=== PATIENT | female | born 1965 | race Caucasian/White ===

== ENCOUNTER 2017-01-13 13:17 | Inpatient (IN) | payer OTHER ==
[~2017-01-13] VITALS: Ht 170.2 cm; Wt 66.0 kg
[~2017-01-13 13:17] MED LIST: ALPR0.5T PO; AMOX1TAB10 PO; ASPI81TA3 PO; CHOL50009 PO; FLUC200T52 PO; GABA300C PO; HYD25 PO; HYDR-902 PO; IPRA3AMP INHALATION; IPRA4AER INHALATION; LACTINEX PO; LEVO25TA53 PO; NEBU1KIT17 MC; PRED10TA PO; VENL150C PO
--- NOTE | 2017-01-13 13:49 | ERA ---
ER Documentation Chief Complaint Date/Time DATE: 01/13/17 TIME: 13:49 Chief Complaint CHEST PAIN X 1 DAY HPI The patient is a 51-year-old female, presenting to the ER because of left-sided chest discomfort intermittently for 1 day, 04/17, associated with left hand numbness intermittently and dyspnea. She has similar symptoms previously. She denies chest pain with exertion or vomiting or diaphoresis. She denies abdominal pain, complains of constipation, denies dysuria, diarrhea. She smokes half a pack a day, denies drinking, smokes marijuana Past medical history: Depression, COPD, chronic low back pain, hypothyroidism, asthma Past surgical history: Hysterectomy, back, thoracic outlet, bilateral shoulder arthroscopy, bilateral knee arthroscopy ROS All systems reviewed and are negative except as per history of present illness. Medications Home Meds Active Scripts Fluconazole* (Fluconazole*) 200 Mg Tablet, 200 MG PO ONCE Y for YEAST SYMPTOMS, #1 TAB Prov:MESFIN BARBOZA. 06/26/16 Lactobacillus Acidophilus* (Lactinex*) 1 Tab Chew, 1 TAB PO BID for 5 Days, TAB Prov:MESFIN BARBOZA . 06/26/16 Amoxicillin/Potassium Clav (Amox-Clav 875-125 mg Tablet) 875-125 mg Tab, 1 TAB PO BID for 5 Days, TAB Prov:MESFIN BARBOZA 06/26/16 Nebulizer (Agiliance Disposable Nebulizer) 1 Each Each, 1 EACH MC ONCE Y for SHORTNESS OF BREATH, #1 Prov:MESFIN BARBOZA 06/26/16 Ipratropium-Albuterol (Ipratropium-Albuterol) 0.5-3 Mg/3 Ml Ampul.neb, 3 ML INHALATION Q6, #30 VIAL use every 6hours scheduled for 8 doses and then use as needed only every 4hours for shortness of breath Prov:MSEFIN BARBOZA 06/26/16 Albuterol/Ipratropium* (Combivent Respimat*) 20-100 Mcg/Inh - 4 Gm Aer.w.adap, 1 PUFF INHALATION QID, #1 INHALER Prov:MESFIN BARBOZA 06/26/16 Prednisone* (Prednisone*) 10 Mg Tab, 10 MG PO DAILY, #21 TAB take 6 pills tomorrow take 5 pills on the next day take 4 pills on the next day take 3 pills on the next day take 2 pills on the next day take 1 pill on the next day then stop Prov:MESFIN BARBOZA. 06/26/16 Aspirin (Aspirin) 81 Mg Chew, 81 MG PO DAILY for 30 Days, TAB Prov:MESFIN BARBOZA. 06/26/16 Alprazolam* (Xanax*) 0.5 Mg Tab, 0.5 MG PO QHS Y for ANXIETY, #20 TAB Prov:MESFIN BARBOZA. 06/26/16 Hydrochlorothiazide* (Hydrochlorothiazide*) 25 Mg Tab, 25 MG PO DAILY, #30 TAB Prov:DEACON MORALES MD 09/21/15 Reported Medications Topiramate* (Topiramate*) 100 Mg Tablet, 100 MG ORAL DAILY, #30 01/13/17 Hydrocodone/Acetaminophen ([place] 10-325 Tablet) 1 Each Tablet, 1 EACH PO Q6 Y for PAIN, TAB 06/20/16 Levothyroxine Sodium* (Levothyroxine Sodium*) 25 Mcg Tablet, 25 MCG PO AC BREAKFAST, TAB 03/21/15 Cholecalciferol* (Vitamin D*) 5,000 Unit Tablet, 5000 UNIT PO DAILY, TAB 03/21/15 Venlafaxine Hcl* (Effexor XR*) 150 Mg Cap.sr.24h, 300 MG PO QAM, CAP 08/08/14 Gabapentin* (Neurontin*) 300 Mg Capsule, 300 MG PO TID, CAP 08/08/14 Discontinued Reported Medications Hydrocodone/Acetaminophen ([place] 10-325 Tablet) 1 Each Tablet, 1 EACH PO Q6 Y for PAIN, TAB 06/20/16 Allergies Allergies: Coded Allergies: morphine (Verified Adverse Reaction, Unknown, headache, 06/22/16) Not an allergy PMhx/Soc History of Surgery: Yes (L50S1 Bilateral Spine Fusion Surg 2012,Hysterectomy) Anesthesia Reaction: No Hx Neurological Disorder: No Hx Respiratory Disorders: No Hx Cardiac Disorders: No Hx Psychiatric Problems: Yes (Depression) Hx Miscellaneous Medical Probl: Yes (chronic bronchitis) Hx Alcohol Use: No Hx Substance Use: No Hx Tobacco Use: Yes Physical Exam Vitals Vital Signs Date Time Temp Pulse Resp B/P Pulse Ox O2 Delivery O2 Flow Rate FiO2 01/13/17 15:24 65 17 113/65 98 Room Air 01/13/17 15:07 55 20 99 21 01/13/17 14:13 59 17 116/71 100 Room Air 01/13/17 13:21 98.1 75 18 135/72 99 Physical Exam Const: No acute distress. Head: Atraumatic. Eyes: Normal Conjunctiva. ENT: Normal External Ears, Nose and Mouth. Neck: Full range of motion. No meningismus. Resp: Bilateral expiratory wheezes Cardio: Regular rate and rhythm, no murmurs. Abd: Soft, non distended, normal bowel sounds, non tender. Skin: No petechiae or rashes. Back: No midline or flank tenderness. Ext: No cyanosis, or edema. Neur: Awake and alert. No focal deficit Psych: Normal Mood and Affect. Result Diagram: 01/13/17 1410 01/13/17 1410 Results 24 hrs Laboratory Tests Test 01/13/17 14:10 White Blood Count 9.410^3/ul Red Blood Count 3.5710^6/ul Hemoglobin 11.7g/dl Hematocrit 34.9% Mean Corpuscular Volume 97.8fl Mean Corpuscular Hemoglobin 32.8pg Mean Corpuscular Hemoglobin Concent 33.5g/dl Red Cell Distribution Width 12.7% Platelet Count 09512^3/UL Mean Platelet Volume 9.9fl Neutrophils % 77.9% Lymphocytes % 14.5% Monocytes % 6.4% Eosinophils % 0.6% Basophils % 0.3% Nucleated Red Blood Cells % 0.0/100WBC Neutrophils # 7.310^3/ul Lymphocytes # 1.410^3/ul Monocytes # 0.610^3/ul Eosinophils # 0.110^3/ul Basophils # 0.010^3/ul Nucleated Red Blood Cells # 0.010^3/ul Prothrombin Time 14.1Sec Prothrombin Time Ratio 1.1 INR International Normalized Ratio 1.09 Activated Partial Thromboplast Time 27.6Sec Sodium Level 140mmol/L Potassium Level 3.1mmol/L Chloride Level 115mmol/L Carbon Dioxide Level 18mmol/L Anion Gap 10 Blood Urea Nitrogen 12mg/dl Creatinine 0.61mg/dl Glucose Level 89mg/dl Calcium Level 8.1mg/dl Creatine Kinase 41IU/L Creatine Kinase Index 0.6 Creatinine Kinase MB (Mass) 0.26ng/ml Troponin I < 0.012ng/ml Current Medications Medications (Trade) Dose Ordered Sig/Marnie Route PRN Reason Start Time Stop Time Status Last Admin Dose Admin Sodium Chloride (NS) 1,000 ml @ 1,000 mls/hr Q1H ONCE IV 01/13/17 14:00 01/13/17 14:59 DC 01/13/17 14:05 Levalbuterol (Xopenex Neb) 1.25 mg ONCE ONCE HHN 01/13/17 14:00 01/13/17 14:01 DC 01/13/17 15:07 Ipratropium [place] (Atrovent 0.02% (Neb)) 0.5 mg ONCE ONCE HHN 01/13/17 14:00 01/13/17 14:01 DC 01/13/17 15:07 Aspirin (Aspirin) 325 mg ONCE ONCE PO 01/13/17 14:00 01/13/17 14:01 DC 01/13/17 14:05 Nitroglycerin (Nitroglycerin 2% Oint) 1 inch ONCE ONCE TD 01/13/17 14:00 01/13/17 14:01 DC 01/13/17 14:29 Potassium Chloride (Klor-Con 20) 40 meq ONCE STAT PO 01/13/17 15:16 01/13/17 15:28 DC 01/13/17 15:52 Procedures/MDM EKG: Read by emergency physician Rate/Rhythm: Normal Sinus Rhythm 94 beats/min QRS, ST, T-waves: No ST elevation, no T inversion, incomplete right bundle branch block, inferior, anterior, lateral ST abnormality Impression: Abnormal EKG [place] [id number] Radiology Main Line: [phone] DIAGNOSTIC IMAGING REPORT Patient: RAHEEL BAKER : 1965 Age: 51 Sex: F MR #: [id number] DOS: 01/13/17 1351 Ordering MD: CHICHI ALSTON MD Location: E/R Room/Bed: PROCEDURE: XR Chest. CLINICAL INDICATION: chest pain TECHNIQUE: Single frontal view of the chest was obtained COMPARISON: 06/19/16 FINDINGS: The heart and mediastinum are within normal limits. The lungs are clear. Previously seen nodular opacity overlying the right lower lobe is not visualized in the current study. There is a healed right posterior sixth rib fracture. There is no pleural effusion or pneumothorax. RPTAT: AA IMPRESSION: No acute disease. .Amandeep Ha MD, Date Time Electronically viewed and signed by .Amandeep Ha MD, MD on 01/13/2017 14: 21 .S/ CC: CHICHI ALSTON MD MEDICAL MAKING DECISION: The patient is a 51-year-old female with multiple cardiac risk factors, presenting with acute chest that is concerning for ACS, acute hypokalemia, acute bronchospasm. She was treated with aspirin 325 mg p.o. , 1 inch of nitroglycerin ointment to the chest wall for acute chest pain, potassium chloride 40 mEq p.o. for low potassium, Xopenex 1.25 mg and Atrovent 0.5 mg nebulizer for bronchospasm with good response The differential diagnoses considered include but are not limited to acute coronary syndrome, acute myocardial infarction, pericarditis, pulmonary embolism , aortic dissection, pneumonia, pleural effusion, pneumothorax, GERD, chest wall pain. Departure Diagnosis: Primary Impression: Chest pain Additional Impressions: Hypokalemia Anemia Condition: Stable Comments I discussed the findings with the patient. I discussed the patient with the on- call hospitalist Dr. Rene who was made aware of the lab, the treatment, the patient condition. The patient is admitted to telemetry at 3 PM The patient's blood pressure was elevated (>120/80) but appears stable without evidence of hypertension emergency or urgency. The patient was counseled about the risks of hypertension and urged to pursue outpatient monitoring and therapy within a week with their primary care physician. CHICHI ALSTON MD January 13, 2017 13:49
[2017-01-13] MEDS ORDERED: IPRATROPIUM (NEB) 0.5 MG/2.5 ML AMP HHN ONE (14:00)
[2017-01-13] MEDS ORDERED: NITROGLYCERIN 2% 1 GM OINT PKT TD ONE (14:00)
[2017-01-13] MEDS ORDERED: LEVALBUTEROL (NEB) 1.25 MG/0.5 ML AMP HHN ONE (14:00)
[2017-01-13] MEDS ORDERED: ASPIRIN 325 MG TAB PO ONE (14:00)
[2017-01-13] MEDS ORDERED: SOD CHLORIDE 0.9% 1,000 ML IV ONE (14:00)
--- NOTE | 2017-01-13 14:22 | RADRPT ---
PROCEDURE: XR Chest. CLINICAL INDICATION: chest pain TECHNIQUE: Single frontal view of the chest was obtained COMPARISON: 06/19/16 FINDINGS: The heart and mediastinum are within normal limits. The lungs are clear. Previously seen nodular opacity overlying the right lower lobe is not visualized in the current stud y. There is a healed right posterior sixth rib fracture. There is no pleural effusion or pneumothorax. RPTAT: AA IMPRESSION: No acute disease. .Amandeep Ha MD, MD Date Time Electronically viewed and signed by .Amandeep Ha MD, on 01/13/2017 14:21 .S/
[2017-01-13 14:29] LABS: ADD SCAN DIFF NO
[2017-01-13 14:31] LABS: BASOPHILS % 0.3 % (0.0-2.0); EOSINOPHILS # 0.1 10^3/ul (0.0-0.5); EOSINOPHILS % 0.6 % (0.0-7.0); HEMATOCRIT 34.9 % (37.0-47.0); HEMOGLOBIN 11.7 g/dl (12.0-16.0); LYMPHOCYTES # 1.4 10^3/ul (0.8-2.9); LYMPHOCYTES % 14.5 % (15.0-51.0); MEAN CORPUSCULAR HEMOGLOBIN 32.8 pg (29.0-33.0); MEAN CORPUSCULAR HGB CONC 33.5 g/dl (32.0-37.0); MEAN CORPUSCULAR VOLUME 97.8 fl (82.0-101.0); MEAN PLATELET VOLUME 9.9 fl (7.4-10.4); MONOCYTE # 0.6 10^3/ul (0.3-0.9); MONOCYTES % 6.4 % (0.0-11.0); NEUTROPHIL # 7.3 10^3/ul (1.6-7.5); NEUTROPHILS % 77.9 % (39.0-77.0); PLATELET COUNT 216 10^3/UL (140-415); RED BLOOD COUNT 3.57 10^6/ul (4.20-5.40); RED CELL DISTRIBUTION WIDTH 12.7 % (11.5-14.5); WHITE BLOOD COUNT 9.4 10^3/ul (4.8-10.8)
[2017-01-13] MEDS ORDERED: TOPI-25 ORAL (14:33)
[2017-01-13 14:46] LABS: INR 1.09; PROTIME 14.1 Sec (12.2-14.2); PT RATIO 1.1
[2017-01-13 14:47] LABS: PARTIAL THROMBOPLASTIN TIME 27.6 Sec (25.0-35.0)
[2017-01-13 14:51] LABS: CREATINE KINASE 41 IU/L (23-200)
[2017-01-13 14:52] LABS: ANION GAP 10 (8-16); BLOOD UREA NITROGEN 12 mg/dl (7-20); CALCIUM 8.1 mg/dl (8.4-10.2); CARBON DIOXIDE 18 mmol/L (21-31); CHLORIDE 115 mmol/L (97-110); CREATININE 0.61 mg/dl (0.44-1.00); GLUCOSE 89 mg/dl (70-220); POTASSIUM 3.1 mmol/L (3.5-5.1); SODIUM 140 mmol/L (135-144)
[2017-01-13 15:01] LABS: CK-MB 0.26 ng/ml (0.0-2.4)
[2017-01-13] MEDS ORDERED: POTASSIUM CHLORIDE (SR) 20 MEQ TAB PO STA (15:16)
[2017-01-13 15:18] LABS: TROPONIN-I < 0.012 ng/ml (0.00-0.12)
[2017-01-13] MEDS ORDERED: NITROGLYCERIN (SL) 0.4 MG TAB SL PRN (15:30)
[2017-01-13] MEDS ORDERED: ACETAMINOPHEN 325 MG TAB PO PRN (15:30)
[2017-01-13] MEDS ORDERED: morphine 2 MG INJ IV PRN (15:30)
[2017-01-13] MEDS ORDERED: ALBUTEROL/IPRATROPIUM (NEB) 3 ML AMP HHN PRN (15:30)
[2017-01-13] MEDS ORDERED: ONDANSETRON 4 MG INJ IV PRN (15:30)
[2017-01-13] MEDS ORDERED: NACL 0.9% 3 ML SYG IV SCH (15:30)
[2017-01-13] MEDS ORDERED: NA PHOSPHATE/BIPHOS 133 ML ENEMA PR PRN (15:30)
[2017-01-13] MEDS: FAMOTIDINE 20 MG TAB PO SCH (15:52)
--- NOTE | 2017-01-13 15:59 | HP ---
DATE OF ADMISSION: 01/13/2017 CHIEF COMPLAINT: Chest pain. HISTORY OF PRESENT ILLNESS: This is a 51-year-old female with past medical history of asthma, depre ssion and hypothyroidism who has been having chest pain for the last 2 days, getting progressively w orse. She also noticed some left arm numbness which is new. She also had some nausea symptoms and decreased appetite, some abdominal pain symptoms and also some loose stools, some positive chills, b ut denies fevers, no upper or lower GI bleeding, no headaches or dizziness or loss of consciousness. She became concerned and decided to come into the ER where today, she was found with questionable ST depressions on EKG as well. PAST MEDICAL HISTORY: As stated above. ALLERGIES: MORPHINE. MEDICATIONS AT HOME: 1. Augmentin b.i.d. 2. Fluconazole 200 mg p.r.n. 3. Combivent q.i.d. 4. Xanax 0.5 mg at bedtime p.r.n. 5. Aspirin 81 mg daily. 6. Gabapentin 300 mg t.i.d. 7. [place] 10/325 q.6h. 8. Topiramate 100 mg daily. 9. Effexor XR 300 mg q.a.m. 10. Hydrochlorothiazide 25 mg daily. 11. Lactobacillus b.i.d. 12. Levothyroxine 25 mcg every morning. 13. Prednisone 10 mg daily. 14. Vitamin D 5000 units daily. PAST SURGICAL HISTORY: She had a L5 fusion surgery performed in 2011. She had thoracic outlet surg julian performed as well in the past. FAMILY HISTORY: Mother had diabetes. Father diabetes. One of her brothers had heart problems. He r daughter has Xnytl-Gewgrzulh-Ygyle syndrome. SOCIAL HISTORY: She smoked half a pack of cigarettes a day for the last 2 years. Occasional alcoho l use and smokes medical marijuana. PHYSICAL EXAMINATION: VITAL SIGNS: T-max 98.1, pulse 75, respirations 18, blood pressure 135/72, saturating at 99% on colby m air. GENERAL: The patient is lying in bed, answering questions appropriately, wearing DuoNeb in mild dis tress. HEENT: Pupils equal, round, react to light. Extraocular muscles intact. NECK: Supple, no thyromegaly. LUNGS: Distant breath sounds bilaterally. CARDIOVASCULAR: S1, S2 heard. No rubs or gallops. ABDOMEN: Soft, nontender, nondistended. Normal bowel sounds. No rebound or guarding. MUSCULOSKELETAL: No lower extremity ____. NEUROLOGIC: No focal deficits. LABORATORIES: CBC is normal. Sodium 140, potassium 1.1, chloride 115, CO2 of 18, BUN of 12, creati nine 0.6, glucose 89. Troponin is negative x1. IMAGING: Chest x-ray: No acute disease. ASSESSMENT AND PLAN: A 51-year-old female with chest pain symptoms x2 days, rule out acute coronary syndrome. 1. Chest pain. Admit to telemetry floor. We will get a cardiology consult and 2D echocardiogram, check TSH, A1c and lipid panel. Trend her troponins, put her on morphine, oxygen, nitroglycerin and aspirin as well. Rule out for acute coronary syndrome. 2. History of asthma. Again, DuoNebs p.r.n. 3. History of depression, Ativan p.r.n. 4. Hypothyroidism. Continue to monitor for now. Continue Synthroid. Check thyroid panel. 5. Gastrointestinal prophylaxis. Put her on H2 maggie. 6. Deep venous thrombosis prophylaxis, heparin subQ. Dictated By: MARYCARMEN DAHL/DANIELLE Conf#: [id number] DID#: [id number]
[2017-01-13] MEDS ORDERED: HYDROCODONE/APAP (5/325) TAB PO ONE (17:00)
[2017-01-13] MEDS ORDERED: ACETAMINOPHEN 325 MG TAB PO ONE (17:00)
[2017-01-13] MEDS: ALBUTEROL/IPRATROPIUM (NEB) 3 ML AMP NEB SCH ×2 (17:00→22:05)
[2017-01-13 18:36] VITALS: Ht 170.2 cm; Wt 66.0 kg
[2017-01-13 18:37] VITALS: PULSE 49
[2017-01-13 19:59] VITALS: BP 90/51; RESP 20
[2017-01-13 20:20] VITALS: PULSE 54
[2017-01-13] MEDS: GABAPENTIN 300 MG CAP PO SCH (20:41)
[2017-01-13] MEDS: HEPARIN 5,000 UNIT/0.5 ML VIAL SC SCH (20:43)
[2017-01-13] MEDS: L ACIDOPHIL/B LACTIS/B LONGUM CAPSULE PO SCH (21:00)
--- NOTE | 2017-01-13 21:39 | CONS ---
DATE OF ADMISSION: 01/13/2017 DATE OF CONSULTATION: 01/13/2017 TYPE OF CONSULTATION: Cardiology. REASON FOR CONSULTATION: Abnormal EKG and chest pain. CHIEF COMPLAINT: Shortness of breath, chest pain. HISTORY OF PRESENT ILLNESS: Thank you for this referral. History obtained from the patient, marleny resendeze review of the old chart. A 51-year-old female with history of COPD, asthma, depression, thyroid disorder who came to emergency room with the above complaint. The patient ____ in the past ____ fe lt tight in the chest. She has been coughing for the past few days. The pain is anterior, worse wi th breathing or with cough. It feels tight. Not related to exertion, ____ arm numbness. At this p oint has been placed on nitroglycerin complaining of severe headache. ALLERGIES: MORPHINE. MEDICATIONS: Per medication reconciliation, personally reviewed. PAST MEDICAL HISTORY: As above mentioned. PAST SURGICAL HISTORY: Status post L5 fusion surgery, 2011. FAMILY HISTORY: The patient's brother had a cardiac arrest in his 30s. Apparently he was told that he had "alcohol heart attack." Daughter had WPW syndrome. SOCIAL HISTORY: The patient actively still smokes. Occasionally uses alcohol. Denies any drug abu se, except for the marijuana. REVIEW OF SYSTEMS: As above mentioned, all other except positive for above and back pain. PHYSICAL EXAMINATION: VITAL SIGNS: Temperature 98.2, heart rate of 54, blood pressure 90/51, respiration rate of 20, satu rating 97%. HEENT: Normocephalic, atraumatic. Pupils are equal. CARDIOVASCULAR: Regular rate and rhythm. Systolic murmur. PULMONARY: With no wheezes, no rhonchi. GASTROINTESTINAL: Soft, nontender. EXTREMITIES: With no significant lower extremity edema. NEUROLOGIC: Awake and alert. PSYCHIATRIC: Appeared to be calm. LABORATORY: Sodium 140, potassium 3.1, BUN of 12, creatinine 0.61, glucose of 89. Troponin less th an 0.012 x2. Review of the old chart shows patient had a Lexiscan stress test done on 06/20/2016, w [facility] showed ejection fraction of 66% with a normal study with no evidence of perfusion defect. EKG was personally reviewed, showed normal sinus rhythm with marked ST-T abnormalities, inferolateral is chemia, incomplete right bundle branch block noted. ASSESSMENT AND PLAN: 1. Chest pain, appeared to be atypical and not anginal, secondary to pulmonary disease. 2. Abnormal EKG. 3. History of hypertension, currently hypotensive and stable. 4. Hypokalemia. 5. Asthma/chronic obstructive pulmonary disease. 6. Back pain. 7. Hypothyroidism. RECOMMENDATIONS: I will discontinue the hydrochlorothiazide given her hypokalemia and hypotension. Pulmonary care as per internal medicine. Serial cardiac enzymes will be obtained. Echocardiogram has been ordered. We will order a CT coronary angiogram to evaluate for any coronary anatomy and se shea stenosis. Dictated By: LORE SOLIZ MD AV/NTS Conf#: [id number] DID#: [id number] CC: MARYCARMEN ARCEO; JEFE LINCOLN MD;*[facility]*
[2017-01-14] VITALS (12 sets, daily range): BP systolic 94–115; BP diastolic 50–65; PULSE 46–64; RESP 18–19
[2017-01-14 02:44] LABS: CREATINE KINASE 41 IU/L (23-200)
[2017-01-14 03:00] LABS: CK-MB 0.25 ng/ml (0.0-2.4)
[2017-01-14 03:52] LABS: TROPONIN-I < 0.012 ng/ml (0.00-0.12)
[2017-01-14] MEDS: LEVOTHYROXINE 25 MCG TAB PO SCH (08:05)
[2017-01-14] MEDS: FAMOTIDINE 20 MG TAB PO SCH (08:05)
[2017-01-14] MEDS: GABAPENTIN 300 MG CAP PO SCH ×3 (08:05→20:09)
[2017-01-14] MEDS: predniSONE 10 MG TAB PO SCH (08:05)
[2017-01-14] MEDS: CHOLECALCIFEROL 1,000 UNIT TAB PO SCH (08:06)
[2017-01-14] MEDS: VENLAFAXINE (XR) 75 MG CAP PO SCH (08:06)
[2017-01-14] MEDS: HEPARIN 5,000 UNIT/0.5 ML VIAL SC SCH ×2 (08:11→20:11)
[2017-01-14] MEDS: HYDROCODONE/APAP (10/325) TAB PO PRN ×3 (08:17→17:26)
[2017-01-14] MEDS: L ACIDOPHIL/B LACTIS/B LONGUM CAPSULE PO SCH ×2 (08:17→20:09)
[2017-01-14] MEDS: ALBUTEROL/IPRATROPIUM (NEB) 3 ML AMP NEB SCH ×4 (08:43→20:00)
[2017-01-14 08:52] LABS: ADD SCAN DIFF NO
[2017-01-14] MEDS ORDERED: HYDROCHLOROTHIAZIDE 25 MG TAB PO SCH (09:00)
[2017-01-14 09:06] LABS: BASOPHILS % 0.2 % (0.0-2.0); EOSINOPHILS # 0.1 10^3/ul (0.0-0.5); EOSINOPHILS % 2.3 % (0.0-7.0); HEMATOCRIT 37.4 % (37.0-47.0); HEMOGLOBIN 12.4 g/dl (12.0-16.0); LYMPHOCYTES # 1.9 10^3/ul (0.8-2.9); LYMPHOCYTES % 29.7 % (15.0-51.0); MEAN CORPUSCULAR HEMOGLOBIN 32.6 pg (29.0-33.0); MEAN CORPUSCULAR HGB CONC 33.2 g/dl (32.0-37.0); MEAN CORPUSCULAR VOLUME 98.4 fl (82.0-101.0); MONOCYTE # 0.5 10^3/ul (0.3-0.9); MONOCYTES % 8.2 % (0.0-11.0); NEUTROPHIL # 3.7 10^3/ul (1.6-7.5); NEUTROPHILS % 59.3 % (39.0-77.0); PLATELET COUNT 225 10^3/UL (140-415); WHITE BLOOD COUNT 6.2 10^3/ul (4.8-10.8)
[2017-01-14 09:11] LABS: CREATINE KINASE 49 IU/L (23-200)
[2017-01-14 09:18] LABS: ALBUMIN 4.1 g/dl (3.3-4.9); ALBUMIN/GLOBULIN RATIO 1.24; BILIRUBIN,INDIRECT 0.6 mg/dl (0-1.1); BILIRUBIN,TOTAL 0.6 mg/dl (0.2-1.3); CALCIUM 9.3 mg/dl (8.4-10.2); CREATININE 0.72 mg/dl (0.44-1.00); POTASSIUM 4.4 mmol/L (3.5-5.1); TOTAL PROTEIN 7.4 g/dl (6.1-8.1)
[2017-01-14 09:23] LABS: CK-MB 0.37 ng/ml (0.0-2.4)
[2017-01-14 09:27] LABS: CHOL/HDL RATIO 4.2 RATIO; TROPONIN-I < 0.012 ng/ml (0.00-0.12)
[2017-01-14 09:44] LABS: THYROID STIMULATING HORMONE 2.67 MIU/L (0.465-4.680)
[2017-01-14] MEDS ORDERED: NITROGLYCERIN AEROSOL (4.9 GM) ONE (10:00)
[2017-01-14] MEDS ORDERED: IOHEXOL 100 ML ONE (10:04)
[2017-01-14] MEDS ORDERED: SOD CHLORIDE 0.9% 100 ML ONE ×2 (10:04→10:05)
[2017-01-14] MEDS ORDERED: IOHEXOL 350MG/ML 50 ML BTL ONE (10:05)
--- NOTE | 2017-01-14 11:31 | PN ---
Date/Time of Note Date/Time of Note DATE: 01/14/17 TIME: 11:27 Assessment/Plan VTE Prophylaxis VTE Prophylaxis Intervention: heparin Lines/Catheters IV [facility] [place] Urinary Cath still in place: No Assessment/Plan Chief Complaint/Hosp Course ASSESSMENT AND PLAN: 51-year-old female with chest pain symptoms x2 days, rule out acute coronary syndrome. 1. Chest pain - trop is neg x 3. - f/u cardiology consult rec's and 2D echocardiogram, and CT coronary results. - continue morphine, oxygen, nitroglycerin and aspirin as well.. 2. History of asthma. Again, DuoNebs p.r.n. 3. History of depression, Ativan p.r.n. 4. Hypothyroidism. Continue to monitor for now. Continue Synthroid. Check thyroid panel. 5. Gastrointestinal prophylaxis. Put her on H2 maggie. 6. Deep venous thrombosis prophylaxis, heparin subQ. Problems: Subjective 24 Hr Interval Summary Free Text/Dictation Pt had CT coronory today, seen by Cv team yesterday. Exam/Review of Systems Vital Signs Vitals Vital Signs Date Time Temp Pulse Resp B/P Pulse Ox O2 Delivery O2 Flow Rate FiO2 01/14/17 08:43 68 18 97 21 01/14/17 08:06 97.6 111/56 01/13/17 17:40 Room Air Intake and Output 01/13/17 01/13/17 01/14/17 15:00 23:00 07:00 Intake Total 50 ml Balance 50 ml Exam GENERAL: The patient is lying in bed, answering questions appropriately, wearing DuoNeb in mild distress. HEENT: Pupils equal, round, react to light. Extraocular muscles intact. NECK: Supple, no thyromegaly. LUNGS: Distant breath sounds bilaterally. CARDIOVASCULAR: S1, S2 heard. No rubs or gallops. ABDOMEN: Soft, nontender, nondistended. Normal bowel sounds. No rebound or guarding. MUSCULOSKELETAL: No lower extremity edema B/L NEUROLOGIC: No focal deficits. Results Result Diagram: 01/14/17 0743 01/14/17 0743 Results 24 hrs Laboratory Tests Test 01/13/17 14:10 01/13/17 15:50 01/14/17 01:55 01/14/17 07:43 White Blood Count 9.4 # 6.2 # Red Blood Count 3.57 L 3.80 L Hemoglobin 11.7 L 12.4 Hematocrit 34.9 L 37.4 Mean Corpuscular Volume 97.8 98.4 Mean Corpuscular Hemoglobin 32.8 32.6 Mean Corpuscular Hemoglobin Concent 33.5 33.2 Red Cell Distribution Width 12.7 13.0 Platelet Count 216 225 Mean Platelet Volume 9.9 10.0 Neutrophils % 77.9 H 59.3 Lymphocytes % 14.5 L 29.7 Monocytes % 6.4 8.2 Eosinophils % 0.6 2.3 Basophils % 0.3 0.2 Nucleated Red Blood Cells % 0.0 0.0 Neutrophils # 7.3 3.7 Lymphocytes # 1.4 1.9 Monocytes # 0.6 0.5 Eosinophils # 0.1 0.1 Basophils # 0.0 0.0 Nucleated Red Blood Cells # 0.0 0.0 Prothrombin Time 14.1 Prothrombin Time Ratio 1.1 INR International Normalized Ratio 1.09 Activated Partial Thromboplast Time 27.6 Sodium Level 140 140 Potassium Level 3.1 L 4.4 Chloride Level 115 H 112 H Carbon Dioxide Level 18 L 22 Anion Gap 10 10 Blood Urea Nitrogen 12 15 Creatinine 0.61 0.72 Glucose Level 89 84 Calcium Level 8.1 L 9.3 Creatine Kinase 41 41 49 Creatine Kinase Index 0.6 0.6 0.8 Creatinine Kinase MB (Mass) 0.26 0.25 0.37 Troponin I < 0.012 < 0.012 < 0.012 Free Thyroxine 0.88 0.95 Hemoglobin A1c 5.2 Magnesium Level 2.0 Total Bilirubin 0.6 Direct Bilirubin 0.00 Indirect Bilirubin 0.6 Aspartate Amino Transf (AST/SGOT) 18 Alanine Aminotransferase (ALT/SGPT) 26 Alkaline Phosphatase 95 Total Protein 7.4 Albumin 4.1 Globulin 3.30 H Albumin/Globulin Ratio 1.24 Triglycerides Level 147 Cholesterol Level 187 LDL Cholesterol, Calculated 114 HDL Cholesterol 44 Cholesterol/HDL Ratio 4.2 Thyroid Stimulating Hormone (TSH) 2.670 Medications Medications Current Medications Ondansetron HCl (Zofran Inj) 4 mg Q6H PRN IV NAUSEA AND/OR VOMITING; Start 01/13 at 15:30 Acetaminophen (Tylenol Tab) 650 mg Q6H PRN PO PAIN LEVEL 1-3 OR FEVER; Start at 15:30 Acetaminophen/ Hydrocodone Bitart ([place] (5/325)) 1 tab Q6H PRN PO MODERATE PAIN LEVEL 4-6; Start 01/13/17 at 15:30 Docusate Sodium (Colace) 100 mg Q12H PRN PO CONSTIPATION; Start 01/13/17 at 15: 30 Magnesium Hydroxide (Milk Of Mag) 30 ml DAILY PRN PO CONSTIPATION; Start at 15:30 Sodium Biphosphate/ Sodium Phosphate (Fleet Enema) [address] CONSTIPATION; Start 01/13/17 at 15:30 Heparin Sodium (Porcine) (Heparin (5000 Units/0.5 ml)) 5,000 unit Q12 SC Last administered on 01/14/17 08:11; Admin Dose 5,000 UNIT; Start 01/13/17 at 21:00 Lorazepam (Ativan) 0.5 mg Q6H PRN IV ANXIETY; Start 01/13/17 at 15:30 Nitroglycerin (Nitroglycerin (Sl Tab) 0.4 Mg) 1 tab Q5M PRN SL ANGINA; Start at 15:30 Cholecalciferol (Vitamin D) 5,000 unit DAILY PO Last administered on 01/14/17 08:06; Admin Dose 5,000 UNIT; Start 01/14/17 at 09:00 Gabapentin (Neurontin) 300 mg TID PO Last administered on 01/14/17 08:05; Admin Dose 300 MG; Start 01/13/17 at 21:00 Prednisone (Prednisone) 10 mg DAILY PO Last administered on 01/14/17 08:05; Admin Dose 10 MG; Start 01/14/17 at 09:00 Venlafaxine HCl (Effexor Xr) 225 mg QAM PO Last administered on 01/14/17 08:06 ; Admin Dose 225 MG; Start 01/14/17 at 09:00 Lactobacillus Acidophilus ([place]3 Capsule) 1 each BID PO Last administered on 01/14/17 08:17; Admin Dose 1 EACH; Start 01/13/17 at 21:00 Famotidine (Pepcid) 20 mg DAILY PO Last administered on 01/14/17 08:05; Admin Dose 20 MG; Start 01/13/17 at 15:30 Acetaminophen/ Hydrocodone Bitart ([place] ()) 1 tab Q4H PRN PO PAIN Last administered on 5/9/17at 08:17; Admin Dose 1 TAB; Start 01/13/17 at 21:30 MARYCARMEN ARCEO January 14, 2017 11:31
--- NOTE | 2017-01-14 13:56 | RADRPT ---
Echocardiogram Report Patient Name: RAHEEL BAKER Gender: Female Date: 1965 Study Date: 13-Jan-2017 Intermediate Manager: ROGELIO RUST Location: [facility] Ref. Physician: MARYCARMEN ARCEO Quality: Technically Difficult Study Procedures: Transthoracic echocardiogram with complete 2D, M-Mode, and doppler examination. Indications: Chest Pain. 2D/M Mode Doppler Measurement Value Normal Ranges Measurement Value Normal Ranges LVIDd 2D 4.6 3.5 - 5.6 cm AV Peak [place] 0.9 m/sec LVIDs 2D 2.9 2.1 - 4.1 cm AV Peak PG 3.5 mmHg LVPWd 2D 1.0 0.6 - 1.1 cm LVOT Peak [place] 0.8 m/sec IVSd 2D 0.9 0.6 - 1.1 cm LVOT Peak PG 2.4 mmHg AoR Diam 2D 1.8 2.0 - 3.7 cm MV E Peak [place] 0.7 m/sec EDV 2D 98.4 cm3 MV A Peak [place] 0.8 m/sec ESV 2D 23.9 cm3 MV E/A 0.9 LA Dimen 2D 4.1 2.3 - 4.0 cm MV Decel Time 173 msec MV Decel [place] 4 MV E/A 0.9 Findings Left Ventricle: Normal left ventricular systolic function. Normal left ventricular cavity size. Normal left ventricular wall thickness. Ejection fraction is visually estimated at 65 %. Abnormal Diastolic Function. Right Ventricle: Normal right ventricular size. Normal right ventricular systolic function. Left Atrium: The left atrium is normal in size. Right Atrium: The right atrium is normal in size. Mitral Valve: Mild mitral leaflet calcification. Trace mitral regurgitation. Aortic Valve: Normal appearance of the aortic valve. No significant aortic stenosis or insufficiency. Tricuspid Valve: Tricuspid valve not well visualized. There is trace tricuspid regurgitation. Pericardium: Normal pericardium with no significant pericardial effusion. Aorta: Normal aortic root. IVC: Normal size and normal respiratory collapse consistent with normal right atrial pressure. Conclusions 1.Normal left ventricular systolic function. Normal left ventricular cavity size. Normal left ventricular wall thickness. Ejection fraction is visually estimated at 65 %. Abnormal Diastolic Function. 2.Mild mitral leaflet calcification. Trace mitral regurgitation. 3.Normal appearance of the aortic valve. No significant aortic stenosis or insufficiency. 4.Tricuspid valve not well visualized. There is trace tricuspid regurgitation. Electronically Signed By: Eladio Torres 14-Jan-2017 13:56:18 -0700 Patient Name: RAHEEL BAKER Study Date: 13-Jan-2017 [id number]
--- NOTE | 2017-01-14 14:26 | RADRPT ---
PROCEDURE: Ungated CT angiography of the chest with contrast. CT calcium score CLINICAL INDICATION: Chest pain TECHNIQUE: CT calcium score performed without intravenous contrast. Ungated contrast enhanced ang iography of the chest was performed on a high resolution multi detector scanner during the administr ation of intravenous contrast from the level of the main pulmonary artery through the base of the he art. Multiplanar reconstructions, three-dimensional reconstructions, as well as maximal intensity pr ojection images are produced and reviewed. One or more of the following dose reduction techniques we re used: Automated exposure control; Adjustment of the mA and/or kV according to patient size; Use o f iterative reconstruction technique, ECG dose mild dilation. CTDI = 8, 51, 8 mGy. DLP = 370 mGy-cm. CONTRAST: 100 ml Omnipaque 350 administered without adverse event. COMPARISON: Chest radiograph 01/13/2017 FINDINGS: CT calcium score: Total calcium score 53.0 CTA chest: No evidence of pulmonary emboli within the partially visualized proximal pulmonary arterial system. Pulmonary artery configuration: Normal caliber. Lung parenchyma: Minimal dependent atelectasis is present bilaterally. No acute air space infiltrat es within the visualized lungs. Airways: Mild peribronchial thickening is present suggestive of small airways disease. Aorta: Ungated examination demonstrates normal caliber. Minimal atherosclerotic changes are present. Heart: Ungated examination demonstrates no significant abnormality. Coronary arteries are not adequa tely visualized due to the cardiac lack of gating. Mediastinum: Normal. Lymph nodes: No mediastinal, hilar, or axillary lymphadenopathy Osseous structures: Intact. Visualized upper abdomen: No abnormalities IMPRESSION: Total calcium score 53.0 Evaluation of the coronary arteries is degraded due to incorrect CTA acquisition protocol resulting in ungated images. Repeated examination can be performed for further evaluation. RPTAT: AADD .Franklyn Ivey MD, Date Time Electronically viewed and signed by .Franklyn Ivey MD, MD on 01/14/2017 14:26 .B/
--- NOTE | 2017-01-14 16:12 | PN ---
DATE: 01/14/2017 CARDIOLOGY FOLLOWUP SUBJECTIVE: Discussed with the staff. Discussed with the radiologist. The patient still complaine d of chest discomfort, shortness of breath, tightness and headache. ____ in sinus rhythm. MEDICATIONS: Reviewed. PHYSICAL EXAMINATION: VITAL SIGNS: Temperature 98.2, heart rate of 62, blood pressure 115/65, respiratory rate of 20, sat urating 98%. HEENT: Normocephalic, atraumatic. Pupils are equal. CARDIOVASCULAR: Regular rate and rhythm, systolic murmur. PULMONARY: Mild rhonchi, diffuse. GASTROINTESTINAL: Soft, nontender. EXTREMITIES: No edema. NEUROLOGIC: Awake and alert. PSYCHIATRIC: Appeared to be calm. LABORATORY: Sodium 140, potassium 4.4, BUN of 15, creatinine 0.72, glucose of 84. Troponin has bee n negative. LDL is 114, HDL of 44. TSH 2.6. Echocardiogram was personally reviewed, which showed ejection fraction of about 65%. CT of the chest was done, but apparently a calcium score was only 53. However, evaluation of baron ry artery is "degraded" due to recurrent CTA acquisition protocol on the gated images. ASSESSMENT AND PLAN: 1. Chest pain, appeared to be nonanginal. 2. Abnormal EKG. 3. Severe pulmonary disease, asthma, chronic obstructive pulmonary disease. 4. Hypertension, currently stable. 5. Electrolyte abnormalities and hypokalemia, corrected. 6. Hypothyroidism and treatment. 7. Chronic back pain. RECOMMENDATIONS: So far, the workup has been negative. CT coronary angiogram has not been able to be done so far yet, though. Stress test previously was unremarkable. Pulmonary care to be continue d as per internal medicine. Dictated By: LORE JOHNSON/DANIELLE Conf#: [id number] DID#: [id number]
[2017-01-15] VITALS (12 sets, daily range): BP systolic 102–132; BP diastolic 56–71; PULSE 51–69; RESP 18
[2017-01-15] MEDS: HYDROCODONE/APAP (10/325) TAB PO PRN ×3 (02:44→12:53)
[2017-01-15] MEDS: ALBUTEROL/IPRATROPIUM (NEB) 3 ML AMP NEB SCH ×4 (07:37→20:43)
[2017-01-15] MEDS: LEVOTHYROXINE 25 MCG TAB PO SCH (08:13)
[2017-01-15] MEDS: predniSONE 10 MG TAB PO SCH (09:23)
[2017-01-15] MEDS: FAMOTIDINE 20 MG TAB PO SCH (09:23)
[2017-01-15] MEDS: GABAPENTIN 300 MG CAP PO SCH ×3 (09:23→20:45)
[2017-01-15] MEDS: L ACIDOPHIL/B LACTIS/B LONGUM CAPSULE PO SCH ×2 (09:23→20:44)
[2017-01-15] MEDS: VENLAFAXINE (XR) 75 MG CAP PO SCH (09:23)
[2017-01-15] MEDS: CHOLECALCIFEROL 1,000 UNIT TAB PO SCH (09:24)
[2017-01-15] MEDS: HEPARIN 5,000 UNIT/0.5 ML VIAL SC SCH ×2 (09:29→20:44)
--- NOTE | 2017-01-15 09:53 | PN ---
DATE: 01/15/2017 CARDIOLOGY FOLLOWUP SUBJECTIVE: Discussed with the staff. Rhythm strip was reviewed. The patient remains in sinus rhy thm, sinus bradycardia. She still complains of chest pain, discomfort. Also, complains of lower ab dominal pain and also cough and tightness in her chest especially with breathing. MEDICATIONS: Reviewed. PHYSICAL EXAMINATION: VITAL SIGNS: Temperature 98.2, heart rate of 51, blood pressure 130/71, respiration rate of 18, sat urating 100%. HEENT: Normocephalic, atraumatic. Pupils are equal. CARDIOVASCULAR: Regular rate and rhythm. PULMONARY: With mild rhonchi and wheezes. GASTROINTESTINAL: Soft, mild tenderness to palpation. No rebound or guarding. EXTREMITIES: No significant edema. NEUROLOGIC: Awake and alert. ASSESSMENT AND PLAN: 1. Chest pain, rule out coronary artery disease. 2. Abnormal EKG. 3. Pulmonary disease, asthma, COPD. 4. Hypertension. 5. Sinus bradycardia with no symptoms, thyroid disorder, on treatment. 6. Chronic back pain. RECOMMENDATIONS: CT cardiac angiogram has been ordered. However, has not been done right yet. Aminata iting CT coronary to rule out significant obstructive coronary artery disease. Troponins have been multiple times negative already though x4. Pulmonary care as per internal medicine. Dictated By: LORE JOHNSON/DANIELLE Conf#: [id number] DID#: [id number] CC: MARYCARMEN ARCEO;*EndCC*
[2017-01-15 09:59] LABS: ADD SCAN DIFF NO
[2017-01-15 10:08] LABS: BASOPHILS % 0.6 % (0.0-2.0); EOSINOPHILS # 0.1 10^3/ul (0.0-0.5); HEMATOCRIT 38.8 % (37.0-47.0); HEMOGLOBIN 12.8 g/dl (12.0-16.0); LYMPHOCYTES # 2.6 10^3/ul (0.8-2.9); LYMPHOCYTES % 38.8 % (15.0-51.0); MEAN CORPUSCULAR HEMOGLOBIN 32.2 pg (29.0-33.0); MEAN CORPUSCULAR VOLUME 97.7 fl (82.0-101.0); MEAN PLATELET VOLUME 9.8 fl (7.4-10.4); MONOCYTE # 0.4 10^3/ul (0.3-0.9); MONOCYTES % 5.3 % (0.0-11.0); NEUTROPHIL # 3.5 10^3/ul (1.6-7.5); PLATELET COUNT 234 10^3/UL (140-415); RED BLOOD COUNT 3.97 10^6/ul (4.20-5.40); RED CELL DISTRIBUTION WIDTH 12.6 % (11.5-14.5); WHITE BLOOD COUNT 6.6 10^3/ul (4.8-10.8)
[2017-01-15 10:26] LABS: CALCIUM 9.2 mg/dl (8.4-10.2); CREATININE 0.69 mg/dl (0.44-1.00)
[2017-01-15 10:30] LABS: POTASSIUM 2.9 mmol/L (3.5-5.1)
[2017-01-15] MEDS: POTASSIUM CHLORIDE 250 ML IVPB SCH ×2 (12:14→18:37)
--- NOTE | 2017-01-15 13:35 | PN ---
Date/Time of Note Date/Time of Note DATE: 01/15/17 TIME: 13:33 Assessment/Plan VTE Prophylaxis VTE Prophylaxis Intervention: heparin Lines/Catheters IV [facility] (from [facility] Saline Lock Urinary Cath still in place: No Assessment/Plan Chief Complaint/Hosp Course ASSESSMENT AND PLAN: 51-year-old female with chest pain symptoms x2 days, rule out acute coronary syndrome. 1. Chest pain - trop is neg x 3. - f/u cardiology consult rec's and and CT coronary results - unclear if this will be repeated, or new images will be obtained. - continue morphine, oxygen, nitroglycerin and aspirin as well. 2. History of asthma. Again, DuoNebs p.r.n. 3. History of depression, Ativan p.r.n. 4. Hypothyroidism. Continue to monitor for now. Continue Synthroid. Check thyroid panel. 5. Gastrointestinal prophylaxis - H2 maggie. 6. Deep venous thrombosis prophylaxis, heparin subQ. Problems: Subjective 24 Hr Interval Summary Free Text/Dictation Pt had CT coronary performed, but apparently this not performed right way. Seen by CV team. Still with some mild cp. Exam/Review of Systems Vital Signs Vitals Vital Signs Date Time Temp Pulse Resp B/P Pulse Ox O2 Delivery O2 Flow Rate FiO2 01/15/17 11:29 97.8 59 18 122/58 98 01/15/17 11:15 21 01/14/17 16:50 Nasal Cannula 2.0 Intake and Output 01/14/17 01/14/17 01/15/17 15:00 23:00 07:00 Intake Total 300 ml 580 ml Balance 300 ml 580 ml Exam GENERAL: The patient is lying in bed, answering questions appropriately, wearing DuoNeb in mild distress. HEENT: Pupils equal, round, react to light. Extraocular muscles intact. NECK: Supple, no thyromegaly. LUNGS: Distant breath sounds bilaterally. CARDIOVASCULAR: S1, S2 heard. No rubs or gallops. ABDOMEN: Soft, nontender, nondistended. Normal bowel sounds. No rebound or guarding. MUSCULOSKELETAL: No lower extremity edema B/L NEUROLOGIC: No focal deficits. Results Result Diagram: 01/15/1737 01/15/1737 Results 24 hrs Laboratory Tests Test 01/15/17 09:37 White Blood Count 6.6 Red Blood Count 3.97 L Hemoglobin 12.8 Hematocrit 38.8 Mean Corpuscular Volume 97.7 Mean Corpuscular Hemoglobin 32.2 Mean Corpuscular Hemoglobin Concent 33.0 Red Cell Distribution Width 12.6 Platelet Count 234 Mean Platelet Volume 9.8 Neutrophils % 53.0 Lymphocytes % 38.8 Monocytes % 5.3 Eosinophils % 2.0 Basophils % 0.6 Nucleated Red Blood Cells % 0.0 Neutrophils # 3.5 Lymphocytes # 2.6 Monocytes # 0.4 Eosinophils # 0.1 Basophils # 0.0 Nucleated Red Blood Cells # 0.0 Sodium Level 142 Potassium Level 2.9 *L Chloride Level 108 Carbon Dioxide Level 25 Anion Gap 12 Blood Urea Nitrogen 11 Creatinine 0.69 Glucose Level 133 # Calcium Level 9.2 Medications Medications Current Medications Ondansetron HCl (Zofran Inj) 4 mg Q6H PRN IV NAUSEA AND/OR VOMITING; Start 01/13 at 15:30 Acetaminophen (Tylenol Tab) 650 mg Q6H PRN PO PAIN LEVEL 1-3 OR FEVER; Start at 15:30 Acetaminophen/ Hydrocodone Bitart ([place] (5/325)) 1 tab Q6H PRN PO MODERATE PAIN LEVEL 4-6; Start 01/13/17 at 15:30 Docusate Sodium (Colace) 100 mg Q12H PRN PO CONSTIPATION; Start 01/13/17 at 15: 30 Magnesium Hydroxide (Milk Of Mag) 30 ml DAILY PRN PO CONSTIPATION; Start at 15:30 Sodium Biphosphate/ Sodium Phosphate (Fleet Enema) 133 ml DAILY PRN [place] CONSTIPATION; Start 01/13/17 at 15:30 Heparin Sodium (Porcine) (Heparin (5000 Units/0.5 ml)) 5,000 unit Q12 SC Last administered on 01/15/17 09:29; Admin Dose 5,000 UNIT; Start 01/13/17 at 21:00 Lorazepam (Ativan) 0.5 mg Q6H PRN IV ANXIETY; Start 01/13/17 at 15:30 Nitroglycerin (Nitroglycerin (Sl Tab) 0.4 Mg) 1 tab Q5M PRN SL ANGINA; Start at 15:30 Cholecalciferol (Vitamin D) 5,000 unit DAILY PO Last administered on 01/15/17 09:24; Admin Dose 5,000 UNIT; Start 01/14/17 at 09:00 Gabapentin (Neurontin) 300 mg TID PO Last administered on 01/15/17 12:29; Admin Dose 300 MG; Start 01/13/17 at 21:00 Prednisone (Prednisone) 10 mg DAILY PO Last administered on 01/15/17 09:23; Admin Dose 10 MG; Start 01/14/17 at 09:00 Venlafaxine HCl (Effexor Xr) 225 mg QAM PO Last administered on 01/15/17 09:23 ; Admin Dose 225 MG; Start 01/14/17 at 09:00 Lactobacillus Acidophilus (Florajen3 Capsule) 1 each BID PO Last administered on 01/15/17 09:23; Admin Dose 1 EACH; Start 01/13/17 at 21:00 Famotidine (Pepcid) 20 mg DAILY PO Last administered on 01/15/17 09:23; Admin Dose 20 MG; Start 01/13/17 at 15:30 Acetaminophen/ Hydrocodone Bitart 1 tab 1 tab Q4H PRN PO PAIN Last administered on 01/15/17 12:53; Admin Dose 1 TAB; Start 01/13/17 at 21:30 Potassium Chloride (KCl 40 MEQ/250 ML NS) 250 ml @ 62.5 mls/hr Q4H IVPB Last administered on 01/15/17 12:14; Admin Dose 62.5 MLS/HR; Start 01/15/17 at 12:00 ; Stop 01/15/17 at 19:59 Procedures Procedures 2D ECHO: Conclusions 1. Normal left ventricular systolic function. Normal left ventricular cavity size. Normal left ventricular wall thickness. Ejection fraction is visually estimated at 65 %. Abnormal Diastolic Function. 2. Mild mitral leaflet calcification. Trace mitral regurgitation. 3. Normal appearance of the aortic valve. No significant aortic stenosis or insufficiency. 4. Tricuspid valve not well visualized. There is trace tricuspid regurgitation. MARYCARMEN ARCEO January 15, 2017 13:35
[2017-01-15] MEDS: LORAZEPAM 2 MG INJ IV PRN (23:32)
[2017-01-16] VITALS (12 sets, daily range): BP systolic 100–142; BP diastolic 53–80; PULSE 49–77; RESP 16–19
[2017-01-16] MEDS: LEVOTHYROXINE 25 MCG TAB PO SCH (06:32)
[2017-01-16] MEDS: ALBUTEROL/IPRATROPIUM (NEB) 3 ML AMP NEB SCH ×4 (08:43→20:12)
[2017-01-16] MEDS: CHOLECALCIFEROL 1,000 UNIT TAB PO SCH (09:09)
[2017-01-16] MEDS: VENLAFAXINE (XR) 75 MG CAP PO SCH (09:10)
[2017-01-16] MEDS: predniSONE 10 MG TAB PO SCH (09:11)
[2017-01-16] MEDS: L ACIDOPHIL/B LACTIS/B LONGUM CAPSULE PO SCH ×2 (09:11→21:00)
[2017-01-16] MEDS: GABAPENTIN 300 MG CAP PO SCH ×3 (09:11→21:44)
[2017-01-16] MEDS: FAMOTIDINE 20 MG TAB PO SCH (09:11)
[2017-01-16] MEDS ORDERED: SOD CHLORIDE 0.9% 100 ML ONE (09:26)
[2017-01-16] MEDS ORDERED: IOHEXOL 350MG/ML 50 ML BTL ONE (09:26)
[2017-01-16] MEDS ORDERED: IOHEXOL 100 ML ONE (09:26)
[2017-01-16] MEDS: HEPARIN 5,000 UNIT/0.5 ML VIAL SC SCH (09:33)
[2017-01-16] MEDS ORDERED: NITROGLYCERIN AEROSOL (4.9 GM) ONE (09:42)
--- NOTE | 2017-01-16 10:01 | PN ---
DATE: 01/16/2017 CARDIOLOGY FOLLOWUP SUBJECTIVE: Discussed with the staff. Discussed with Dr. Arceo. The patient still with intermitten t chest pain, left-sided. She is not able to tolerate the nitroglycerin because of the headache. I spoke with Dr. Gonzalez, the results of the cardiac angiogram are still pending. MEDICATIONS: Reviewed as per medication reconciliation, personally reviewed. PHYSICAL EXAMINATION: VITAL SIGNS: Temperature 98.9, heart rate of 50, blood pressure 137/80, respiratory rate of 20, sat urating 98%. HEENT: Normocephalic, atraumatic. Pupils are equal. CARDIOVASCULAR: Regular rate and rhythm. PULMONARY: With no wheezes. CHEST: She has mild chest wall tenderness. GASTROINTESTINAL: Soft, nontender. EXTREMITIES: With no significant lower extremity edema. LABORATORY DATA: Most recent labs performed yesterday, sodium 142, potassium 2.9, BUN of 11, creati nine 0.69, glucose 133. ASSESSMENT 1. Chest pain with previously negative ischemic workup including a negative stress test. 2. Abnormal electrocardiogram. 3. History of pulmonary disease including asthma and chronic obstructive pulmonary disease. 4. Hypertension. 5. Marked bradycardia appears to be asymptomatic. 6. Back pain. 7. Hypokalemia. RECOMMENDATIONS: Electrolytes will be corrected. Awaiting a.m. labs from today. I have spoken wit h Dr. Gonzalez from radiology, he is looking into it to see if he can get the final results on the CT co ronary angiogram. Otherwise, it may have to be repeated. She has not tolerated the isosorbide well . I will start the patient on Ranexa. Dictated By: LORE JOHNSON/DANIELLE Conf#: [id number] DID#: [id number] CC: MARYCARMEN ARCEO;*EndCC*
[2017-01-16] MEDS: RANOLAZINE (SR) 500 MG TAB PO SCH ×2 (10:35→21:44)
[2017-01-16] MEDS: HYDROCODONE/APAP (10/325) TAB PO PRN ×3 (10:37→21:44)
--- NOTE | 2017-01-16 12:40 | RADRPT ---
PROCEDURE: CTA OF THE HEART AND CORONARY ARTERIES WITH CONTRAST CLINICAL INDICATION: Chest pain COMPARISON: CT calcium score 01/14/2017, cardiac stress perfusion examination 06/21/2016, cardiac CT A 09/21/2015 TECHNIQUE: Multiphasic ECG-gated volumetric acquisition from the ascending aorta to the diaphragm p erformed with intravenous contrast on a high-resolution multi detector scanner with multiphasic catherine nstructions. Multiplanar reconstructions, three-dimensional reconstructions, as well as maximal inte nsity projection images are produced and reviewed. One or more of the following dose reduction techn iques were used: Automated exposure control; Adjustment of the mA and/or kV according to patient siz e; Use of iterative reconstruction technique; ECG dose modulation. CTDI = 8, 27, 83 mGy. DLP = 1934 mGy-cm. Stenosis classification of vessels greater than 1.5 mm in diameter: None0% Minimal1-24% Dimo26-01% Ravamves61-54% Dljvqv06-04% Lkshgubz777% (When a vessel appears focally occluded with distal reconstitution there may be trac e patency which is below the resolution of the examination or collateral pathways may exist.) CONTRAST: 100 mL of Omnipaque 350 intravenously without adverse event. FINDINGS: CORONARY CT ANGIOGRAM: Overall quality of the CT angiographic examination is excellent. Normal origins of the coronary arteries are present. The coronary artery system is right dominant. Right Coronary Artery: Minimal noncalcified plaque present in the mid segment of the vessel without any significant stenosis, better visualized on the current examination. Posterior descending and pos terior lateral coronary artery branches are widely patent. Left Main Coronary Artery: Widely patent throughout, without focal significant stenosis. Left Anterior Descending Coronary Artery: Small mixed plaque present at the origin of the vessel hernandez s not produce any significant stenosis; better visualized on the current examination. Superficial br idging is present in the mid segment of the vessel over a length of 15 mm and a depth of less than 1 mm. Visualized septal and diagonal branches: Widely patent without focal irregularity, mural plaque, or significant stenosis. Left Circumflex Coronary Artery: Small calcified plaque present at the origin of the vessel does not produce any significant stenosis, unchanged. Visualized obtuse marginal branches: Widely patent throughout, without focal significant stenosis. Normal appearance of the pericardium. No pericardial effusion. Minimal thickening of the trileaflet aortic valve. Normal appearance of the mitral valve. Myocardial attenuation appears within normal limits. Left atrial appendage is well opacified. No evidence of intracardiac mass or thrombus. EXTRACARDIAC FINDINGS: Thoracic aorta: Normal caliber. Pulmonary vessels: Normal caliber pulmonary arteries. No evidence of central filling defect. Conven tional pulmonary venous return. Chest: The visualized lung parenchyma is unremarkable. No mediastinal lymphadenopathy. Abdomen: Incidental imaging of the upper abdomen is unremarkable. IMPRESSION: Right Coronary Artery: Minimal noncalcified plaque present in the mid segment of the vessel without any significant stenosis, better visualized on the current examination. Left Main Coronary Artery: Widely patent, unchanged. Left Anterior Descending Coronary Artery: Small mixed plaque present at the origin of the vessel hernandez s not produce any significant stenosis; better visualized on the current examination. Left Circumflex Coronary Artery: Small calcified plaque present at the origin of the vessel does not produce any significant stenosis, unchanged RPTAT: AADD .Franklyn Ivey MD, MD Date Time Electronically viewed and signed by .Franklyn Ivey MD, on 01/16/2017 12:39 .B/
[2017-01-16 14:19] LABS: ADD SCAN DIFF NO
[2017-01-16 14:23] LABS: BASOPHILS % 0.2 % (0.0-2.0); EOSINOPHILS % 0.1 % (0.0-7.0); HEMOGLOBIN 13.1 g/dl (12.0-16.0); LYMPHOCYTES # 1.1 10^3/ul (0.8-2.9); LYMPHOCYTES % 10.2 % (15.0-51.0); MEAN CORPUSCULAR HGB CONC 33.6 g/dl (32.0-37.0); MEAN CORPUSCULAR VOLUME 98.2 fl (82.0-101.0); MONOCYTE # 0.2 10^3/ul (0.3-0.9); MONOCYTES % 1.8 % (0.0-11.0); NEUTROPHILS % 87.3 % (39.0-77.0); PLATELET COUNT 261 10^3/UL (140-415); RED BLOOD COUNT 3.97 10^6/ul (4.20-5.40); RED CELL DISTRIBUTION WIDTH 12.7 % (11.5-14.5); WHITE BLOOD COUNT 10.3 10^3/ul (4.8-10.8)
[2017-01-16 14:36] LABS: POTASSIUM 4.4 mmol/L (3.5-5.1)
[2017-01-16 14:39] LABS: CALCIUM 9.9 mg/dl (8.4-10.2); CREATININE 0.7 mg/dl (0.44-1.00)
--- NOTE | 2017-01-16 14:43 | PN ---
Date/Time of Note Date/Time of Note DATE: 01/16/17 TIME: 14:41 Assessment/Plan VTE Prophylaxis VTE Prophylaxis Intervention: heparin Lines/Catheters IV C[facility]ter Type (from [facility]): Saline Lock Urinary Cath still in place: No Assessment/Plan Chief Complaint/Hosp Course ASSESSMENT AND PLAN: 51-year-old female with chest pain symptoms x2 days, rule out acute coronary syndrome. 1. Chest pain - trop is neg x 3. Repeat CT coronary showed: IMPRESSION: Right Coronary Artery: Minimal noncalcified plaque present in the mid segment of the vessel without any significant stenosis, better visualized on the current examination. Left Main Coronary Artery: Widely patent, unchanged. Left Anterior Descending Coronary Artery: Small mixed plaque present at the origin of the vessel does not produce any significant stenosis; better visualized on the current examination. Left Circumflex Coronary Artery: Small calcified plaque present at the origin of the vessel does not produce any significant stenosis, unchanged - f/u cardiology consult rec's. - continue morphine, oxygen, nitroglycerin and aspirin as well. 2. History of asthma. Again, DuoNebs p.r.n. 3. History of depression, Ativan p.r.n. 4. Hypothyroidism. Continue to monitor for now. Continue Synthroid. Check thyroid panel. 5. Gastrointestinal prophylaxis - H2 maggie. 6. Deep venous thrombosis prophylaxis, heparin subQ. Problems: Subjective 24 Hr Interval Summary Free Text/Dictation Pt had repeat CT performed today. No acute events overnight. Exam/Review of Systems Vital Signs Vitals Vital Signs Date Time Temp Pulse Resp B/P Pulse Ox O2 Delivery O2 Flow Rate FiO2 01/16/17 12:12 74 01/16/17 12:11 18 97 21 01/16/17 11:47 98.0 142/60 01/14/17 16:50 Nasal Cannula 2.0 Intake and Output 01/15/17 01/15/17 01/16/17 15:00 23:00 07:00 Intake Total 900 ml Balance 900 ml Exam GENERAL: The patient is lying in bed, answering questions appropriately, wearing DuoNeb in mild distress. HEENT: Pupils equal, round, react to light. Extraocular muscles intact. NECK: Supple, no thyromegaly. LUNGS: Distant breath sounds bilaterally. CARDIOVASCULAR: S1, S2 heard. No rubs or gallops. ABDOMEN: Soft, nontender, nondistended. Normal bowel sounds. No rebound or guarding. MUSCULOSKELETAL: No lower extremity edema B/L NEUROLOGIC: No focal deficits. Results Result Diagram: 01/16/17 1340 01/16/17 1340 Results 24 hrs Laboratory Tests Test 01/16/17 13:40 White Blood Count 10.3 # Red Blood Count 3.97 L Hemoglobin 13.1 Hematocrit 39.0 Mean Corpuscular Volume 98.2 Mean Corpuscular Hemoglobin 33.0 Mean Corpuscular Hemoglobin Concent 33.6 Red Cell Distribution Width 12.7 Platelet Count 261 Mean Platelet Volume 10.0 Neutrophils % 87.3 H Lymphocytes % 10.2 L Monocytes % 1.8 Eosinophils % 0.1 Basophils % 0.2 Nucleated Red Blood Cells % 0.0 Neutrophils # 9.0 H Lymphocytes # 1.1 Monocytes # 0.2 L Eosinophils # 0.0 Basophils # 0.0 Nucleated Red Blood Cells # 0.0 Sodium Level 143 Potassium Level 4.4 Chloride Level 103 Carbon Dioxide Level Pending Anion Gap Pending Blood Urea Nitrogen Pending Creatinine Pending Glucose Level Pending Calcium Level Pending Medications Medications Current Medications Ondansetron HCl (Zofran Inj) 4 mg Q6H PRN IV NAUSEA AND/OR VOMITING; Start 01/13 at 15:30 Acetaminophen (Tylenol Tab) 650 mg Q6H PRN PO PAIN LEVEL 1-3 OR FEVER; Start at 15:30 Acetaminophen/ Hydrocodone Bitart ([place] (5/325)) 1 tab Q6H PRN PO MODERATE PAIN LEVEL 4-6; Start 01/13/17 at 15:30 Docusate Sodium (Colace) 100 mg Q12H PRN PO CONSTIPATION; Start 01/13/17 at 15: 30 Magnesium Hydroxide (Milk Of Mag) 30 ml DAILY PRN PO CONSTIPATION; Start at 15:30 Sodium Biphosphate/ Sodium Phosphate (Fleet Enema) 133 ml DAILY PRN [place] CONSTIPATION; Start 01/13/17 at 15:30 Heparin Sodium (Porcine) (Heparin (5000 Units/0.5 ml)) 5,000 unit Q12 SC Last administered on 01/16/17 09:33; Admin Dose 5,000 UNIT; Start 01/13/17 at 21:00 Lorazepam (Ativan) 0.5 mg Q6H PRN IV ANXIETY Last administered on 01/15/17 23: 32; Admin Dose 0.5 MG; Start 01/13/17 at 15:30 Nitroglycerin (Nitroglycerin (Sl Tab) 0.4 Mg) 1 tab Q5M PRN SL ANGINA; Start at 15:30 Cholecalciferol (Vitamin D) 5,000 unit DAILY PO Last administered on 01/16/17 09:09; Admin Dose 5,000 UNIT; Start 01/14/17 at 09:00 Gabapentin (Neurontin) 300 mg TID PO Last administered on 01/16/17 13:39; Admin Dose 300 MG; Start 01/13/17 at 21:00 Prednisone (Prednisone) 10 mg DAILY PO Last administered on 01/16/17 09:11; Admin Dose 10 MG; Start 01/14/17 at 09:00 Venlafaxine HCl (Effexor Xr) 225 mg QAM PO Last administered on 01/16/17 09:10 ; Admin Dose 225 MG; Start 01/14/17 at 09:00 Lactobacillus Acidophilus (Florajen3 Capsule) 1 each BID PO Last administered on 01/16/17 09:11; Admin Dose 1 EACH; Start 01/13/17 at 21:00 Famotidine (Pepcid) 20 mg DAILY PO Last administered on 01/16/17 09:11; Admin Dose 20 MG; Start 01/13/17 at 15:30 Acetaminophen/ Hydrocodone Bitart ([place] (10/325)) 1 tab Q4H PRN PO PAIN Last administered on 01/16/17 10:37; Admin Dose 1 TAB; Start 01/13/17 at 21:30 Ranolazine (Ranexa) 500 mg Q12 PO Last administered on 01/16/17 10:35; Admin Dose 500 MG; Start 01/16/17 at 10:00 MARYCARMEN ARCEO January 16, 2017 14:43
[2017-01-16] MEDS: LORAZEPAM 2 MG INJ IV PRN (21:45)
[2017-01-17] VITALS (11 sets, daily range): BP systolic 107–140; BP diastolic 57–71; PULSE 57–86; RESP 16–18
[2017-01-17] MEDS: LORAZEPAM 2 MG INJ IV PRN ×2 (01:59→03:41)
[2017-01-17] MEDS: HEPARIN 5,000 UNIT/0.5 ML VIAL SC SCH ×3 (05:45→20:54)
[2017-01-17] MEDS: HYDROCODONE/APAP (10/325) TAB PO PRN ×3 (05:51→21:38)
[2017-01-17] MEDS: LEVOTHYROXINE 25 MCG TAB PO SCH (05:52)
[2017-01-17] MEDS: ALBUTEROL/IPRATROPIUM (NEB) 3 ML AMP NEB SCH ×4 (07:41→20:00)
[2017-01-17] MEDS: FAMOTIDINE 20 MG TAB PO SCH (09:30)
[2017-01-17] MEDS: VENLAFAXINE (XR) 75 MG CAP PO SCH (09:31)
[2017-01-17] MEDS: CHOLECALCIFEROL 1,000 UNIT TAB PO SCH (09:31)
[2017-01-17] MEDS: GABAPENTIN 300 MG CAP PO SCH ×3 (09:31→21:39)
[2017-01-17] MEDS: L ACIDOPHIL/B LACTIS/B LONGUM CAPSULE PO SCH ×2 (09:31→21:00)
[2017-01-17] MEDS: predniSONE 10 MG TAB PO SCH (09:31)
[2017-01-17] MEDS: RANOLAZINE (SR) 500 MG TAB PO SCH ×2 (09:31→21:00)
[2017-01-17 11:17] LABS: ADD SCAN DIFF NO
[2017-01-17 11:26] LABS: BASOPHILS % 0.3 % (0.0-2.0); EOSINOPHILS # 0.2 10^3/ul (0.0-0.5); EOSINOPHILS % 1.4 % (0.0-7.0); HEMATOCRIT 38.5 % (37.0-47.0); HEMOGLOBIN 12.6 g/dl (12.0-16.0); LYMPHOCYTES # 3.4 10^3/ul (0.8-2.9); LYMPHOCYTES % 30.4 % (15.0-51.0); MEAN CORPUSCULAR HEMOGLOBIN 32.1 pg (29.0-33.0); MEAN CORPUSCULAR HGB CONC 32.7 g/dl (32.0-37.0); MEAN CORPUSCULAR VOLUME 98.2 fl (82.0-101.0); MEAN PLATELET VOLUME 10.3 fl (7.4-10.4); MONOCYTE # 0.6 10^3/ul (0.3-0.9); MONOCYTES % 5.1 % (0.0-11.0); NEUTROPHILS % 62.6 % (39.0-77.0); PLATELET COUNT 233 10^3/UL (140-415); RED BLOOD COUNT 3.92 10^6/ul (4.20-5.40); RED CELL DISTRIBUTION WIDTH 12.8 % (11.5-14.5); WHITE BLOOD COUNT 11.2 10^3/ul (4.8-10.8)
[2017-01-17 11:50] LABS: CREATININE 0.7 mg/dl (0.44-1.00)
[2017-01-17 11:51] LABS: CALCIUM 9.3 mg/dl (8.4-10.2)
[2017-01-17 12:13] LABS: POTASSIUM 2.9 mmol/L (3.5-5.1)
[2017-01-17] MEDS ORDERED: POTASSIUM CHLORIDE 250 ML IVPB SCH (13:30)
[2017-01-17] MEDS ORDERED: POTASSIUM CHLORIDE (SR) 20 MEQ TAB PO STA ×2 (14:29)
--- NOTE | 2017-01-17 14:35 | PN ---
Date/Time of Note Date/Time of Note DATE: 01/17/17 TIME: 14:32 Assessment/Plan VTE Prophylaxis VTE Prophylaxis Intervention: heparin Lines/Catheters IV [facility]from [facility] Saline Lock Urinary Cath still in place: No Assessment/Plan Chief Complaint/Hosp Course ASSESSMENT AND PLAN: 51-year-old female with chest pain symptoms x2 days, rule out acute coronary syndrome. 1. Chest pain - trop is neg x 3. IMPRESSION: Repeat CT coronary showed: Right Coronary Artery: Minimal noncalcified plaque present in the mid segment of the vessel without any significant stenosis, better visualized on the current examination. Left Main Coronary Artery: Widely patent, unchanged. Left Anterior Descending Coronary Artery: Small mixed plaque present at the origin of the vessel does not produce any significant stenosis; better visualized on the current examination. Left Circumflex Coronary Artery: Small calcified plaque present at the origin of the vessel does not produce any significant stenosis, unchanged - f/u cardiology consult rec's. - continue morphine, oxygen, nitroglycerin and aspirin as well. 2. History of asthma. Again, DuoNebs p.r.n., add abx, IV steroids 3. History of depression, Ativan p.r.n. 4. Hypothyroidism. Continue to monitor for now. Continue Synthroid. 5. Gastrointestinal prophylaxis - H2 maggie. 6. Deep venous thrombosis prophylaxis, heparin subQ. Problems: Subjective 24 Hr Interval Summary Free Text/Dictation Pt still with some SOB and cp symptoms. Exam/Review of Systems Vital Signs Vitals Vital Signs Date Time Temp Pulse Resp B/P Pulse Ox O2 Delivery O2 Flow Rate FiO2 01/17/17 12:42 79 18 99 21 01/17/17 12:07 98.0 107/59 01/14/17 16:50 Nasal Cannula 2.0 Intake and Output 01/16/17 01/16/17 01/17/17 15:00 23:00 07:00 Intake Total 800 ml Output Total 7 ml Balance 793 ml Exam GENERAL: The patient is lying in bed, answering questions appropriately HEENT: Pupils equal, round, react to light. Extraocular muscles intact. NECK: Supple, no thyromegaly. LUNGS: + rhonchi B/L, mild wheezes as well. CARDIOVASCULAR: S1, S2 heard. No rubs or gallops. ABDOMEN: Soft, nontender, nondistended. Normal bowel sounds. No rebound or guarding. MUSCULOSKELETAL: No lower extremity edema B/L NEUROLOGIC: No focal deficits. Results Result Diagram: 01/17/17 1017 01/17/17 1017 Results 24 hrs Laboratory Tests Test 01/17/17 10:17 White Blood Count 11.2 H Red Blood Count 3.92 L Hemoglobin 12.6 Hematocrit 38.5 Mean Corpuscular Volume 98.2 Mean Corpuscular Hemoglobin 32.1 Mean Corpuscular Hemoglobin Concent 32.7 Red Cell Distribution Width 12.8 Platelet Count 233 Mean Platelet Volume 10.3 Neutrophils % 62.6 Lymphocytes % 30.4 Monocytes % 5.1 Eosinophils % 1.4 Basophils % 0.3 Nucleated Red Blood Cells % 0.0 Neutrophils # 7.0 Lymphocytes # 3.4 H Monocytes # 0.6 Eosinophils # 0.2 Basophils # 0.0 Nucleated Red Blood Cells # 0.0 Sodium Level 143 Potassium Level 2.9 *L Chloride Level 103 Carbon Dioxide Level 26 Anion Gap 17 H Blood Urea Nitrogen 19 Creatinine 0.70 Glucose Level 77 # Calcium Level 9.3 Medications Medications Current Medications Ondansetron HCl (Zofran Inj) 4 mg Q6H PRN IV NAUSEA AND/OR VOMITING; Start 01/13 at 15:30 Acetaminophen (Tylenol Tab) 650 mg Q6H PRN PO PAIN LEVEL 1-3 OR FEVER; Start at 15:30 Acetaminophen/ Hydrocodone Bitart ([place] (5/325)) 1 tab Q6H PRN PO MODERATE PAIN LEVEL 4-6; Start 01/13/17 at 15:30 Docusate Sodium (Colace) 100 mg Q12H PRN PO CONSTIPATION; Start 01/13/17 at 15: 30 Magnesium Hydroxide (Milk Of Mag) 30 ml DAILY PRN PO CONSTIPATION; Start at 15:30 Sodium Biphosphate/ Sodium Phosphate (Fleet Enema) 133 ml DAILY PRN [place] CONSTIPATION; Start 01/13/17 at 15:30 Heparin Sodium (Porcine) (Heparin (5000 Units/0.5 ml)) 5,000 unit Q12 SC Last administered on 01/17/17 09:52; Admin Dose 5,000 UNIT; Start 01/13/17 at 21:00 Lorazepam (Ativan) 0.5 mg Q6H PRN IV ANXIETY Last administered on 01/17/17 03: 41; Admin Dose 0.5 MG; Start 01/13/17 at 15:30 Nitroglycerin (Nitroglycerin (Sl Tab) 0.4 Mg) 1 tab Q5M PRN SL ANGINA; Start at 15:30 Cholecalciferol (Vitamin D) 5,000 unit DAILY PO Last administered on 01/17/17 09:31; Admin Dose 5,000 UNIT; Start 01/14/17 at 09:00 Gabapentin (Neurontin) 300 mg TID PO Last administered on 01/17/17 12:47; Admin Dose 300 MG; Start 01/13/17 at 21:00 Venlafaxine HCl (Effexor Xr) 225 mg QAM PO Last administered on 01/17/17 09:31 ; Admin Dose 225 MG; Start 01/14/17 at 09:00 Lactobacillus Acidophilus (Florajen3 Capsule) 1 each BID PO Last administered on 01/17/17 09:31; Admin Dose 1 EACH; Start 01/13/17 at 21:00 Famotidine (Pepcid) 20 mg DAILY PO Last administered on 01/17/17 09:30; Admin Dose 20 MG; Start 01/13/17 at 15:30 Acetaminophen/ Hydrocodone Bitart ([place] (10/325)) 1 tab Q4H PRN PO PAIN Last administered on 01/17/17 12:10; Admin Dose 1 TAB; Start 01/13/17 at 21:30 Ranolazine (Ranexa) 500 mg Q12 PO Last administered on 01/17/17 09:31; Admin Dose 500 MG; Start 01/16/17 at 10:00 Methylprednisolone Sodium Succinate (Solu-Medrol) 60 mg Q6 IV ; Start 01/17/17 at 14:30; Status MARYCARMEN MILLAN January 17, 2017 14:35
[2017-01-17] MEDS: METHYLPREDNISOLONE 125 MG INJ IV SCH ×2 (14:51→19:00)
[2017-01-17] MEDS ORDERED: CEPASTAT LOZENGE MT PRN (15:00)
[2017-01-17] MEDS: LEVOFLOXACIN 750MG/D5W (PMX) 150 ML IVPB SCH (16:17)
[2017-01-17] MEDS ORDERED: POTASSIUM CHLORIDE (SR) 20 MEQ TAB PO ONE (18:30)
[2017-01-18] VITALS (12 sets, daily range): BP systolic 101–135; BP diastolic 59–67; PULSE 52–70; RESP 16–20
[2017-01-18] MEDS: LORAZEPAM 2 MG INJ IV PRN (02:48)
[2017-01-18] MEDS: METHYLPREDNISOLONE 125 MG INJ IV SCH ×4 (04:34→18:04)
[2017-01-18] MEDS: LEVOTHYROXINE 25 MCG TAB PO SCH (04:37)
[2017-01-18] MEDS: ALBUTEROL/IPRATROPIUM (NEB) 3 ML AMP NEB SCH ×4 (08:53→20:36)
[2017-01-18] MEDS: L ACIDOPHIL/B LACTIS/B LONGUM CAPSULE PO SCH ×2 (09:00→21:01)
[2017-01-18] MEDS: HYDROCODONE/APAP (10/325) TAB PO PRN (09:55)
[2017-01-18] MEDS: FAMOTIDINE 20 MG TAB PO SCH (09:56)
[2017-01-18] MEDS: GABAPENTIN 300 MG CAP PO SCH ×3 (09:56→21:01)
[2017-01-18] MEDS: CHOLECALCIFEROL 1,000 UNIT TAB PO SCH (09:56)
[2017-01-18] MEDS: VENLAFAXINE (XR) 75 MG CAP PO SCH (09:56)
[2017-01-18] MEDS: RANOLAZINE (SR) 500 MG TAB PO SCH ×2 (09:57→21:01)
[2017-01-18] MEDS: HEPARIN 5,000 UNIT/0.5 ML VIAL SC SCH ×2 (10:00→21:03)
[2017-01-18 10:18] LABS: ADD SCAN DIFF NO
[2017-01-18 10:25] LABS: BASOPHILS % 0.1 % (0.0-2.0); HEMATOCRIT 40.2 % (37.0-47.0); HEMOGLOBIN 13.5 g/dl (12.0-16.0); LYMPHOCYTES # 0.7 10^3/ul (0.8-2.9); MEAN CORPUSCULAR HEMOGLOBIN 32.8 pg (29.0-33.0); MEAN CORPUSCULAR HGB CONC 33.6 g/dl (32.0-37.0); MEAN CORPUSCULAR VOLUME 97.6 fl (82.0-101.0); MEAN PLATELET VOLUME 9.9 fl (7.4-10.4); MONOCYTE # 0.2 10^3/ul (0.3-0.9); MONOCYTES % 1.3 % (0.0-11.0); NEUTROPHIL # 10.9 10^3/ul (1.6-7.5); NEUTROPHILS % 91.5 % (39.0-77.0); PLATELET COUNT 259 10^3/UL (140-415); RED BLOOD COUNT 4.12 10^6/ul (4.20-5.40); RED CELL DISTRIBUTION WIDTH 12.7 % (11.5-14.5)
[2017-01-18 10:44] LABS: CALCIUM 10.5 mg/dl (8.4-10.2); CREATININE 0.66 mg/dl (0.44-1.00); POTASSIUM 3.9 mmol/L (3.5-5.1)
[2017-01-18] MEDS ORDERED: POTASSIUM CHLORIDE (SR) 20 MEQ TAB PO STA (14:05)
--- NOTE | 2017-01-18 14:09 | PN ---
Date/Time of Note Date/Time of Note DATE: 01/18/17 TIME: 14:08 Assessment/Plan VTE Prophylaxis VTE Prophylaxis Intervention: heparin Lines/Catheters IV [facility]from [facility] Saline Lock Urinary Cath still in place: No Assessment/Plan Chief Complaint/Hosp Course ASSESSMENT AND PLAN: 51-year-old female with chest pain symptoms x2 days, rule out acute coronary syndrome. 1. Chest pain - trop is neg x 3. IMPRESSION: Repeat CT coronary showed: Right Coronary Artery: Minimal noncalcified plaque present in the mid segment of the vessel without any significant stenosis, better visualized on the current examination. Left Main Coronary Artery: Widely patent, unchanged. Left Anterior Descending Coronary Artery: Small mixed plaque present at the origin of the vessel does not produce any significant stenosis; better visualized on the current examination. Left Circumflex Coronary Artery: Small calcified plaque present at the origin of the vessel does not produce any significant stenosis, unchanged - f/u cardiology consult rec's. - continue morphine, oxygen, nitroglycerin and aspirin as well. 2. History of asthma. Again, DuoNebs Q4Hrs, abx, IV steroids, 3. History of depression, Ativan p.r.n. 4. Hypothyroidism. Continue to monitor for now. Continue Synthroid. 5. Gastrointestinal prophylaxis - H2 maggie. 6. Deep venous thrombosis prophylaxis, heparin subQ. 7. Smoking - cessation, nicotine patch Problems: Subjective 24 Hr Interval Summary Free Text/Dictation Pt has slightly less SOB, but still + cough. Had questions about her low potassium. Exam/Review of Systems Vital Signs Vitals Vital Signs Date Time Temp Pulse Resp B/P Pulse Ox O2 Delivery O2 Flow Rate FiO2 01/18/17 13:13 70 01/18/17 12:01 18 100 21 01/18/17 11:45 98.5 135/63 01/14/17 16:50 Nasal Cannula 2.0 Intake and Output 01/17/17 01/17/17 01/18/17 15:00 23:00 07:00 Intake Total 700 ml Balance 700 ml Exam GENERAL: The patient is lying in bed, answering questions appropriately HEENT: Pupils equal, round, react to light. Extraocular muscles intact. NECK: Supple, no thyromegaly. LUNGS: still + rhonchi B/L, mild wheezes as well. CARDIOVASCULAR: S1, S2 heard. No rubs or gallops. ABDOMEN: Soft, nontender, nondistended. Normal bowel sounds. No rebound or guarding. MUSCULOSKELETAL: No lower extremity edema B/L NEUROLOGIC: No focal deficits. Results Result Diagram: 01/18/17 0940 01/18/17 0940 Results 24 hrs Laboratory Tests Test 01/18/17 09:40 White Blood Count 12.0 H Red Blood Count 4.12 L Hemoglobin 13.5 Hematocrit 40.2 Mean Corpuscular Volume 97.6 Mean Corpuscular Hemoglobin 32.8 Mean Corpuscular Hemoglobin Concent 33.6 Red Cell Distribution Width 12.7 Platelet Count 259 Mean Platelet Volume 9.9 Neutrophils % 91.5 H Lymphocytes % 6.0 L Monocytes % 1.3 Eosinophils % 0.0 Basophils % 0.1 Nucleated Red Blood Cells % 0.0 Neutrophils # 10.9 H Lymphocytes # 0.7 L Monocytes # 0.2 L Eosinophils # 0.0 Basophils # 0.0 Nucleated Red Blood Cells # 0.0 Sodium Level 140 Potassium Level 3.9 Chloride Level 104 Carbon Dioxide Level 25 Anion Gap 15 Blood Urea Nitrogen 16 Creatinine 0.66 Glucose Level 112 Calcium Level 10.5 H Medications Medications Current Medications Ondansetron HCl (Zofran Inj) 4 mg Q6H PRN IV NAUSEA AND/OR VOMITING; Start 01/13 at 15:30 Acetaminophen (Tylenol Tab) 650 mg Q6H PRN PO PAIN LEVEL 1-3 OR FEVER; Start at 15:30 Acetaminophen/ Hydrocodone Bitart ([place] (5/325)) 1 tab Q6H PRN PO MODERATE PAIN LEVEL 4-6; Start 01/13/17 at 15:30 Docusate Sodium (Colace) 100 mg Q12H PRN PO CONSTIPATION; Start 01/13/17 at 15: 30 Magnesium Hydroxide (Milk Of Mag) 30 ml DAILY PRN PO CONSTIPATION; Start at 15:30 Sodium Biphosphate/ Sodium Phosphate (Fleet Enema) 133 ml DAILY PRN [place] CONSTIPATION; Start 01/13/17 at 15:30 Heparin Sodium (Porcine) (Heparin (5000 Units/0.5 ml)) 5,000 unit Q12 SC Last administered on 01/18/17t 10:00; Admin Dose 5,000 UNIT; Start 01/13/17 at 21:00 Lorazepam (Ativan) 0.5 mg Q6H PRN IV ANXIETY Last administered on 01/18/17 02: 48; Admin Dose 0.5 MG; Start 01/13/17 at 15:30 Nitroglycerin (Nitroglycerin (Sl Tab) 0.4 Mg) 1 tab Q5M PRN SL ANGINA; Start at 15:30 Cholecalciferol (Vitamin D) 5,000 unit DAILY PO Last administered on 01/18/17 09:56; Admin Dose 5,000 UNIT; Start 01/14/17 at 09:00 Gabapentin (Neurontin) 300 mg TID PO Last administered on 01/18/17 12:31; Admin Dose 300 MG; Start 01/13/17 at 21:00 Venlafaxine HCl (Effexor Xr) 225 mg QAM PO Last administered on 01/18/17 09:56 ; Admin Dose 225 MG; Start 01/14/17 at 09:00 Lactobacillus Acidophilus (Florajen3 Capsule) 1 each BID PO Last administered on 01/17/17 21:00; Admin Dose 1 EACH; Start 01/13/17 at 21:00 Famotidine (Pepcid) 20 mg DAILY PO Last administered on 01/18/17 09:56; Admin Dose 20 MG; Start 01/13/17 at 15:30 Acetaminophen/ Hydrocodone Bitart ([place] (10/325)) 1 tab Q4H PRN PO PAIN Last administered on 01/18/17 09:55; Admin Dose 1 TAB; Start 01/13/17 at 21:30 Ranolazine (Ranexa) 500 mg Q12 PO Last administered on 01/18/17 09:57; Admin Dose 500 MG; Start 01/16/17 at 10:00 Methylprednisolone Sodium Succinate 60 mg 60 mg Q6 IV Last administered on 01/18 12:31; Admin Dose 60 MG; Start 01/17/17 at 14:30 Levofloxacin/ Dextrose (Levaquin 750 Mg/ D5W 150 ml (Pmx)) 150 ml @ 100 mls/hr Q24H IVPB Last administered on 01/17/17 16:17; Admin Dose 100 MLS/HR; Start at 16:00 Phenol (Cepastat Lozenge) 1 lozenge Q1H PRN [place] COUGH; Start 01/17/17 at 15:00 Nicotine (Nicoderm 21 Mg/ 24hr) 1 patch DAILY TRANSDERM ; Start 01/18/17 at 14: 30; Status UNV Oxycodone/ Acetaminophen (Percocet (5/ 325)) 1 tab Q4H PRN PO PAIN; Start 01/18 at 14:30; Status UNV Guaifenesin (Robitussin Liquid Cup) 200 mg Q4H PRN PO COUGH; Start 01/18/17 at 14:30; Status UNV MARYCARMEN ARCEO January 18, 2017 14:09
[2017-01-18] MEDS ORDERED: GUAIFENESIN 20 MG/ML 5ML CUP PO PRN (14:30)
[2017-01-18] MEDS: OXYCODONE/ACETAMINOPHEN (5/325) TAB PO PRN ×2 (15:36→21:09)
[2017-01-18] MEDS: LEVOFLOXACIN 750MG/D5W (PMX) 150 ML IVPB SCH (15:39)
[2017-01-18] MEDS: NICOTINE (21 MG/24 HR) PATCH TRANSDERM SCH (18:04)
[2017-01-19] VITALS (13 sets, daily range): BP systolic 119–148; BP diastolic 60–83; PULSE 62–73; RESP 17–21
[2017-01-19] MEDS: METHYLPREDNISOLONE 125 MG INJ IV SCH ×4 (01:30→17:30)
[2017-01-19] MEDS: LEVOTHYROXINE 25 MCG TAB PO SCH (06:11)
[2017-01-19] MEDS: OXYCODONE/ACETAMINOPHEN (5/325) TAB PO PRN ×4 (06:18→21:40)
[2017-01-19 07:37] LABS: ADD SCAN DIFF NO
[2017-01-19 07:38] LABS: BASOPHILS % 0.1 % (0.0-2.0); HEMOGLOBIN 13.4 g/dl (12.0-16.0); LYMPHOCYTES # 1.1 10^3/ul (0.8-2.9); MEAN CORPUSCULAR HEMOGLOBIN 32.9 pg (29.0-33.0); MEAN CORPUSCULAR HGB CONC 33.5 g/dl (32.0-37.0); MEAN CORPUSCULAR VOLUME 98.3 fl (82.0-101.0); MONOCYTE # 0.6 10^3/ul (0.3-0.9); MONOCYTES % 2.7 % (0.0-11.0); NEUTROPHIL # 19.7 10^3/ul (1.6-7.5); NEUTROPHILS % 90.9 % (39.0-77.0); PLATELET COUNT 308 10^3/UL (140-415); RED BLOOD COUNT 4.07 10^6/ul (4.20-5.40); RED CELL DISTRIBUTION WIDTH 12.6 % (11.5-14.5); WHITE BLOOD COUNT 21.6 10^3/ul (4.8-10.8)
[2017-01-19 07:57] LABS: MAGNESIUM 1.9 mg/dl (1.7-2.5); PHOSPHORUS 4.9 mg/dl (2.5-4.9)
[2017-01-19] MEDS: ALBUTEROL/IPRATROPIUM (NEB) 3 ML AMP NEB SCH ×4 (08:18→19:51)
[2017-01-19] MEDS: FAMOTIDINE 20 MG TAB PO SCH (08:49)
[2017-01-19] MEDS: RANOLAZINE (SR) 500 MG TAB PO SCH ×2 (08:49→20:13)
[2017-01-19] MEDS: L ACIDOPHIL/B LACTIS/B LONGUM CAPSULE PO SCH ×2 (08:49→20:45)
[2017-01-19] MEDS: GABAPENTIN 300 MG CAP PO SCH ×3 (08:49→20:13)
[2017-01-19] MEDS: CHOLECALCIFEROL 1,000 UNIT TAB PO SCH (08:49)
[2017-01-19] MEDS: NICOTINE (21 MG/24 HR) PATCH TRANSDERM SCH (08:50)
[2017-01-19] MEDS: VENLAFAXINE (XR) 75 MG CAP PO SCH (08:50)
[2017-01-19] MEDS: HEPARIN 5,000 UNIT/0.5 ML VIAL SC SCH ×2 (09:02→20:16)
[2017-01-19 09:29] LABS: CALCIUM 10.3 mg/dl (8.4-10.2); CREATININE 0.75 mg/dl (0.44-1.00); POTASSIUM 4.4 mmol/L (3.5-5.1)
--- NOTE | 2017-01-19 14:42 | PN ---
Date/Time of Note Date/Time of Note DATE: 01/19/17 TIME: 14:40 Assessment/Plan VTE Prophylaxis VTE Prophylaxis Intervention: heparin Lines/Catheters IV [facility]from [facility] Saline Lock Urinary Cath still in place: No Assessment/Plan Chief Complaint/Hosp Course ASSESSMENT AND PLAN: 51-year-old female with chest pain symptoms x2 days, rule out acute coronary syndrome. 1. Chest pain - trop is neg x 3. IMPRESSION: Repeat CT coronary showed: Right Coronary Artery: Minimal noncalcified plaque present in the mid segment of the vessel without any significant stenosis, better visualized on the current examination. Left Main Coronary Artery: Widely patent, unchanged. Left Anterior Descending Coronary Artery: Small mixed plaque present at the origin of the vessel does not produce any significant stenosis; better visualized on the current examination. Left Circumflex Coronary Artery: Small calcified plaque present at the origin of the vessel does not produce any significant stenosis, unchanged - f/u cardiology consult rec's. - continue morphine, oxygen, Ranexa, nitroglycerin and aspirin as well. 2. History of asthma - slowly improving the last 3-4 days w/ tx's - Again continue DuoNebs Q4Hrs, abx, IV steroids 3. History of depression, Ativan p.r.n. 4. Hypothyroidism. Continue to monitor for now. Continue Synthroid. 5. Gastrointestinal prophylaxis - H2 maggie. 6. Deep venous thrombosis prophylaxis, heparin subQ. 7. Smoking - cessation, nicotine patch 8. Dispo: likely in 24 hrs home - will need Rx and refills on asthma meds, advair, steroid taper, PO abx x 5 days, nicotine patch, cough meds. Problems: Subjective 24 Hr Interval Summary Free Text/Dictation Pt has less SOB, still + cough. Exam/Review of Systems Vital Signs Vitals Vital Signs Date Time Temp Pulse Resp B/P Pulse Ox O2 Delivery O2 Flow Rate FiO2 01/19/17 13:01 68 20 97 21 01/19/17 12:15 98.1 131/72 Intake and Output 01/18/17 01/18/17 01/19/17 15:00 23:00 07:00 Intake Total 1350 ml 400 ml Balance 1350 ml 400 ml Exam GENERAL: The patient is lying in bed, answering questions appropriately HEENT: Pupils equal, round, react to light. Extraocular muscles intact. NECK: Supple, no thyromegaly. LUNGS: less rhonchi B/L, less wheezes as well. CARDIOVASCULAR: S1, S2 heard. No rubs or gallops. ABDOMEN: Soft, nontender, nondistended. Normal bowel sounds. No rebound or guarding. MUSCULOSKELETAL: No lower extremity edema B/L NEUROLOGIC: No focal deficits. Results Result Diagram: 01/19/17 0707 01/19/17 0707 Results 24 hrs Laboratory Tests Test 01/19/17 07:07 White Blood Count 21.6 #H Red Blood Count 4.07 L Hemoglobin 13.4 Hematocrit 40.0 Mean Corpuscular Volume 98.3 Mean Corpuscular Hemoglobin 32.9 Mean Corpuscular Hemoglobin Concent 33.5 Red Cell Distribution Width 12.6 Platelet Count 308 Mean Platelet Volume 10.0 Neutrophils % 90.9 H Lymphocytes % 5.0 L Monocytes % 2.7 Eosinophils % 0.0 Basophils % 0.1 Nucleated Red Blood Cells % 0.0 Neutrophils # 19.7 H Lymphocytes # 1.1 Monocytes # 0.6 Eosinophils # 0.0 Basophils # 0.0 Nucleated Red Blood Cells # 0.0 Sodium Level 137 Potassium Level 4.4 Chloride Level 100 Carbon Dioxide Level 26 Anion Gap 15 Blood Urea Nitrogen 25 H Creatinine 0.75 Glucose Level 107 Calcium Level 10.3 H Phosphorus Level 4.9 Magnesium Level 1.9 Medications Medications Current Medications Ondansetron HCl (Zofran Inj) 4 mg Q6H PRN IV NAUSEA AND/OR VOMITING; Start 01/13 at 15:30 Acetaminophen (Tylenol Tab) 650 mg Q6H PRN PO PAIN LEVEL 1-3 OR FEVER; Start at 15:30 Acetaminophen/ Hydrocodone Bitart ([place] (5/325)) 1 tab Q6H PRN PO MODERATE PAIN LEVEL 4-6; Start 01/13/17 at 15:30 Docusate Sodium (Colace) 100 mg Q12H PRN PO CONSTIPATION; Start 01/13/17 at 15: 30 Magnesium Hydroxide (Milk Of Mag) 30 ml DAILY PRN PO CONSTIPATION; Start at 15:30 Sodium Biphosphate/ Sodium Phosphate (Fleet Enema) 133 ml DAILY PRN [place] CONSTIPATION; Start 01/13/17 at 15:30 Heparin Sodium (Porcine) (Heparin (5000 Units/0.5 ml)) 5,000 unit Q12 SC Last administered on 01/19/17 09:02; Admin Dose 5,000 UNIT; Start 01/13/17 at 21:00 Lorazepam (Ativan) 0.5 mg Q6H PRN IV ANXIETY Last administered on 01/18/17 02: 48; Admin Dose 0.5 MG; Start 01/13/17 at 15:30 Nitroglycerin (Nitroglycerin (Sl Tab) 0.4 Mg) 1 tab Q5M PRN SL ANGINA; Start at 15:30 Cholecalciferol (Vitamin D) 5,000 unit DAILY PO Last administered on 01/19/17 08:49; Admin Dose 5,000 UNIT; Start 01/14/17 at 09:00 Gabapentin (Neurontin) 300 mg TID PO Last administered on 01/19/17 12:07; Admin Dose 300 MG; Start 01/13/17 at 21:00 Venlafaxine HCl (Effexor Xr) 225 mg QAM PO Last administered on 01/19/17 08:50 ; Admin Dose 225 MG; Start 01/14/17 at 09:00 Lactobacillus Acidophilus (Florajen3 Capsule) 1 each BID PO Last administered on 01/19/17 08:49; Admin Dose 1 EACH; Start 01/13/17 at 21:00 Famotidine (Pepcid) 20 mg DAILY PO Last administered on 01/19/17 08:49; Admin Dose 20 MG; Start 01/13/17 at 15:30 Acetaminophen/ Hydrocodone Bitart ([place] (10/325)) 1 tab Q4H PRN PO PAIN Last administered on 01/18/17 09:55; Admin Dose 1 TAB; Start 01/13/17 at 21:30 Ranolazine 500 mg 500 mg Q12 PO Last administered on 01/19/17 08:49; Admin Dose 500 MG; Start 01/16/17 at 10:00 Levofloxacin/ Dextrose (Levaquin 750 Mg/ D5W 150 ml (Pmx)) 150 ml @ 100 mls/hr Q24H IVPB Last administered on 01/18/17 15:39; Admin Dose 100 MLS/HR; Start at 16:00 Phenol (Cepastat Lozenge) 1 lozenge Q1H PRN [place] COUGH; Start 01/17/17 at 15:00 Nicotine (Nicoderm 21 Mg/ 24hr) 1 patch DAILY TRANSDERM Last administered on 08:50; Admin Dose 1 PATCH; Start 01/18/17 at 16:00 Oxycodone/ Acetaminophen (Percocet (5/ 325)) 1 tab Q4H PRN PO PAIN Last administered on 01/19/17 10:13; Admin Dose 1 TAB; Start 01/18/17 at 14:30 Guaifenesin (Robitussin Liquid Cup) 200 mg Q4H PRN PO COUGH; Start 01/18/17 at 14:30 Methylprednisolone Sodium Succinate (Solu-Medrol) 80 mg Q6 IV Last administered on 01/19/17 12:07; Admin Dose 80 MG; Start 01/18/17 at 18:00 MARYCARMEN ARCEO January 19, 2017 14:42
[2017-01-19] MEDS: LEVOFLOXACIN 750MG/D5W (PMX) 150 ML IVPB SCH (15:45)
[2017-01-19] MEDS: SALMETEROL/FLUTICASONE 250/50 INHA INH SCH ×2 (17:30→20:13)
[2017-01-19] MEDS: DOCUSATE SODIUM 100 MG CAP PO PRN (17:50)
[2017-01-19] MEDS: HYDROCODONE/APAP (5/325) TAB PO PRN (17:50)
[2017-01-20] VITALS (11 sets, daily range): BP systolic 100–144; BP diastolic 50–72; PULSE 65–76; RESP 19–20
[2017-01-20] MEDS: METHYLPREDNISOLONE 125 MG INJ IV SCH ×3 (00:09→12:57)
[2017-01-20] MEDS: OXYCODONE/ACETAMINOPHEN (5/325) TAB PO PRN ×4 (04:13→21:32)
[2017-01-20] MEDS: DOCUSATE SODIUM 100 MG CAP PO PRN (06:16)
[2017-01-20] MEDS: LEVOTHYROXINE 25 MCG TAB PO SCH (06:22)
[2017-01-20 08:19] LABS: ADD SCAN DIFF NO
[2017-01-20] MEDS: ALBUTEROL/IPRATROPIUM (NEB) 3 ML AMP NEB SCH ×4 (08:24→21:04)
[2017-01-20 08:27] LABS: HEMATOCRIT 35.8 % (37.0-47.0); HEMOGLOBIN 12.1 g/dl (12.0-16.0); LYMPHOCYTES # 0.9 10^3/ul (0.8-2.9); LYMPHOCYTES % 4.2 % (15.0-51.0); MEAN CORPUSCULAR HEMOGLOBIN 32.8 pg (29.0-33.0); MEAN CORPUSCULAR HGB CONC 33.8 g/dl (32.0-37.0); MEAN PLATELET VOLUME 10.1 fl (7.4-10.4); MONOCYTES % 4.9 % (0.0-11.0); NEUTROPHIL # 18.1 10^3/ul (1.6-7.5); NEUTROPHILS % 89.6 % (39.0-77.0); PLATELET COUNT 270 10^3/UL (140-415); RED BLOOD COUNT 3.69 10^6/ul (4.20-5.40); RED CELL DISTRIBUTION WIDTH 12.6 % (11.5-14.5); WHITE BLOOD COUNT 20.2 10^3/ul (4.8-10.8)
[2017-01-20 08:48] LABS: CALCIUM 9.6 mg/dl (8.4-10.2); CREATININE 0.79 mg/dl (0.44-1.00); POTASSIUM 4.5 mmol/L (3.5-5.1)
[2017-01-20] MEDS: SALMETEROL/FLUTICASONE 250/50 INHA INH SCH ×2 (09:19→21:32)
[2017-01-20] MEDS: VENLAFAXINE (XR) 75 MG CAP PO SCH (09:21)
[2017-01-20] MEDS: GABAPENTIN 300 MG CAP PO SCH ×3 (09:22→21:18)
[2017-01-20] MEDS: RANOLAZINE (SR) 500 MG TAB PO SCH ×2 (09:22→21:32)
[2017-01-20] MEDS: L ACIDOPHIL/B LACTIS/B LONGUM CAPSULE PO SCH ×2 (09:24→21:32)
[2017-01-20] MEDS: CHOLECALCIFEROL 1,000 UNIT TAB PO SCH (09:24)
[2017-01-20] MEDS: FAMOTIDINE 20 MG TAB PO SCH (09:24)
[2017-01-20] MEDS: HEPARIN 5,000 UNIT/0.5 ML VIAL SC SCH ×2 (09:36→21:31)
[2017-01-20] MEDS: HYDROCODONE/APAP (5/325) TAB PO PRN (09:43)
[2017-01-20] MEDS: NICOTINE (21 MG/24 HR) PATCH TRANSDERM SCH (12:56)
[2017-01-20] MEDS: LEVOFLOXACIN 750MG/D5W (PMX) 150 ML IVPB SCH (16:04)
--- NOTE | 2017-01-20 17:06 | PN ---
DATE: 01/20/2017 TIME OF EVALUATION: 1600 SUBJECTIVE DATA: Respiratory status improved. Denies any chest pain. OBJECTIVE DATA: VITAL SIGNS: Temperature 97.5, pulse is 71, respiratory rate 20, blood pressure 100/50, oxygen saturation 96% on room air. GENERAL: This is a well-built, well-nourished female patient lying in bed in no apparent distress. HEENT: Head normocephalic and atraumatic. Eyes: Anicteric sclerae. Conjunctivae clear. ENT: Nasal septum is midline. Oral mucosa is moist. NECK: Supple. No JVD noticed. RESPIRATORY: Bilaterally clear to auscultation. No adventitious breath sounds heard. No use of accessory muscles of respiration. CARDIAC: Regular rate and rhythm. No murmurs. ABDOMEN: Soft, nontender and nondistended. Bowel sounds positive in all 4 quadrants. GENITOURINARY: Deferred. EXTREMITIES: No cyanosis, no clubbing, no edema. Peripheral pulses palpable. NEUROLOGIC: The patient is awake, alert and oriented. Cranial nerves are grossly intact. LABORATORY AND DIAGNOSTIC DATA: WBC 28.2, hemoglobin 12.1, hematocrit 37.8, platelet count of 270. Sodium 136, potassium 4.5, chloride 104, carbon dioxide 25, anion gap 12, BUN 33, creatinine 0.79, glucose 136, calcium 9.6, phosphorus 4.8, magnesium 1.9. ASSESSMENT AND PLAN: 1. Chest pain. Acute coronary syndrome ruled out. Cardiac CT negative. The patient on Ranexa which will be continued. 2. Chronic obstructive pulmonary disease exacerbation. Continue inhaled bronchodilators. Continue tapering dose of steroids. 3. Nicotine use. The patient will be continued on a nicotine patch. 4. Hypothyroidism. Continue Synthroid. 5. Depression. Continue Effexor. 6. Deep venous thrombosis prophylaxis, subcutaneous heparin. 7. Gastrointestinal prophylaxis. Histamine 2 receptor blockers. PLAN: Taper down steroids. We will transfer the patient to medical/surgical floor. The case was discussed with Dr. Barboza. SATNAM BARBOZA MD, AM/DANIELLE Conf#: [id number] DID#: [id number] MTDD
[2017-01-20] MEDS: METHYLPREDNISOLONE 40 MG INJ IV SCH ×2 (17:41→23:43)
--- NOTE | 2017-01-20 21:36 | PN ---
DATE: 01/20/2017 SUBJECTIVE: The patient had mild episode of chest pain last night, has resolved now. Chest pain is much better with Percocet now. Breathing has improved. MEDICATIONS: Reviewed. PHYSICAL EXAMINATION: VITAL SIGNS: Temperature 97.5, heart rate of 71, blood pressure 100/50, respiratory rate of 20, sat urating 96%. HEENT: Normocephalic, atraumatic. Pupils are equal. CARDIOVASCULAR: Regular rate and rhythm. PULMONARY: Mild wheezes on the right side. GASTROINTESTINAL: Soft, nontender. EXTREMITIES: No pedal edema. NEUROLOGIC: Awake and alert. PSYCHIATRIC: Appeared to be calm. LABORATORY: WBC of 20.2, hemoglobin 12.1, platelets of 270. Sodium 136, potassium 4.5, BUN of 35, creatinine 0.79, glucose of 137. ASSESSMENT AND PLAN: 1. Chest pain, repeated but negative ischemic workup with negative stress test done within the past year as well as CT coronary angiogram not showing any significant obstructive coronary artery disea se. 2. Severe asthma/chronic obstructive pulmonary disease. 3. Abnormal electrocardiogram. 4. Hypertension, currently controlled. 5. Sinus bradycardia, appeared to be stable now. 6. Electrolyte abnormality. Hypokalemia has been corrected. RECOMMENDATIONS: Will continue with the current cardiac care. Respiratory care is being managed as per Internal Medicine. Dictated By: LORE JOHNSON/DANIELLE Conf#: [id number] DID#: [id number] CC: SATNAM SANTOS CATERING COORDINATOR;*End*
[2017-01-20] MEDS: LORAZEPAM 2 MG INJ IV PRN (23:43)
[2017-01-21 06:10] LABS: MAGNESIUM 2.2 mg/dl (1.7-2.5); PHOSPHORUS 4.3 mg/dl (2.5-4.9)
[2017-01-21] MEDS: METHYLPREDNISOLONE 40 MG INJ IV SCH ×3 (06:11→17:07)
[2017-01-21 06:26] LABS: ADD SCAN DIFF NO
[2017-01-21 06:34] LABS: BASOPHILS % 0.1 % (0.0-2.0); HEMATOCRIT 37.7 % (37.0-47.0); HEMOGLOBIN 12.5 g/dl (12.0-16.0); LYMPHOCYTES % 5.7 % (15.0-51.0); MEAN CORPUSCULAR HGB CONC 33.2 g/dl (32.0-37.0); MEAN CORPUSCULAR VOLUME 99.5 fl (82.0-101.0); MEAN PLATELET VOLUME 10.3 fl (7.4-10.4); MONOCYTE # 0.8 10^3/ul (0.3-0.9); MONOCYTES % 4.5 % (0.0-11.0); NEUTROPHIL # 15.3 10^3/ul (1.6-7.5); NEUTROPHILS % 88.1 % (39.0-77.0); PLATELET COUNT 259 10^3/UL (140-415); RED BLOOD COUNT 3.79 10^6/ul (4.20-5.40); RED CELL DISTRIBUTION WIDTH 12.9 % (11.5-14.5); WHITE BLOOD COUNT 17.4 10^3/ul (4.8-10.8)
[2017-01-21] MEDS: OXYCODONE/ACETAMINOPHEN (5/325) TAB PO PRN ×3 (07:00→22:52)
[2017-01-21] MEDS: DOCUSATE SODIUM 100 MG CAP PO PRN ×2 (07:00→22:53)
--- NOTE | 2017-01-21 07:12 | PN ---
DATE: 01/17/2017 SUBJECTIVE: The patient in sinus rhythm. Chest pain has improved. However, she continues to be co ughing with shortness of breath and wheezing. MEDICATIONS: Reviewed. OBJECTIVE: VITAL SIGNS: Temperature 98, heart rate of 72, blood pressure 101/57, respirations 18, saturating 9 7%. HEENT: Normocephalic, atraumatic. Pupils are equal. CARDIOVASCULAR: Regular rate and rhythm. PULMONARY: Diffuse wheezes and rhonchi. GASTROINTESTINAL: Soft, nontender. EXTREMITIES: No significant edema. NEUROLOGIC: Awake, alert, oriented x3. PSYCHIATRIC: Calm, pleasant. LABORATORY: WBC of 11.2, hemoglobin 12.2, platelets 233. Sodium 143, potassium is 2.9, BUN of 19, creatinine 0.7, glucose of 77. CT coronary angiogram done shows no significant was seen. ASSESSMENT AND PLAN: 1. Chest pain, appeared to be nonanginal. 2. Abnormal EKG. 3. Asthma, COPD. 4. Hypertension. 5. Bradycardia. 6. Electrolyte abnormalities and hypokalemia. RECOMMENDATIONS: Electrolytes are being managed as per internal medicine. Pulmonary care as per in ternal medicine. Steroids have been started. I will continue with the Ranexa since it appears to b e helping her clinically. Otherwise, no further cardiac workup would be indicated. Okay to discont inue the telemetry from cardiac standpoint. We will follow up p.r.n. Dictated By: LORE SOLIZ MD AV/DANIELLE Conf#: [id number] DID#: [id number] CC: MARYCARMEN ARCEO;*End*
[2017-01-21 07:28] VITALS: BP 118/56; RESP 20
[2017-01-21] MEDS: ALBUTEROL/IPRATROPIUM (NEB) 3 ML AMP NEB SCH ×4 (07:46→20:45)
[2017-01-21 07:58] LABS: POTASSIUM 4.4 mmol/L (3.5-5.1)
[2017-01-21 08:01] LABS: CREATININE 0.75 mg/dl (0.44-1.00)
[2017-01-21 08:02] LABS: CALCIUM 9.4 mg/dl (8.4-10.2)
[2017-01-21] MEDS: SALMETEROL/FLUTICASONE 250/50 INHA INH SCH ×2 (08:57→20:56)
[2017-01-21] MEDS: HEPARIN 5,000 UNIT/0.5 ML VIAL SC SCH ×2 (08:58→20:57)
[2017-01-21] MEDS: CHOLECALCIFEROL 1,000 UNIT TAB PO SCH (08:59)
[2017-01-21] MEDS: L ACIDOPHIL/B LACTIS/B LONGUM CAPSULE PO SCH ×2 (08:59→20:56)
[2017-01-21] MEDS: VENLAFAXINE (XR) 75 MG CAP PO SCH (09:00)
[2017-01-21] MEDS: HYDROCODONE/APAP (10/325) TAB PO PRN ×2 (09:00→17:12)
[2017-01-21] MEDS: RANOLAZINE (SR) 500 MG TAB PO SCH ×2 (09:00→20:56)
[2017-01-21] MEDS: LEVOTHYROXINE 25 MCG TAB PO SCH (09:00)
[2017-01-21] MEDS: FAMOTIDINE 20 MG TAB PO SCH (09:00)
[2017-01-21] MEDS: GABAPENTIN 300 MG CAP PO SCH ×3 (09:00→20:56)
[2017-01-21] MEDS: NICOTINE (21 MG/24 HR) PATCH TRANSDERM SCH (09:07)
--- NOTE | 2017-01-21 15:12 | PN ---
Date/Time of Note Date/Time of Note DATE: 01/21/17 TIME: 15:06 Assessment/Plan VTE Prophylaxis VTE Prophylaxis Intervention: heparin Lines/Catheters IV [facility]ter Type (from [email or web address] Saline Lock Urinary Cath still in place: No Assessment/Plan Assessment/Plan 1. Chest pain. Acute coronary syndrome ruled out. Cardiac CT negative, resolved 2. Chronic obstructive pulmonary disease exacerbation. Continue inhaled bronchodilators. Continue tapering dose of steroids. 3. Nicotine use. The patient will be continued on a nicotine patch. 4. Hypothyroidism. Continue Synthroid. 5. Depression. Continue Effexor. 6. Deep venous thrombosis prophylaxis, subcutaneous heparin. Subjective 24 Hr Interval Summary Free Text/Dictation no chest pain. some cough but significantly improved on shortness of breath Exam/Review of Systems Vital Signs Vitals Vital Signs Date Time Temp Pulse Resp B/P Pulse Ox O2 Delivery O2 Flow Rate FiO2 01/21/17 12:53 75 16 97 21 01/21/17 07:28 97.4 118/56 01/20/17 04:00 Room Air Intake and Output 01/20/17 01/20/17 01/21/17 15:00 23:00 07:00 Intake Total 1150 ml 360 ml Balance 1150 ml 360 ml Exam Constitutional: alert, oriented, well developed Psych: nl mood/affect, no complaints Head: atraumatic, normocephalic Eyes: EOMI, nl conjunctiva, nl lids ENMT: nl external ears & nose, nl lips & teeth, nl nasal mucosa & septum Neck: non-tender, supple Respiratory: clear to auscultation, normal air movement, No congested cough, No crackles/rales, No diminished breath sounds, No intercostal retraction, No labored breathing, No other, No respirations, No tactile fremitus, No wheezing Cardiovascular: nl pulses, regular rate and rhythm, No S3, No S4, No bruits, No diastolic murmur, No edema, No gallop, No irregular rhythm, No jugular venous distention (JVD), No murmurs/extra sounds, No other, No rub, No systolic murmur Gastrointestinal: nl liver, spleen, non-tender, soft, No ascites, No bowel sounds, No distended, No firm, No hepatomegaly, No mass , No other, No rebound or guarding, No splenomegaly, No surgical scars, No tender Musculoskeletal: nl extremities to inspection Extremities: normal pulses, No calf tenderness, No clubbing, No cyanosis, No edema, No other, No palpable cord, No pitting pedal edema, No tenderness Neurological: MEDICAID BUSINESS ANALYST II-XII intact, nl mental status, nl speech, nl strength Skin: nl turgor Lymph: nl lymph nodes Results Result Diagram: 01/21/17 0448 01/21/17 0448 Results 24 hrs Laboratory Tests Test 01/21/17 04:48 01/21/17 04:58 White Blood Count 17.4 H Red Blood Count 3.79 L Hemoglobin 12.5 Hematocrit 37.7 Mean Corpuscular Volume 99.5 Mean Corpuscular Hemoglobin 33.0 Mean Corpuscular Hemoglobin Concent 33.2 Red Cell Distribution Width 12.9 Platelet Count 259 Mean Platelet Volume 10.3 Neutrophils % 88.1 H Lymphocytes % 5.7 L Monocytes % 4.5 Eosinophils % 0.0 Basophils % 0.1 Nucleated Red Blood Cells % 0.0 Neutrophils # 15.3 H Lymphocytes # 1.0 Monocytes # 0.8 Eosinophils # 0.0 Basophils # 0.0 Nucleated Red Blood Cells # 0.0 Sodium Level 141 Potassium Level 4.4 Chloride Level 101 Carbon Dioxide Level 26 Anion Gap 18 H Blood Urea Nitrogen 30 H Creatinine 0.75 Glucose Level 126 Calcium Level 9.4 Phosphorus Level 4.3 Magnesium Level 2.2 Medications Medications Current Medications Ondansetron HCl (Zofran Inj) 4 mg Q6H PRN IV NAUSEA AND/OR VOMITING; Start 01/13 at 15:30 Acetaminophen (Tylenol Tab) 650 mg Q6H PRN PO PAIN LEVEL 1-3 OR FEVER; Start at 15:30 Acetaminophen/ Hydrocodone Bitart ([place] (5/325)) 1 tab Q6H PRN PO MODERATE PAIN LEVEL 4-6 Last administered on 01/20/17 09:43; Admin Dose 1 TAB; Start 01/13/17 at 15:30 Docusate Sodium (Colace) 100 mg Q12H PRN PO CONSTIPATION Last administered on 07:00; Admin Dose 100 MG; Start 01/13/17 at 15:30 Magnesium Hydroxide (Milk Of Mag) 30 ml DAILY PRN PO CONSTIPATION; Start at 15:30 Sodium Biphosphate/ Sodium Phosphate (Fleet Enema) 133 ml DAILY PRN [place] CONSTIPATION; Start 01/13/17 at 15:30 Heparin Sodium (Porcine) (Heparin (5000 Units/0.5 ml)) 5,000 unit Q12 SC Last administered on 01/21/17 08:58; Admin Dose 5,000 UNIT; Start 01/13/17 at 21:00 Lorazepam (Ativan) 0.5 mg Q6H PRN IV ANXIETY Last administered on 01/20/17 23: 43; Admin Dose 0.5 MG; Start 01/13/17 at 15:30 Nitroglycerin (Nitroglycerin (Sl Tab) 0.4 Mg) 1 tab Q5M PRN SL ANGINA Last administered on 01/19/17 22:25; Admin Dose 1 TAB; Start 01/13/17 at 15:30 Cholecalciferol (Vitamin D) 5,000 unit DAILY PO Last administered on 01/21/17 08:59; Admin Dose 5,000 UNIT; Start 01/14/17 at 09:00 Gabapentin (Neurontin) 300 mg TID PO Last administered on 01/21/17 12:10; Admin Dose 300 MG; Start 01/13/17 at 21:00 Venlafaxine HCl (Effexor Xr) 225 mg QAM PO Last administered on 01/21/17 09:00 ; Admin Dose 225 MG; Start 01/14/17 at 09:00 Lactobacillus Acidophilus (Florajen3 Capsule) 1 each BID PO Last administered on 01/21/17 08:59; Admin Dose 1 EACH; Start 01/13/17 at 21:00 Famotidine (Pepcid) 20 mg DAILY PO Last administered on 01/21/17 09:00; Admin Dose 20 MG; Start 01/13/17 at 15:30 Acetaminophen/ Hydrocodone Bitart ([place] (10)) 1 tab Q4H PRN PO PAIN Last administered on 01/21/17 09:00; Admin Dose 1 TAB; Start 01/13/17 at 21:30 Ranolazine 500 mg 500 mg Q12 PO Last administered on 01/21/17 09:00; Admin Dose 500 MG; Start 01/16/17 at 10:00 Levofloxacin/ Dextrose (Levaquin 750 Mg/ D5W 150 ml (Pmx)) 150 ml @ 100 mls/hr Q24H IVPB Last administered on 01/20/17 16:04; Admin Dose 100 MLS/HR; Start at 16:00 Phenol (Cepastat Lozenge) 1 lozenge Q1H PRN MT COUGH; Start 01/17/17 at 15:00 Nicotine (Nicoderm 21 Mg/ 24hr) 1 patch DAILY TRANSDERM Last administered on 09:07; Admin Dose 1 PATCH; Start 01/18/17 at 16:00 Oxycodone/ Acetaminophen (Percocet (5/ 325)) 1 tab Q4H PRN PO PAIN Last administered on 01/21/17 07:00; Admin Dose 1 TAB; Start 01/18/17 at 14:30 Guaifenesin (Robitussin Liquid Cup) 200 mg Q4H PRN PO COUGH; Start 01/18/17 at 14:30 Salmeterol Xinafoate/ Fluticasone (Advair 250/50 Diskus) 1 inh BID INH Last administered on 01/21/17 08:57; Admin Dose 1 INH; Start 01/19/17 at 15:00 Methylprednisolone Sodium Succinate (Solu-Medrol) 40 mg Q6 IV Last administered on 01/21/17 12:10; Admin Dose 40 MG; Start 01/20/17 at 18:00 MAXWELL ELLINGTON MD January 21, 2017 15:12
[2017-01-21] MEDS: LEVOFLOXACIN 750MG/D5W (PMX) 150 ML IVPB SCH (15:15)
[2017-01-21 20:06] VITALS: BP 127/66; RESP 18
[2017-01-22] MEDS: METHYLPREDNISOLONE 40 MG INJ IV SCH ×4 (00:15→23:38)
[2017-01-22] MEDS: LORAZEPAM 2 MG INJ IV PRN ×2 (00:15→23:38)
[2017-01-22] MEDS: MAGNESIUM HYDROXIDE 30ML CUP PO PRN (05:27)
[2017-01-22] MEDS: OXYCODONE/ACETAMINOPHEN (5/325) TAB PO PRN ×3 (05:28→17:58)
[2017-01-22 05:52] LABS: ADD SCAN DIFF NO
[2017-01-22 06:02] LABS: BASOPHILS % 0.1 % (0.0-2.0); LYMPHOCYTES # 1.1 10^3/ul (0.8-2.9); LYMPHOCYTES % 6.7 % (15.0-51.0); MEAN CORPUSCULAR HEMOGLOBIN 33.1 pg (29.0-33.0); MEAN CORPUSCULAR HGB CONC 34.3 g/dl (32.0-37.0); MEAN CORPUSCULAR VOLUME 96.7 fl (82.0-101.0); MEAN PLATELET VOLUME 10.2 fl (7.4-10.4); MONOCYTE # 1.1 10^3/ul (0.3-0.9); MONOCYTES % 6.9 % (0.0-11.0); NEUTROPHIL # 13.3 10^3/ul (1.6-7.5); NEUTROPHILS % 83.6 % (39.0-77.0); PLATELET COUNT 267 10^3/UL (140-415); RED BLOOD COUNT 3.62 10^6/ul (4.20-5.40); RED CELL DISTRIBUTION WIDTH 12.4 % (11.5-14.5); WHITE BLOOD COUNT 15.9 10^3/ul (4.8-10.8)
[2017-01-22 06:17] LABS: POTASSIUM 3.9 mmol/L (3.5-5.1)
[2017-01-22 06:19] LABS: CREATININE 0.71 mg/dl (0.44-1.00)
[2017-01-22 06:21] LABS: CALCIUM 9.2 mg/dl (8.4-10.2)
[2017-01-22] MEDS: LEVOTHYROXINE 25 MCG TAB PO SCH (07:34)
[2017-01-22 08:01] VITALS: BP 120/66; RESP 20
[2017-01-22] MEDS: ALBUTEROL/IPRATROPIUM (NEB) 3 ML AMP NEB SCH ×4 (08:22→20:07)
[2017-01-22] MEDS: SALMETEROL/FLUTICASONE 250/50 INHA INH SCH ×2 (08:34→20:55)
[2017-01-22] MEDS: VENLAFAXINE (XR) 75 MG CAP PO SCH (08:36)
[2017-01-22] MEDS: RANOLAZINE (SR) 500 MG TAB PO SCH ×2 (08:36→20:55)
[2017-01-22] MEDS: FAMOTIDINE 20 MG TAB PO SCH (08:36)
[2017-01-22] MEDS: GABAPENTIN 300 MG CAP PO SCH ×3 (08:36→20:55)
[2017-01-22] MEDS: CHOLECALCIFEROL 1,000 UNIT TAB PO SCH (08:36)
[2017-01-22] MEDS: HYDROCODONE/APAP (10/325) TAB PO PRN ×2 (08:37→20:55)
[2017-01-22] MEDS: NICOTINE (21 MG/24 HR) PATCH TRANSDERM SCH (08:38)
[2017-01-22] MEDS: HEPARIN 5,000 UNIT/0.5 ML VIAL SC SCH ×2 (08:40→20:58)
[2017-01-22] MEDS: L ACIDOPHIL/B LACTIS/B LONGUM CAPSULE PO SCH ×2 (09:21→20:55)
--- NOTE | 2017-01-22 14:56 | PN ---
Date/Time of Note Date/Time of Note DATE: 01/22/17 TIME: 14:54 Assessment/Plan VTE Prophylaxis VTE Prophylaxis Intervention: heparin Lines/Catheters IV C[facility]ter Type (from [facility]): Saline Lock Urinary Cath still in place: No Assessment/Plan Assessment/Plan 1. Chronic obstructive pulmonary disease exacerbation. Continue inhaled bronchodilators. Continue tapering dose of steroids. 2. Chest pain. Acute coronary syndrome ruled out. Cardiac CT negative, resolved 3. Nicotine use. The patient will be continued on a nicotine patch. 4. Hypothyroidism. Continue Synthroid. 5. Depression. Continue Effexor. 6. Deep venous thrombosis prophylaxis, subcutaneous heparin. Subjective 24 Hr Interval Summary Free Text/Dictation some shortness of breath and wheezing Exam/Review of Systems Vital Signs Vitals Vital Signs Date Time Temp Pulse Resp B/P Pulse Ox O2 Delivery O2 Flow Rate FiO2 01/22/17 08:22 67 18 100 21 01/22/17 08:01 97.1 120/66 01/20/17 04:00 Room Air Intake and Output 01/21/17 01/21/17 01/22/17 15:00 23:00 07:00 Intake Total 1590 ml 650 ml Balance 1590 ml 650 ml Exam Constitutional: alert, oriented, well developed Psych: nl mood/affect, no complaints Head: atraumatic, normocephalic Eyes: EOMI, nl conjunctiva, nl lids ENMT: nl external ears & nose, nl lips & teeth, nl nasal mucosa & septum Neck: non-tender, supple Respiratory: wheezing (scanty) Cardiovascular: nl pulses, regular rate and rhythm, No S3, No S4, No bruits, No diastolic murmur, No edema, No gallop, No irregular rhythm, No jugular venous distention (JVD), No murmurs/extra sounds, No other, No rub, No systolic murmur Gastrointestinal: nl liver, spleen, non-tender, soft, No ascites, No bowel sounds, No distended, No firm, No hepatomegaly, No mass , No other, No rebound or guarding, No splenomegaly, No surgical scars, No tender Musculoskeletal: nl extremities to inspection Extremities: normal pulses, No calf tenderness, No clubbing, No cyanosis, No edema, No other, No palpable cord, No pitting pedal edema, No tenderness Neurological: CRM SOLUTION ARCHITECT II-XII intact, nl mental status, nl speech, nl strength Skin: nl turgor Lymph: nl lymph nodes Results Result Diagram: 01/22/175 01/22/17454 Results 24 hrs Laboratory Tests Test 01/22/17 04:55 White Blood Count 15.9 H Red Blood Count 3.62 L Hemoglobin 12.0 Hematocrit 35.0 L Mean Corpuscular Volume 96.7 Mean Corpuscular Hemoglobin 33.1 H Mean Corpuscular Hemoglobin Concent 34.3 Red Cell Distribution Width 12.4 Platelet Count 267 Mean Platelet Volume 10.2 Neutrophils % 83.6 H Lymphocytes % 6.7 L Monocytes % 6.9 Eosinophils % 0.0 Basophils % 0.1 Nucleated Red Blood Cells % 0.0 Neutrophils # 13.3 H Lymphocytes # 1.1 Monocytes # 1.1 H Eosinophils # 0.0 Basophils # 0.0 Nucleated Red Blood Cells # 0.0 Sodium Level 140 Potassium Level 3.9 Chloride Level 102 Carbon Dioxide Level 27 Anion Gap 15 Blood Urea Nitrogen 31 H Creatinine 0.71 Glucose Level 120 Calcium Level 9.2 Medications Medications Current Medications Ondansetron HCl (Zofran Inj) 4 mg Q6H PRN IV NAUSEA AND/OR VOMITING; Start 01/13 at 15:30 Acetaminophen (Tylenol Tab) 650 mg Q6H PRN PO PAIN LEVEL 1-3 OR FEVER; Start at 15:30 Acetaminophen/ Hydrocodone Bitart ([place] (5/325)) 1 tab Q6H PRN PO MODERATE PAIN LEVEL 4-6 Last administered on 01/20/17 09:43; Admin Dose 1 TAB; Start 01/13/17 at 15:30 Docusate Sodium (Colace) 100 mg Q12H PRN PO CONSTIPATION Last administered on 22:53; Admin Dose 100 MG; Start 01/13/17 at 15:30 Magnesium Hydroxide (Milk Of Mag) 30 ml DAILY PRN PO CONSTIPATION Last administered on 01/22/17 05:27; Admin Dose 30 ML; Start 01/13/17 at 15:30 Sodium Biphosphate/ Sodium Phosphate (Fleet Enema) 133 ml DAILY PRN [place] CONSTIPATION; Start 01/13/17 at 15:30 Heparin Sodium (Porcine) (Heparin (5000 Units/0.5 ml)) 5,000 unit Q12 SC Last administered on 01/22/17 08:40; Admin Dose 5,000 UNIT; Start 01/13/17 at 21:00 Lorazepam (Ativan) 0.5 mg Q6H PRN IV ANXIETY Last administered on 01/22/17 00: 15; Admin Dose 0.5 MG; Start 01/13/17 at 15:30 Nitroglycerin (Nitroglycerin (Sl Tab) 0.4 Mg) 1 tab Q5M PRN SL ANGINA Last administered on 01/19/17 22:25; Admin Dose 1 TAB; Start 01/13/17 at 15:30 Cholecalciferol (Vitamin D) 5,000 unit DAILY PO Last administered on 01/22/17 08:36; Admin Dose 5,000 UNIT; Start 01/14/17 at 09:00 Gabapentin (Neurontin) 300 mg TID PO Last administered on 01/22/17 13:06; Admin Dose 300 MG; Start 01/13/17 at 21:00 Venlafaxine HCl (Effexor Xr) 225 mg QAM PO Last administered on 01/22/17 08:36 ; Admin Dose 225 MG; Start 01/14/17 at 09:00 Lactobacillus Acidophilus (Florajen3 Capsule) 1 each BID PO Last administered on 01/22/17 09:21; Admin Dose 1 EACH; Start 01/13/17 at 21:00 Famotidine (Pepcid) 20 mg DAILY PO Last administered on 01/22/17 08:36; Admin Dose 20 MG; Start 01/13/17 at 15:30 Acetaminophen/ Hydrocodone Bitart ([place] (10/325)) 1 tab Q4H PRN PO PAIN Last administered on 01/22/17 08:37; Admin Dose 1 TAB; Start 01/13/17 at 21:30 Ranolazine (Ranexa) 500 mg Q12 PO Last administered on 01/22/17 08:36; Admin Dose 500 MG; Start 01/16/17 at 10:00 Phenol (Cepastat Lozenge) 1 lozenge Q1H PRN MT COUGH; Start 01/17/17 at 15:00 Nicotine (Nicoderm 21 Mg/ 24hr) 1 patch DAILY TRANSDERM Last administered on 08:38; Admin Dose 1 PATCH; Start 01/18/17 at 16:00 Oxycodone/ Acetaminophen (Percocet (5/ 325)) 1 tab Q4H PRN PO PAIN Last administered on 01/22/17 13:07; Admin Dose 1 TAB; Start 01/18/17 at 14:30 Guaifenesin (Robitussin Liquid Cup) 200 mg Q4H PRN PO COUGH; Start 01/18/17 at 14:30 Salmeterol Xinafoate/ Fluticasone (Advair 250/50 Diskus) 1 inh BID INH Last administered on 01/22/17 08:34; Admin Dose 1 INH; Start 01/19/17 at 15:00 Methylprednisolone Sodium Succinate (Solu-Medrol) 20 mg Q6 IV Last administered on 01/22/17 13:09; Admin Dose 20 MG; Start 01/21/17 at 18:00 Levofloxacin (Levaquin) 750 mg DAILY@06 PO ; Start 01/22/17 at 16:00 MAXWELL ELLINGTON MD January 22, 2017 14:56
[2017-01-22] MEDS: LEVOFLOXACIN 750 MG TABLET PO SCH (16:41)
[2017-01-22 19:35] VITALS: BP 107/57; RESP 20
[2017-01-22] MEDS: DOCUSATE SODIUM 100 MG CAP PO PRN (20:55)
[2017-01-23] MEDS: OXYCODONE/ACETAMINOPHEN (5/325) TAB PO PRN ×3 (01:36→13:20)
[2017-01-23] MEDS: MAGNESIUM HYDROXIDE 30ML CUP PO PRN (05:04)
[2017-01-23] MEDS: LEVOFLOXACIN 750 MG TABLET PO SCH (05:04)
[2017-01-23] MEDS: HYDROCODONE/APAP (10/325) TAB PO PRN (05:05)
[2017-01-23 05:50] LABS: ADD SCAN DIFF NO
[2017-01-23 05:53] LABS: BASOPHILS % 0.1 % (0.0-2.0); HEMATOCRIT 37.8 % (37.0-47.0); HEMOGLOBIN 12.8 g/dl (12.0-16.0); LYMPHOCYTES # 1.4 10^3/ul (0.8-2.9); LYMPHOCYTES % 9.4 % (15.0-51.0); MEAN CORPUSCULAR HEMOGLOBIN 32.8 pg (29.0-33.0); MEAN CORPUSCULAR HGB CONC 33.9 g/dl (32.0-37.0); MEAN CORPUSCULAR VOLUME 96.9 fl (82.0-101.0); MEAN PLATELET VOLUME 9.8 fl (7.4-10.4); MONOCYTES % 6.8 % (0.0-11.0); NEUTROPHIL # 11.7 10^3/ul (1.6-7.5); NEUTROPHILS % 79.2 % (39.0-77.0); PLATELET COUNT 273 10^3/UL (140-415); RED CELL DISTRIBUTION WIDTH 12.7 % (11.5-14.5); WHITE BLOOD COUNT 14.8 10^3/ul (4.8-10.8)
[2017-01-23 07:25] VITALS: BP 145/63; RESP 18
--- NOTE | 2017-01-23 07:40 | PN ---
DATE: 01/22/2017 CARDIOLOGY FOLLOWUP SUBJECTIVE: Discussed with the staff. Patient off of telemetry. No reported chest pain or pressur e. Breathing has improved. MEDICATIONS: Reviewed. PHYSICAL EXAMINATION: VITAL SIGNS: Temperature 97.1, heart rate 67, blood pressure 120/66, respiration rate of 18. HEENT: Normocephalic, atraumatic. RESPIRATORY: No acute distress. Saturating 100%. CARDIOVASCULAR: Regular rate and rhythm, systolic murmur. PULMONARY: With mild wheezes. GASTROINTESTINAL: Soft, nontender. EXTREMITIES: With trivial edema. NEUROLOGIC: Awake and alert. PSYCHIATRIC: Appeared to be calm. LABORATORY: WBC of 15.9, hemoglobin 12, platelets of 267. Sodium 140, potassium 3.9, BUN of 31, cr eatinine 0.71, glucose of 120. ASSESSMENT AND PLAN: 1. Chest pain has improved with negative workup including negative stress test within the past year and negative CT coronary angiogram. 2. Chronic obstructive pulmonary disease/asthma. 3. History of tobacco use. 4. Thyroid disorder. 5. Depression. RECOMMENDATIONS: We will continue with the current cardiac care. Continue pulmonary care. Dischar ge planning as per internal medicine. Dictated By: LORE SOLIZ MD AV/DANIELLE Conf#: [id number] DID#: [id number] CC: MAXWELL ELLINGTON MD;*EndCC*
[2017-01-23] MEDS: ALBUTEROL/IPRATROPIUM (NEB) 3 ML AMP NEB SCH ×3 (07:46→11:43)
[2017-01-23] MEDS: SALMETEROL/FLUTICASONE 250/50 INHA INH SCH (08:37)
[2017-01-23] MEDS: LEVOTHYROXINE 25 MCG TAB PO SCH (08:37)
[2017-01-23] MEDS: DOCUSATE SODIUM 100 MG CAP PO PRN (08:38)
[2017-01-23] MEDS: RANOLAZINE (SR) 500 MG TAB PO SCH (08:38)
[2017-01-23] MEDS: GABAPENTIN 300 MG CAP PO SCH ×2 (08:38→12:08)
[2017-01-23] MEDS: VENLAFAXINE (XR) 75 MG CAP PO SCH (08:38)
[2017-01-23] MEDS: FAMOTIDINE 20 MG TAB PO SCH (08:38)
[2017-01-23] MEDS: CHOLECALCIFEROL 1,000 UNIT TAB PO SCH (08:38)
[2017-01-23] MEDS: L ACIDOPHIL/B LACTIS/B LONGUM CAPSULE PO SCH (08:38)
[2017-01-23] MEDS: HEPARIN 5,000 UNIT/0.5 ML VIAL SC SCH (08:43)
[2017-01-23] MEDS: NICOTINE (21 MG/24 HR) PATCH TRANSDERM SCH (08:46)
--- NOTE | 2017-01-23 08:52 | PN ---
DATE: 01/23/2017 CARDIOLOGY FOLLOWUP SUBJECTIVE: Discussed with the staff. The patient with no chest pain or pressure. Her breathing h as significantly improved and less wheezing. MEDICATIONS: Were reviewed. PHYSICAL EXAMINATION: VITAL SIGNS: Temperature 97.1, heart rate of 74, blood pressure 105/57, respiratory rate of 18, sat urating 99%. HEENT: Normocephalic, atraumatic. In no acute distress. Pupils are equal. CARDIOVASCULAR: Regular rate and rhythm. A systolic murmur, grade I. PULMONARY: With minimal wheezes. GASTROINTESTINAL: Soft, nontender. EXTREMITIES: No significant lower extremity edema. NEUROLOGIC: Awake and alert. PSYCHIATRIC: Appeared to be calm. LABORATORY: Shows a WBC of 14.8, hemoglobin 12.8, and platelets 273. ASSESSMENT AND PLAN: 1. Chest pain. Has improved now, with negative workup, including negative stress test within the p ast year and negative CT coronary angiogram. 2. Chronic obstructive pulmonary disease and asthma. 3. History of tobacco use. 4. Thyroid disorder. 5. History of depression. RECOMMENDATIONS: Will continue with pulmonary care. Continue with the current cardiac care. Disch arge planning when stable from an internal medicine and pulmonary standpoint. Dictated By: LORE SOLIZ MD AV/DANIELLE Conf#: [id number] DID#: [id number] CC: MAXWELL ELLINGTON MD;*EndCC*
[2017-01-23] MEDS: METHYLPREDNISOLONE 40 MG INJ IV SCH (12:08)
[2017-01-23] MEDS ORDERED: ADV25050 INH (14:46)
[2017-01-23] MEDS ORDERED: RANO500T2 PO (14:46)
[2017-01-23] MEDS ORDERED: PRED20TA PO (14:46)
--- NOTE | 2017-01-23 14:56 | DS ---
Date/Time of Note Date/Time of Note DATE: 01/23/17 TIME: 14:49 Discharge Summary Admission/Discharge Info Admit Date/Time January 13, 2017 at 15:24 Discharge Date/Time Final Diagnosis 1. Chronic obstructive pulmonary disease exacerbation. improved, follow up with PCP 2. Chest pain. Acute coronary syndrome ruled out. Cardiac CT negative, resolved , on ranexa 3. Nicotine use. advise to quit 4. Hypothyroidism. Continue Synthroid. 5. Depression. Continue Effexor. Patient Condition: Stable Procedures [place] [address] Radiology Main Line: [phone] DIAGNOSTIC IMAGING REPORT Patient: RAHEEL BAKER : 1965 Age: 51 Sex: F MR #: [id number] DOS: 01/16/17 0000 Ordering MD: JEFE LINCOLN Location: [facility] – [place] Room/Bed: [facility] PROCEDURE: CTA OF THE HEART AND CORONARY ARTERIES WITH CONTRAST CLINICAL INDICATION: Chest pain COMPARISON: CT calcium score 01/14/2017, cardiac stress perfusion examination , cardiac CTA 09/21/2015 TECHNIQUE: Multiphasic ECG-gated volumetric acquisition from the ascending aorta to the diaphragm performed with intravenous contrast on a high-resolution multi detector scanner with multiphasic reconstructions. Multiplanar reconstructions, three-dimensional reconstructions, as well as maximal intensity projection images are produced and reviewed. One or more of the following dose reduction techniques were used: Automated exposure control; Adjustment of the mA and/or kV according to patient size; Use of iterative reconstruction technique; ECG dose modulation. CTDI = 8, 27, 83 mGy. DLP = 1934 mGy-cm. Stenosis classification of vessels greater than 1.5 mm in diameter: None 0% Minimal 1-24% Mild 25-49% Moderate 50-69% Severe 70-99% Occluded 100% (When a vessel appears focally occluded with distal reconstitution there may be trace patency which is below the resolution of the examination or collateral pathways may exist.) CONTRAST: 100 mL of Omnipaque 350 intravenously without adverse event. FINDINGS: CORONARY CT ANGIOGRAM: Overall quality of the CT angiographic examination is excellent. Normal origins of the coronary arteries are present. The coronary artery system is right dominant. Right Coronary Artery: Minimal noncalcified plaque present in the mid segment of the vessel without any significant stenosis, better visualized on the current examination. Posterior descending and posterior lateral coronary artery branches are widely patent. Left Main Coronary Artery: Widely patent throughout, without focal significant stenosis. Left Anterior Descending Coronary Artery: Small mixed plaque present at the origin of the vessel does not produce any significant stenosis; better visualized on the current examination. Superficial bridging is present in the mid segment of the vessel over a length of 15 mm and a depth of less than 1 mm. Visualized septal and diagonal branches: Widely patent without focal irregularity, mural plaque, or significant stenosis. Left Circumflex Coronary Artery: Small calcified plaque present at the origin of the vessel does not produce any significant stenosis, unchanged. Visualized obtuse marginal branches: Widely patent throughout, without focal significant stenosis. Normal appearance of the pericardium. No pericardial effusion. Minimal thickening of the trileaflet aortic valve. Normal appearance of the mitral valve. Myocardial attenuation appears within normal limits. Left atrial appendage is well opacified. No evidence of intracardiac mass or thrombus. EXTRACARDIAC FINDINGS: Thoracic aorta: Normal caliber. Pulmonary vessels: Normal caliber pulmonary arteries. No evidence of central filling defect. Conventional pulmonary venous return. Chest: The visualized lung parenchyma is unremarkable. No mediastinal lymphadenopathy. Abdomen: Incidental imaging of the upper abdomen is unremarkable. IMPRESSION: Right Coronary Artery: Minimal noncalcified plaque present in the mid segment of the vessel without any significant stenosis, better visualized on the current examination. Left Main Coronary Artery: Widely patent, unchanged. Left Anterior Descending Coronary Artery: Small mixed plaque present at the origin of the vessel does not produce any significant stenosis; better visualized on the current examination. Left Circumflex Coronary Artery: Small calcified plaque present at the origin of the vessel does not produce any significant stenosis, unchanged RPTAT: AADD .Franklyn Ivey MD, Date Time Electronically viewed and signed by .Franklyn Ivey MD, on 01/16/2017 12:39 .B/ Hospital Course This is a 51-year-old female with past medical history of asthma, depression and hypothyroidism who has been having chest pain for the last 2 days, getting progressively worse. She also noticed some left arm numbness which is new. She also had some nausea symptoms and decreased appetite, some abdominal pain symptoms and also some loose stools, some positive chills, but denies fevers, no upper or lower GI bleeding, no headaches or dizziness or loss of consciousness. She became concerned and decided to come into the ER where today , she was found with questionable ST depressions on EKG as well. For chest pain, patient has negative troponin. Coronary angiography was unremakable. Patient is started on ranexa per cardiology. Chest pain resolved. For COPD exacerbation, patient is treated with nebulizer, soluMedrol, symptoms improved. Patient will be on inhalers and tapering dosage of prednisone. She is strongly advised to quit smoking. Home Meds Active Scripts Prednisone* (Prednisone*) 20 Mg Tab, 20 MG PO DAILY for 3 Days, TAB Prov:MAXWELL ELLINGTON MD 01/23/17 Salmeterol Xinaf/Fluticasone* (Advair*) 250-50 Diskus Inhaler, 1 INH INH BID for 30 Days Prov:MAXWELL ELLINGTON MD 01/23/17 Ranolazine* (Ranexa*) 500 Mg Tab.sr.12h, 500 MG PO Q12 for 30 Days, TAB Prov:MAXWELL ELLINGTON MD 01/23/17 Lactobacillus Acidophilus* (Lactinex*) 1 Tab Chew, 1 TAB PO BID for 5 Days, TAB Prov:MESFIN BARBOZA 06/26/16 Nebulizer (CarWoo! Disposable Nebulizer) 1 Each Each, 1 EACH MC ONCE Y for SHORTNESS OF BREATH, #1 Prov:MESFIN BARBOZA 06/26/16 Ipratropium-Albuterol (Ipratropium-Albuterol) 0.5-3 Mg/3 Ml Ampul.neb, 3 ML INHALATION Q6, #30 VIAL use every 6hours scheduled for 8 doses and then use as needed only every 4hours for shortness of breath Prov:MESFIN BARBOZA 06/26/16 Albuterol/Ipratropium* (Combivent Respimat*) 20-100 Mcg/Inh - 4 Gm Aer.w.adap, 1 PUFF INHALATION QID, #1 INHALER Prov:MESFIN BARBOZA. 06/26/16 Aspirin (Aspirin) 81 Mg Chew, 81 MG PO DAILY for 30 Days, TAB Prov:MESFIN BARBOZA. 06/26/16 Alprazolam* (Xanax*) 0.5 Mg Tab, 0.5 MG PO QHS Y for ANXIETY, #20 TAB Prov:MESFIN BARBOZA. 06/26/16 Hydrochlorothiazide* (Hydrochlorothiazide*) 25 Mg Tab, 25 MG PO DAILY, #30 TAB Prov:DEACON MORALSE MD 09/21/15 Reported Medications Topiramate* (Topiramate*) 100 Mg Tablet, 100 MG ORAL DAILY, #30 01/13/17 Hydrocodone/Acetaminophen ([place]ley 10-325 Tablet) 1 Each Tablet, 1 EACH PO Q6 Y for PAIN, TAB 06/20/16 Levothyroxine Sodium* (Levothyroxine Sodium*) 25 Mcg Tablet, 25 MCG PO AC BREAKFAST, TAB 03/21/15 Cholecalciferol* (Vitamin D*) 5,000 Unit Tablet, 5000 UNIT PO DAILY, TAB 03/21/15 Venlafaxine Hcl* (Effexor XR*) 150 Mg Cap.sr.24h, 300 MG PO QAM, CAP 08/08/14 Gabapentin* (Neurontin*) 300 Mg Capsule, 300 MG PO TID, CAP 08/08/14 Discontinued Scripts Fluconazole* (Fluconazole*) 200 Mg Tablet, 200 MG PO ONCE Y for YEAST SYMPTOMS, #1 TAB Prov:MESFIN BARBOZATami 06/26/16 Amoxicillin/Potassium Clav (Amox-Clav 875-125 mg Tablet) 875-125 mg Tab, 1 TAB PO BID for 5 Days, TAB Prov:MESFIN BARBOZA. 06/26/16 Prednisone* (Prednisone*) 10 Mg Tab, 10 MG PO DAILY, #21 TAB take 6 pills tomorrow take 5 pills on the next day take 4 pills on the next day take 3 pills on the next day take 2 pills on the next day take 1 pill on the next day then stop Prov:MESFIN BARBOZATami 06/26/16 Follow-up Plan PCP in one week cardiology in one week Primary Care Provider Yanira Mathis Pending Labs Laboratory Tests Test 01/23/17 05:01 White Blood Count 14.810^3/ul (4.8-10.8) Red Blood Count 3.9010^6/ul (4.20-5.40) Hemoglobin 12.8g/dl (12.0-16.0) Hematocrit 37.8% (37.0-47.0) Mean Corpuscular Volume 96.9fl (82.0-101.0) Mean Corpuscular Hemoglobin 32.8pg (29.0-33.0) Mean Corpuscular Hemoglobin Concent 33.9g/dl (32.0-37.0) Red Cell Distribution Width 12.7% (11.5-14.5) Platelet Count 31269^3/UL (140-415) Mean Platelet Volume 9.8fl (7.4-10.4) Neutrophils % 79.2% (39.0-77.0) Lymphocytes % 9.4% (15.0-51.0) Monocytes % 6.8% (0.0-11.0) Eosinophils % 0.0% (0.0-7.0) Basophils % 0.1% (0.0-2.0) Nucleated Red Blood Cells % 0.0/100WBC (0.0-0.0) Neutrophils # 11.710^3/ul (1.6-7.5) Lymphocytes # 1.410^3/ul (0.8-2.9) Monocytes # 1.010^3/ul (0.3-0.9) Eosinophils # 0.010^3/ul (0.0-0.5) Basophils # 0.010^3/ul (0.0-0.1) Nucleated Red Blood Cells # 0.010^3/ul (0.0-0.0) MAXWELL ELLINGTON MD January 23, 2017 14:56
== END 2017-01-23 15:50 | disposition home or self-care (01) | DRG 191 ==
LOC: E/R 13:17 → MS4 15:24 → PP2 01-20 18:31
PROVIDERS: ADMIT Internal Medicine; ATTEND Internal Medicine
DX: J44.1 Chronic obstructive pulmonary disease with (acute) exacerbation (principal); J45.901 Unspecified asthma with (acute) exacerbation; R07.89 Other chest pain; E87.6 Hypokalemia; D64.9 Anemia, unspecified; Z72.0 Tobacco use; F12.90 Cannabis use, unspecified, uncomplicated; R20.0 Anesthesia of skin; M54.9 Dorsalgia, unspecified; E03.9 Hypothyroidism, unspecified; I45.10 Unspecified right bundle-branch block; F32.9 Major depressive disorder, single episode, unspecified
CPT/HCPCS: 36415; 71010; 75571; 75574; 80048; 80053; 80061; 82550; 82553; 83036; 83735; 84100; 84439; 84443; 84484; 85025; 85610; 85730; 93005; 93306; 94640; 94664; 97116; 97163; 97530; J1644; J1956; J2060; J2920; J2930; J3480; J7030; J7512; Q9967

== ENCOUNTER 2017-04-27 19:08 | Emergency (ER) | payer OTHER ==
[~2017-04-27] VITALS: Ht 167.6 cm; Wt 65.9 kg
[~2017-04-27 19:08] MED LIST changes: +ADV25050 INH; -AMOX1TAB10 PO; -FLUC200T52 PO; -PRED10TA PO; +PRED20TA PO; +RANO500T2 PO; +TOPI-25 ORAL
[2017-04-27 19:20] VITALS: Ht 167.6 cm; Wt 65.9 kg
[2017-04-27] MEDS ORDERED: IBUPROFEN 600 MG TAB PO ONE (20:00)
[2017-04-27] MEDS ORDERED: HYDROCODONE/APAP (10/325) TAB PO ONE (20:00)
--- NOTE | 2017-04-27 21:04 | RADRPT ---
PROCEDURE: XR Ankle. CLINICAL INDICATION: Left ankle pain. TECHNIQUE: Three views of the left ankle were performed. COMPARISON: None. FINDINGS: No acute fracture or dislocation is seen. The ankle mortise is symmetric. No radiopaque foreign body is identified. No significant soft tissue swelling is noted. IMPRESSION: 1. No acute fracture or dislocation. RPTAT: HFN .Felecia Alvarado MD, Date Time Electronically viewed and signed by .Felecia Alvarado MD, MD on 04/27/2017 21:04 .N/
--- NOTE | 2017-04-27 21:07 | RADRPT ---
PROCEDURE: XR Foot. CLINICAL INDICATION: Left foot pain. TECHNIQUE: Three views of the left foot are available for review. COMPARISON: None available FINDINGS: No acute fracture or dislocation is seen. No radiopaque foreign body is identified. Mild scattered degenerative changes are noted. Small plantar and dorsal calcaneal spurs are noted. No significant soft tissue swelling is present. IMPRESSION: 1. No acute fracture or dislocation. 2. Mild scattered degenerative changes. RPTAT: HFN .Felecia Alvarado MD, Date Time Electronically viewed and signed by .Felecia Alvarado MD, on 04/27/2017 21:07 .N/
[2017-04-27] MEDS ORDERED: IBUP-1542 PO (21:10)
[2017-04-27 21:47] VITALS: BP 112/66; PULSE 81; RESP 18
--- NOTE | 2017-04-30 19:54 | ERD ---
ER Documentation Chief Complaint Date/Time DATE: 04/30/17 TIME: 19:46 Chief Complaint left foot pain s/p slip while standing. Bruise noted to lateral left foot HPI This is a 51 year old female presenting to ER with left foot pain after fall today. Patient states she slipped down a hill and fell with her left foot dorsiflexed. Patient reports severe pain to left foot. No numbness/tingling or loss of sensation. ROS All systems reviewed and are negative except as per history of present illness. Medications Home Meds Active Scripts Ibuprofen* (Motrin*) 600 Mg Tab, 600 MG PO Q6, #20 TAB Prov:NATE DODD NP 04/27/17 Prednisone* (Prednisone*) 20 Mg Tab, 20 MG PO DAILY for 3 Days, TAB Prov:MAXWELL ELLINGTON MD 01/23/17 Salmeterol Xinaf/Fluticasone* (Advair*) 250-50 Diskus Inhaler, 1 INH INH BID for 30 Days Prov:MAXWELL ELLINGTON MD 01/23/17 Ranolazine* (Ranexa*) 500 Mg Tab.sr.12h, 500 MG PO Q12 for 30 Days, TAB Prov:MAXWELL ELLINGTON MD 01/23/17 Lactobacillus Acidophilus* (Lactinex*) 1 Tab Chew, 1 TAB PO BID for 5 Days, TAB Prov:MESFIN BARBOZA 06/26/16 Nebulizer (WikiBrains Disposable Nebulizer) 1 Each Each, 1 EACH MC ONCE Y for SHORTNESS OF BREATH, #1 Prov:MESFIN BARBOZA 06/26/16 Ipratropium-Albuterol (Ipratropium-Albuterol) 0.5-3 Mg/3 Ml Ampul.neb, 3 ML INHALATION Q6, #30 VIAL use every 6hours scheduled for 8 doses and then use as needed only every 4hours for shortness of breath Prov:MESFIN BARBOZA 06/26/16 Albuterol/Ipratropium* (Combivent Respimat*) 20-100 Mcg/Inh - 4 Gm Aer.w.adap, 1 PUFF INHALATION QID, #1 INHALER Prov:MESFIN BARBOZA 06/26/16 Aspirin (Aspirin) 81 Mg Chew, 81 MG PO DAILY for 30 Days, TAB Prov:TAMRA,BOLATITO M. 06/26/16 Alprazolam* (Xanax*) 0.5 Mg Tab, 0.5 MG PO QHS Y for ANXIETY, #20 TAB Prov:MESFIN BARBOZA. 06/26/16 Hydrochlorothiazide* (Hydrochlorothiazide*) 25 Mg Tab, 25 MG PO DAILY, #30 TAB Prov:DEACON MORALES MD 09/21/15 Reported Medications Topiramate* (Topiramate*) 100 Mg Tablet, 100 MG ORAL DAILY, #30 01/13/17 Hydrocodone/Acetaminophen ([place] 10-325 Tablet) 1 Each Tablet, 1 EACH PO Q6 Y for PAIN, TAB 06/20/16 Levothyroxine Sodium* (Levothyroxine Sodium*) 25 Mcg Tablet, 25 MCG PO AC BREAKFAST, TAB 03/21/15 Cholecalciferol* (Vitamin D*) 5,000 Unit Tablet, 5000 UNIT PO DAILY, TAB 03/21/15 Venlafaxine Hcl* (Effexor XR*) 150 Mg Cap.sr.24h, 300 MG PO QAM, CAP 08/08/14 Gabapentin* (Neurontin*) 300 Mg Capsule, 300 MG PO TID, CAP 08/08/14 Allergies Allergies: Coded Allergies: morphine (Verified Adverse Reaction, Unknown, headache, 04/27/17) Not an allergy PMhx/Soc History of Surgery: Yes (hysterectomy, spine fusion sx in 2011) Anesthesia Reaction: No Hx Neurological Disorder: No Hx Respiratory Disorders: Yes (Asthma, Chronic Bronchitis) Hx Cardiac Disorders: No Hx Psychiatric Problems: Yes (Depression, Anxiety) Hx Miscellaneous Medical Probl: Yes (asthma, depression, hypothyroidsm, COPD. ) Hx Alcohol Use: Yes (once and a while) Hx Substance Use: No Hx Tobacco Use: Yes Smoking Status: Current every day smoker Physical Exam Vitals Vital Signs Date Time Temp Pulse Resp B/P Pulse Ox O2 Delivery O2 Flow Rate FiO2 04/27/17 21:47 81 18 112/66 97 Room Air 04/27/17 19:20 98.9 87 18 106/67 100 Physical Exam Const: Alert, anxious Head: Atraumatic Eyes: Normal Conjunctiva ENT: Normal External Ears, Nose and Mouth. Neck: Full range of motion..~ No meningismus. Resp: Clear to auscultation bilaterally Cardio: Regular rate and rhythm, no murmurs Abd: Soft, non tender, non distended. Normal bowel sounds Skin: No petechiae or rashes Back: No midline or flank tenderness Ext: No cyanosis, or edema. mild ecchymosis to dorsal aspect of left lateral foot. Sensation fully intact. Pedal pulses 2+ bilaterally. Able to dorsiflex and plantar flex left foot without difficulty. Normal murguia test. Neur: Awake and alert Psych: Normal Mood and Affect Results 24 hrs Current Medications Medications (Trade) Dose Ordered Sig/Marnie Route PRN Reason Start Time Stop Time Status Last Admin Dose Admin Acetaminophen/ Hydrocodone Bitart ([place] (10)) 1 tab ONCE ONCE PO 04/27/17 20:00 04/27/17 20:01 DC 04/27/17 21:22 Ibuprofen (Motrin) 600 mg ONCE ONCE PO 04/27/17 20:00 04/27/17 20:01 DC Procedures/MDM [place] [address] Rad[facility] Main Line: [phone] DIAGNOSTIC IMAGING REPORT Patient: RAHEEL BAKER : 1965 Age: 51 Sex: F MR #: [id number] DOS: 04/27/17 0000 Ordering MD: NATE DODD NP Location: [facility] Room/Bed: PROCEDURE: XR Ankle. CLINICAL INDICATION: Left ankle pain. TECHNIQUE: Three views of the left ankle were performed. COMPARISON: None. FINDINGS: No acute fracture or dislocation is seen. The ankle mortise is symmetric. No radiopaque foreign body is identified. No significant soft tissue swelling is noted. IMPRESSION: 1. No acute fracture or dislocation. [place] [address] Rad[facility] Main Line: [phone] DIAGNOSTIC IMAGING REPORT Patient: RAHEEL BAKER : 1965 Age: 51 Sex: F MR #: [id number] DOS: 04/27/17 1952 Ordering MD: NATE DODD NP Location: [facility] Room/Bed: PROCEDURE: XR Foot. CLINICAL INDICATION: Left foot pain. TECHNIQUE: Three views of the left foot are available for review. COMPARISON: None available FINDINGS: No acute fracture or dislocation is seen. No radiopaque foreign body is identified. Mild scattered degenerative changes are noted. Small plantar and dorsal calcaneal spurs are noted. No significant soft tissue swelling is present. IMPRESSION: 1. No acute fracture or dislocation. 2. Mild scattered degenerative changes. MDM: 51 year old female with past medical history of chronic pain and fibromyalgia presents to ER after ground level fall earlier today. Patient fell with her left foot hyperextended. Now having pain to left lateral foot. Bruising noted to left lateral dorsal aspect of left foot otherwise unremarkable exam. Patient given [place] 5/325mg po while in ED. XR ankle reviewed by radiologist as no acute fracture. XR left foot reviewed by radiologist as no acute fracture or dislocation. Mild scattered degenerative changes. Low suspicion for acute fracture , dislocation or Achilles tendon rupture. Patient likely has foot sprain. Upon discharge, patient is unable to be located and appears to have eloped. Departure Diagnosis: Primary Impression: Injury of foot Condition: Stable Patient Instructions: Sprain Foot Referrals: [facility] (PCP) Additional Instructions: Call your primary care doctor TOMORROW for an appointment during the next 2-3 days.See the doctor sooner or return here if your condition worsens before your appointment time. Return to ED for any high fever, chest pain, difficulty breathing, shortness breath, wheezing, vomiting, diarrhea, abdominal pain or any new or worsening symptoms. NATE DODD NP Apr 30, 2017 19:52
== END 2017-04-27 21:50 | disposition home or self-care (01) ==
LOC: FTE 19:08
DX: S90.32XA Contusion of left foot, initial encounter (principal); E03.9 Hypothyroidism, unspecified; J44.9 Chronic obstructive pulmonary disease, unspecified; W01.0XXA Fall on same level from slipping, tripping and stumbling without subsequent striking against object, initial encounter; Y92.89 Other specified places as the place of occurrence of the external cause; Z79.82 Long term (current) use of aspirin
CPT/HCPCS: 73610; 73630; Z7502; Z7610

== ENCOUNTER 2017-05-25 17:32 | Emergency (ER) | payer OTHER ==
[~2017-05-25] VITALS: Ht 170.2 cm; Wt 66.5 kg
[~2017-05-25 17:32] MED LIST changes: -HYD25 PO; +HYDR25TA6 PO; +IBUP-1542 PO
[2017-05-25 17:34] VITALS: Ht 170.2 cm; Wt 66.5 kg
[2017-05-25] MEDS ORDERED: TRIMETHOPRIM/SULFAMETHOX (DS) TAB PO ONE (19:00)
[2017-05-25] MEDS ORDERED: CEPHALEXIN 500 MG CAP PO ONE (19:00)
[2017-05-25] MEDS ORDERED: predniSONE 20 MG TAB PO ONE (19:00)
[2017-05-25] MEDS ORDERED: HYDROCODONE/APAP (10/325) TAB PO ONE (19:00)
[2017-05-25] MEDS ORDERED: SULF1TAB31 PO (19:08)
[2017-05-25] MEDS ORDERED: HYDR-906 PO (19:08)
[2017-05-25] MEDS ORDERED: CEPH-443 PO (19:08)
--- NOTE | 2017-05-25 19:14 | ERD ---
ER Documentation Chief Complaint Date/Time DATE: 05/25/17 TIME: 19:11 Chief Complaint painful itchy rash x6 days, right jaw below ears area. HPI This 51-year-old female complains of a painful area of redness on her right jaw area. Been for the last 6 days worsening. [place] so she did not seek medical care. She denies fevers. She has a bitemporal headache as well. Started with a rash in the area. ROS All systems reviewed and are negative except as per history of present illness. Medications Home Meds Active Scripts Cephalexin* (Keflex*) 500 Mg Capsule, 500 MG PO QID for 7 Days, CAP Prov:BETTE MONZON MD 05/25/17 Sulfamethoxazole/Trimethoprim* (Bactrim Ds* Tablet) 1 Each Tablet, 1 TAB PO BID for 7 Days, #14 TAB Prov:BETTE MONZON MD 05/25/17 Hydrocodone/Acetaminophen ([place] 5-325 Tablet) 1 Each Tablet, 1 TAB PO Q6H Y for PAIN, #7 TAB Prov:BETTE MONZON MD 05/25/17 Ibuprofen* (Motrin*) 600 Mg Tab, 600 MG PO Q6, #20 TAB Prov:NATE DODD NP 04/27/17 Prednisone* (Prednisone*) 20 Mg Tab, 20 MG PO DAILY for 3 Days, TAB Prov:MAXWELL ELLINGTON MD 01/23/17 Salmeterol Xinaf/Fluticasone* (Advair*) 250-50 Diskus Inhaler, 1 INH INH BID for 30 Days Prov:MAXWELL ELLINGTON MD 01/23/17 Ranolazine* (Ranexa*) 500 Mg Tab.sr.12h, 500 MG PO Q12 for 30 Days, TAB Prov:MAXWELL ELLINGTON MD 01/23/17 Lactobacillus Acidophilus* (Lactinex*) 1 Tab Chew, 1 TAB PO BID for 5 Days, TAB Prov:MESFIN BARBOZA 06/26/16 Nebulizer (Imimteks Disposable Nebulizer) 1 Each Each, 1 EACH MC ONCE Y for SHORTNESS OF BREATH, #1 Prov:MESFIN BARBOZA 06/26/16 Ipratropium-Albuterol (Ipratropium-Albuterol) 0.5-3 Mg/3 Ml Ampul.neb, 3 ML INHALATION Q6, #30 VIAL use every 6hours scheduled for 8 doses and then use as needed only every 4hours for shortness of breath Prov:MESFIN BARBOZATami 06/26/16 Albuterol/Ipratropium* (Combivent Respimat*) 20-100 Mcg/Inh - 4 Gm Aer.w.adap, 1 PUFF INHALATION QID, #1 INHALER Prov:MESFIN BARBOZATami 06/26/16 Aspirin (Aspirin) 81 Mg Chew, 81 MG PO DAILY for 30 Days, TAB Prov:MESFIN BARBOZATami 06/26/16 Alprazolam* (Xanax*) 0.5 Mg Tab, 0.5 MG PO QHS Y for ANXIETY, #20 TAB Prov:MESFIN BARBOZATami 06/26/16 Hydrochlorothiazide* (Hydrochlorothiazide*) 25 Mg Tab, 25 MG PO DAILY, #30 TAB Prov:DEACON MORALES MD 09/21/15 Reported Medications Topiramate* (Topiramate*) 100 Mg Tablet, 100 MG ORAL DAILY, #30 01/13/17 Hydrocodone/Acetaminophen ([place] 10-325 Tablet) 1 Each Tablet, 1 EACH PO Q6 Y for PAIN, TAB 06/20/16 Levothyroxine Sodium* (Levothyroxine Sodium*) 25 Mcg Tablet, 25 MCG PO AC BREAKFAST, TAB 03/21/15 Cholecalciferol* (Vitamin D*) 5,000 Unit Tablet, 5000 UNIT PO DAILY, TAB 03/21/15 Venlafaxine Hcl* (Effexor XR*) 150 Mg Cap.sr.24h, 300 MG PO QAM, CAP 08/08/14 Gabapentin* (Neurontin*) 300 Mg Capsule, 300 MG PO TID, CAP 08/08/14 Allergies Allergies: Coded Allergies: No Known Drug Allergies (Unverified Allergy, Unknown, 05/25/17) PMhx/Soc History of Surgery: Yes (hysterectomy, spine fusion sx in 2011) Anesthesia Reaction: No Hx Neurological Disorder: No Hx Respiratory Disorders: Yes (Asthma, Chronic Bronchitis) Hx Cardiac Disorders: No Hx Psychiatric Problems: Yes (Depression, Anxiety) Hx Miscellaneous Medical Probl: Yes (asthma, depression, hypothyroidsm, COPD. ) Hx Alcohol Use: Yes (once and a while) Hx Substance Use: No Hx Tobacco Use: Yes Physical Exam Vitals Vital Signs Date Time Temp Pulse Resp B/P Pulse Ox O2 Delivery O2 Flow Rate FiO2 05/25/17 17:34 97.6 82 20 138/76 100 Physical Exam Const: []Alert, uncomfortable but no apparent distress Head: Atraumatic Eyes: Normal Conjunctiva ENT: Normal External Ears, Nose and Mouth.Tender lymphadenitis in the right anterior cervical area. There is some erythema and a small area of desquamation and redness at the angle of the right mandible. There is some slight superficial swelling as well. There is no streaking. External auditory canal and TMs are normal. There is no mastoid tenderness. Airway is patent. Neck: Full range of motion..~ No meningismus. Resp: Clear to auscultation bilaterally Cardio: Regular rate and rhythm, no murmurs Abd: Soft, non tender, non distended. Normal bowel sounds Skin: No petechiae or rashes Back: No midline or flank tenderness Ext: No cyanosis, or edema Neur: Awake and alert Psych: Normal Mood and Affect Results 24 hrs Current Medications Medications (Trade) Dose Ordered Sig/Marnie Route PRN Reason Start Time Stop Time Status Last Admin Dose Admin Trimethoprim/ Sulfamethoxazole (Bactrim (Ds)) 1 tab ONCE ONCE PO 05/25/17 19:00 05/25/17 19:01 DC Cephalexin (Keflex) 500 mg ONCE ONCE PO 05/25/17 19:00 05/25/17 19:01 DC Prednisone (Prednisone) 40 mg ONCE ONCE PO 05/25/17 19:00 05/25/17 19:01 DC Acetaminophen/ Hydrocodone Bitart ([place] (10/325)) 1 tab ONCE ONCE PO 05/25/17 19:00 05/25/17 19:01 DC Procedures/MDM . Patient appears up with a facial lesion on the right jaw area some redness suggesting cellulitis or folliculitis possibly secondary infection of a rash. There is some reactive lymphadenitis as well. There is no evidence of abscess or airway obstruction. There is no evidence of mastoiditis. Patient was given [place] 10 mg by mouth Bactrim and Keflex will be discharged home with a 2 day wound check and return precautions for new or worsening symptoms.She was given 1 dose of prednisone for acute lymphadenitis as well. Zoster is a consideration although does not have the classic appearance of dermatomal vesicles so we will defer antivirals. Departure Diagnosis: Primary Impression: Cellulitis Site of cellulitis: unspecified site Qualified Code: L03.90 - Cellulitis, unspecified cellulitis site Additional Impression: Rash Condition: Stable Patient Instructions: Cellulitis, Facial, Lymphangitis Additional Instructions: Symptoms appear to be local infection of the skin with swollen lymph nodes. Recheck for worsening redness, fevers, new worsening symptoms or primary care doctor this week. BETTE MONZON MD May 25, 2017 19:14
[2017-05-25 20:25] VITALS: BP 146/77; PULSE 70; RESP 14; TEMP 98.7
== END 2017-05-25 20:28 | disposition home or self-care (01) ==
LOC: FTE 17:32
DX: L03.211 Cellulitis of face (principal); J44.9 Chronic obstructive pulmonary disease, unspecified; E03.9 Hypothyroidism, unspecified; Z87.891 Personal history of nicotine dependence
CPT/HCPCS: J7512; Z7502; Z7610; 99284

== ENCOUNTER 2017-06-03 14:36 | Emergency (ER) | payer OTHER ==
[~2017-06-03] VITALS: Ht 160 cm; Wt 78.0 kg
[~2017-06-03 14:36] MED LIST changes: +CEPH-443 PO; +HYDR-906 PO; +SULF1TAB31 PO
[2017-06-03 14:39] VITALS: Ht 160 cm; Wt 78.0 kg
[2017-06-03] MEDS ORDERED: ASPIRIN 81 MG TAB PO STA (18:34)
--- NOTE | 2017-06-03 18:48 | ERD ---
ER Documentation Chief Complaint Date/Time DATE: 06/03/17 TIME: 18:42 Chief Complaint right leg pain, head.arm tingling, chest pains HPI Patient is a 51-year-old woman who presents with sudden onset, constant, severe posterior right knee pain for 5 hours. She denies trauma to the leg. She denies numbness or paresthesia. She denies redness or swelling. She also reports having sudden onset, intermittent, moderate, dull substernal chest pain left precordial chest pain that started at 3:30 in the morning and lasted for 30 minutes. She has had 2 additional episodes lasting approximately 30 minutes including one while she was in the waiting room of the ER. She denies shortness of breath. She reports radiation to the left shoulder. She reports mild paresthesia in the left arm. She denies fever, cough, new back pain. She has history of chronic back pain. She also has history of recurrent chest pain for which she has had multiple prior workups have been negative. ROS All systems reviewed and are negative except as per history of present illness. Medications Home Meds Active Scripts Cephalexin* (Keflex*) 500 Mg Capsule, 500 MG PO QID for 7 Days, CAP Prov:BETTE MONZON MD 05/25/17 Sulfamethoxazole/Trimethoprim* (Bactrim Ds* Tablet) 1 Each Tablet, 1 TAB PO BID for 7 Days, #14 TAB Prov:BETTE MONZON MD 05/25/17 Hydrocodone/Acetaminophen ([place] 5-325 Tablet) 1 Each Tablet, 1 TAB PO Q6H Y for PAIN, #7 TAB Prov:BETTE MONZON MD 05/25/17 Salmeterol Xinaf/Fluticasone* (Advair*) 250-50 Diskus Inhaler, 1 INH INH BID for 30 Days Prov:MAXWELL ELLINGTON MD 01/23/17 Aspirin (Aspirin) 81 Mg Chew, 81 MG PO DAILY for 30 Days, TAB Prov:MESFIN BARBOZA 06/26/16 Alprazolam* (Xanax*) 0.5 Mg Tab, 0.5 MG PO QHS Y for ANXIETY, #20 TAB Prov:MESFIN BARBOZA 06/26/16 Reported Medications Levothyroxine Sodium* (Levothyroxine Sodium*) 50 Mcg Tablet, 50 MCG PO BEFORE BREAKFAST, #30 TAB 06/03/17 Flu Vaccin [id number] 5Yr Up/Pf (Afluria 4937-9301 Syringe) 45 Mcg/0.5 Ml Syringe , 45 MCG IM ONCE 06/03/17 Topiramate* (Topiramate*) 100 Mg Tablet, 100 MG ORAL DAILY, #30 01/13/17 Venlafaxine Hcl* (Effexor XR*) 150 Mg Cap.sr.24h, 300 MG PO QAM, CAP 08/08/14 Gabapentin* (Neurontin*) 300 Mg Capsule, 300 MG PO BID, CAP 08/08/14 Discontinued Reported Medications Topiramate* (Topamax*) 25 Mg Cap.sprink, 25 MG PO DAILY, CAP 06/03/17 Hydrocodone/Acetaminophen ([place] 10-325 Tablet) 1 Each Tablet, 1 EACH PO Q6 Y for PAIN, TAB 06/20/16 Levothyroxine Sodium* (Levothyroxine Sodium*) 25 Mcg Tablet, 25 MCG PO AC BREAKFAST, TAB 03/21/15 Cholecalciferol* (Vitamin D*) 5,000 Unit Tablet, 5000 UNIT PO DAILY, TAB 03/21/15 Discontinued Scripts Ibuprofen* (Motrin*) 600 Mg Tab, 600 MG PO Q6, #20 TAB Prov:NATE DODD NP 04/27/17 Prednisone* (Prednisone*) 20 Mg Tab, 20 MG PO DAILY for 3 Days, TAB Prov:MAXWELL ELLINGTON MD 01/23/17 Ranolazine* (Ranexa*) 500 Mg Tab.sr.12h, 500 MG PO Q12 for 30 Days, TAB Prov:MAXWELL ELLINGTON MD 01/23/17 Lactobacillus Acidophilus* (Lactinex*) 1 Tab Chew, 1 TAB PO BID for 5 Days, TAB Prov:MESFIN BARBOZA 06/26/16 Nebulizer (Fitzeal Disposable Nebulizer) 1 Each Each, 1 EACH MC ONCE Y for SHORTNESS OF BREATH, #1 Prov:MESFIN BARBOZA 06/26/16 Ipratropium-Albuterol (Ipratropium-Albuterol) 0.5-3 Mg/3 Ml Ampul.neb, 3 ML INHALATION Q6, #30 VIAL use every 6hours scheduled for 8 doses and then use as needed only every 4hours for shortness of breath Prov:MESFIN BARBOZA. 06/26/16 Albuterol/Ipratropium* (Combivent Respimat*) 20-100 Mcg/Inh - 4 Gm Aer.w.adap, 1 PUFF INHALATION QID, #1 INHALER Prov:MESFIN BARBOZA. 06/26/16 Hydrochlorothiazide* (Hydrochlorothiazide*) 25 Mg Tab, 25 MG PO DAILY, #30 TAB Prov:DEACON MORALES MD 09/21/15 Allergies Allergies: Coded Allergies: No Known Drug Allergies (Unverified Allergy, Unknown, 06/03/17) PMhx/Soc Past medical history: COPD, depression, hypothyroidism, degenerative lumbar spine disease, CRDS Past surgical history: 2 lumbar spine surgeries, arthroscopic right knee surgery , no recent surgeries Social history: Smokes cigarettes, denies tobacco alcohol or illicit drug History of Surgery: Yes (hysterectomy, spine fusion sx in 2011) Anesthesia Reaction: No Hx Neurological Disorder: No Hx Respiratory Disorders: Yes (Asthma, Chronic Bronchitis) Hx Cardiac Disorders: No Hx Psychiatric Problems: Yes (Depression, Anxiety) Hx Miscellaneous Medical Probl: Yes (asthma, depression, hypothyroidsm, COPD. ) Hx Alcohol Use: Yes (once and a while) Hx Substance Use: No Hx Tobacco Use: Yes Smoking Status: Current every day smoker FmHx Family History: coronary disease, diabetes Physical Exam Vitals Vital Signs Date Time Temp Pulse Resp B/P Pulse Ox O2 Delivery O2 Flow Rate FiO2 06/03/17 21:20 56 16 117/91 100 Room Air 06/03/17 14:39 98.1 84 18 136/84 99 Physical Exam Const: Alert, in mild distress Head: Atraumatic Eyes: Normal Conjunctiva, No pallor, no icterus ENT: Normal External Ears, Nose and Mouth. Mucous membranes moist Neck: Full range of motion..~ No meningismus. No JVD Resp: Clear to auscultation bilaterally, No wheezes, no rales Cardio: Regular rate and rhythm, no murmurs Abd: Soft, non tender, non distended. Skin: No petechiae or rashes Back: No midline or flank tenderness Ext: No cyanosis, or edema. Right foot cool to touch up to mid [place], Slightly greater than left leg.. 2 second cap refill in all toes. 1+ DP and PT pulse. Tenderness to the posterior right knee. No joint effusion. No pain with passive ranging of right knee. No erythema or warmth. Compartments soft. Neur: Awake and alert, Cranial nerves II through XII intact bilaterally, strength and sensation full in 4 extremities. Psych: Normal Mood and Affect Result Diagram: 06/03/17184606/03/171846 Results 24 hrs Laboratory Tests Test 06/03/17 18:47 06/03/17 19:58 White Blood Count 9.410^3/ul Red Blood Count 3.8910^6/ul Hemoglobin 12.8g/dl Hematocrit 37.4% Mean Corpuscular Volume 96.1fl Mean Corpuscular Hemoglobin 32.9pg Mean Corpuscular Hemoglobin Concent 34.2g/dl Red Cell Distribution Width 12.1% Platelet Count 72062^3/UL Mean Platelet Volume 9.4fl Neutrophils % 60.7% Lymphocytes % 30.9% Monocytes % 4.5% Eosinophils % 3.1% Basophils % 0.5% Nucleated Red Blood Cells % 0.0/100WBC Neutrophils # 5.710^3/ul Lymphocytes # 2.910^3/ul Monocytes # 0.410^3/ul Eosinophils # 0.310^3/ul Basophils # 0.110^3/ul Nucleated Red Blood Cells # 0.010^3/ul Prothrombin Time 13.2Sec Prothrombin Time Ratio 1.0 INR International Normalized Ratio 1.00 Activated Partial Thromboplast Time 27.5Sec Sodium Level 140mmol/L Potassium Level 3.9mmol/L Chloride Level 110mmol/L Carbon Dioxide Level 21mmol/L Anion Gap 13 Blood Urea Nitrogen 10mg/dl Creatinine 0.87mg/dl Glucose Level 85mg/dl Calcium Level 9.3mg/dl Total Bilirubin 0.0mg/dl Direct Bilirubin 0.00mg/dl Indirect Bilirubin 0.0mg/dl Aspartate Amino Transf (AST/SGOT) 17IU/L Alanine Aminotransferase (ALT/SGPT) 22IU/L Alkaline Phosphatase 101IU/L Troponin I < 0.012ng/ml Total Protein 7.3g/dl Albumin 4.2g/dl Globulin 3.10g/dl Albumin/Globulin Ratio 1.35 Urine Color YELLOW Urine Clarity CLEAR Urine pH 6.0 Urine Specific [place] 1.014 Urine Ketones NEGATIVEmg/dL Urine Nitrite NEGATIVEmg/dL Urine Bilirubin NEGATIVEmg/dL Urine Urobilinogen NEGATIVEmg/dL Urine Leukocyte Esterase TRACELeu/ul Urine Microscopic RBC 1/HPF Urine Microscopic WBC 1/HPF Urine Bacteria FEW/HPF Urine Hemoglobin NEGATIVEmg/dL Urine Glucose NEGATIVEmg/dL Urine Total Protein NEGATIVEmg/dl Urine Opiates Screen POSITIVE Urine Barbiturates NEGATIVE Urine Amphetamines Screen NEGATIVE Urine Benzodiazepines Screen NEGATIVE Urine Cocaine Screen NEGATIVE Urine Cannabinoids POSITIVE Current Medications Medications (Trade) Dose Ordered Sig/Marnie Route PRN Reason Start Time Stop Time Status Last Admin Dose Admin Aspirin (Aspirin) 162 mg ONCE STAT PO 06/03/17 18:34 06/03/17 18:38 DC 06/03/17 18:57 Acetaminophen/ Hydrocodone Bitart ([place] (10325)) 1 tab ONCE ONCE PO 06/03/17 19:00 06/03/17 19:01 DC 06/03/17 18:57 Procedures/MDM EKG read by me: Time 1427, rate 81 Rhythm: Normal sinus [place]: Normal Intervals: Normal ST-T waves: ST depression with T-wave inversion in inferior and lateral leads Ectopy: No Q-waves: No Impression: ST depression and T-wave inversion in inferior and lateral leads were present on prior EKG of 01/24/2017 and are less pronounced at this time. MDM: Patient is a 51-year-old female with history of chronic pain and recurrent chest pain who presents to the ER with 2 apparently unrelated complaints. She complains of severe pain to the right knee. Serial exams of the right knee are inconsistent. At times she has anterior tenderness and at times posterior tenderness. There is no evidence of joint effusion or warmth to suggest septic joint. She denies trauma. Straight shows no evidence of acute fracture. The right leg was noted to be slightly cool compared with the left and with 1+ DP pulse. Arterial ultrasound showed normal flow. Venous ultrasound showed no evidence of DVT. There is no evidence of infection on exam. Compartments are soft. With regard to the patient's chest pain, the patient has had multiple admissions with workup including a nuclear SPECT test that was unremarkable in June [address] coronary that showed no significant stenosis or disease in January 2017. Patient has chronic EKG changes in inferior and lateral leads that appear less pronounced today. There are no dynamic EKG changes to suggest ischemia. Troponin is negative. There are no features concerning for aortic dissection or pulmonary embolism. The patient is chronically on narcotic pain medications for low back pain. She states that she has a supply at home. I have advised her to take her home [place] and follow-up closely with her PMD in the next 1-2 days. I have advised her to return to the ER for any new or worsening symptoms. Departure Diagnosis: Primary Impression: Acute pain of right knee Additional Impression: Atypical chest pain Condition: ROX aGrza MD Jun 03, 2017 18:48
[2017-06-03] MEDS ORDERED: HYDROCODONE/APAP (10/325) TAB PO ONE (19:00)
[2017-06-03 19:14] LABS: BASOPHIL # 0.1 10^3/ul (0.0-0.1); BASOPHILS % 0.5 % (0.0-2.0); EOSINOPHILS # 0.3 10^3/ul (0.0-0.5); EOSINOPHILS % 3.1 % (0.0-7.0); HEMATOCRIT 37.4 % (37.0-47.0); HEMOGLOBIN 12.8 g/dl (12.0-16.0); LYMPHOCYTES # 2.9 10^3/ul (0.8-2.9); LYMPHOCYTES % 30.9 % (15.0-51.0); MEAN CORPUSCULAR HEMOGLOBIN 32.9 pg (29.0-33.0); MEAN CORPUSCULAR HGB CONC 34.2 g/dl (32.0-37.0); MEAN CORPUSCULAR VOLUME 96.1 fl (82.0-101.0); MEAN PLATELET VOLUME 9.4 fl (7.4-10.4); MONOCYTE # 0.4 10^3/ul (0.3-0.9); MONOCYTES % 4.5 % (0.0-11.0); NEUTROPHIL # 5.7 10^3/ul (1.6-7.5); NEUTROPHILS % 60.7 % (39.0-77.0); PLATELET COUNT 278 10^3/UL (140-415); RED BLOOD COUNT 3.89 10^6/ul (4.20-5.40); RED CELL DISTRIBUTION WIDTH 12.1 % (11.5-14.5); WHITE BLOOD COUNT 9.4 10^3/ul (4.8-10.8)
--- NOTE | 2017-06-03 19:20 | RADRPT ---
PROCEDURE: Ultrasound of the right lower extremity venous system. CLINICAL INDICATION: Right leg pain and swelling, deep venous thrombosis TECHNIQUE: Rizzo scale with and without compression, color doppler, spectral doppler of the venous system of the right lower extremity was performed. Venous augmentation maneuvers were utilized. COMPARISON: 01/08/2015 FINDINGS: Common femoral vein: Patent. Femoral vein: Patent. Popliteal vein: Patent. Calf veins: Patent. No soft tissue abnormalities are identified. IMPRESSION: No evidence of a deep vein thrombosis within the right lower extremity. RPTAT: AADD .Franklyn Ivey MD, MD Date Time Electronically viewed and signed by .Franklyn Ivey MD, MD on 06/03/2017 19:20 .B/
[2017-06-03 19:38] LABS: ALANINE AMINOTRANSFERASE 22 IU/L (13-69); ALBUMIN 4.2 g/dl (3.3-4.9); ALBUMIN/GLOBULIN RATIO 1.35; ALKALINE PHOSPHATASE 101 IU/L (42-121); ANION GAP 13 (8-16); ASPARTATE AMINO TRANSFERASE 17 IU/L (15-46); BLOOD UREA NITROGEN 10 mg/dl (7-20); CALCIUM 9.3 mg/dl (8.4-10.2); CARBON DIOXIDE 21 mmol/L (21-31); CHLORIDE 110 mmol/L (97-110); CREATININE 0.87 mg/dl (0.44-1.00); GLUCOSE 85 mg/dl (70-220); POTASSIUM 3.9 mmol/L (3.5-5.1); SODIUM 140 mmol/L (135-144); TOTAL PROTEIN 7.3 g/dl (6.1-8.1)
--- NOTE | 2017-06-03 19:39 | RADRPT ---
PROCEDURE: XR Chest. CLINICAL INDICATION: Chest pain. TECHNIQUE: Single frontal view. COMPARISON: 01/13/2017. FINDINGS: The lungs are clear. The heart size is normal. There is no pleural effusion or pneumothorax. There are old healed right rib fractures. IMPRESSION: 1. Old healed right rib fractures. 2. Otherwise normal chest radiograph. RPTAT: QQ .Kobe Gonzalez MD, MD Date Time Electronically viewed and signed by .Kobe Gonzalez MD, on 06/03/2017 19:38 .R/
--- NOTE | 2017-06-03 19:39 | RADRPT ---
PROCEDURE: XR Knee. CLINICAL INDICATION: Right knee pain TECHNIQUE: 3 images of the right knee are available for review. COMPARISON: None available FINDINGS: There is no acute fracture. Alignment is normal. Joint spaces are preserved. Tiny tricompartmental osteophytes are noted. There is a small suprapatel lar enthesophyte. There is a chronic-appearing 3 mm osseous body superior to the medial tibial spine . Soft tissues are grossly unremarkable. IMPRESSION: 1. No radiographic evidence of acute osseous abnormality. 2. Chronic-appearing 3 mm osseous body along the superior margin of the medial tibial spine. RPTAT: UU .Virgil Mays MD, MD Date Time Electronically viewed and signed by .Virgil Mays MD, on 06/03/2017 19:38 .K/
[2017-06-03 19:53] LABS: TROPONIN-I < 0.012 ng/ml (0.00-0.12)
--- NOTE | 2017-06-03 19:57 | RADRPT ---
PROCEDURE: Doppler US right lower extremity arteries. CLINICAL INDICATION: Right leg pain. Claudication that interferes significantly with the patient' s lifestyle. TECHNIQUE: Multiple longitudinal and transverse images of the right lower extremity arteries were obtained with brown scale, pulsed Doppler and color Doppler imaging. COMPARISON: No prior studies are available for comparison. FINDINGS: Location Right CFA95 cm/sec SLFH848 cm/sec EBQU628 cm/sec DSFA64 cm/sec POP42 cm/sec PTA66 cm/sec DPA37 cm/sec There is normal triphasic flow throughout the arterial system of the right lower extremity. IMPRESSION: 1. Normal right lower extremity arterial Doppler. RPTAT: QQ .Kobe Gonzalez MD, MD Date Time Electronically viewed and signed by .Kobe Gonzalez MD, on 06/03/2017 19:56 .R/
[2017-06-03 20:43] LABS: ADD UMIC YES; UR ASCORBIC ACID NEGATIVE (NEGATIVE); UR BACTERIA FEW /HPF (NONE SEEN); UR BILIRUBIN (Dip) NEGATIVE (NEGATIVE); UR BLOOD (Dip) NEGATIVE (NEGATIVE); UR CLARITY CLEAR (CLEAR); UR COLOR YELLOW (YELLOW); UR GLUCOSE (Dip) NEGATIVE (NEGATIVE); UR KETONES (Dip) NEGATIVE (NEGATIVE); UR LEUKOCYTE ESTERASE (Dip) TRACE Leu/ul (NEGATIVE); UR NITRITE (Dip) NEGATIVE (NEGATIVE); UR RBC 1 /HPF (0-5); UR SPECIFIC GRAVITY (Dip) 1.014 (1.003-1.030); UR TOTAL PROTEIN (Dip) NEGATIVE (NEGATIVE); UR UROBILINOGEN (Dip) NEGATIVE (NEGATIVE)
[2017-06-03] MEDS ORDERED: FLU45SYR IM (20:51)
[2017-06-03] MEDS ORDERED: LEVO50TA74 PO (20:52)
[2017-06-03] MEDS ORDERED: TOPI25CA PO (20:53)
[2017-06-03 21:03] LABS: BARBITURATES NEGATIVE (NEGATIVE); BENZODIAZEPINES NEGATIVE (NEGATIVE); CANNABINOIDS POSITIVE (NEGATIVE); COCAINE NEGATIVE (NEGATIVE); OPIATES POSITIVE (NEGATIVE)
[2017-06-03 21:20] VITALS: BP 117/91; PULSE 56; RESP 16
[2017-06-03 22:24] LABS: PROTIME 13.2 Sec (12.2-14.2)
[2017-06-03 22:25] LABS: PARTIAL THROMBOPLASTIN TIME 27.5 Sec (25.0-35.0)
== END 2017-06-03 21:20 | disposition home or self-care (01) ==
LOC: E/R 14:36
DX: M25.561 Pain in right knee (principal); R07.89 Other chest pain; J44.9 Chronic obstructive pulmonary disease, unspecified; E03.9 Hypothyroidism, unspecified; F17.210 Nicotine dependence, cigarettes, uncomplicated; R40.2142 Coma scale, eyes open, spontaneous, at arrival to emergency department; R40.2252 Coma scale, best verbal response, oriented, at arrival to emergency department; R40.2362 Coma scale, best motor response, obeys commands, at arrival to emergency department; Z79.82 Long term (current) use of aspirin
CPT/HCPCS: 36415; 71010; 73562; 80053; 80307; 81001; 84484; 85025; 85610; 85730; 93005; 93926; 93971; Z7502; Z7610

== ENCOUNTER 2017-06-28 08:10 | Emergency (ER) | payer OTHER ==
[~2017-06-28] VITALS: Ht 167.6 cm; Wt 74.0 kg
[~2017-06-28 08:10] MED LIST changes: -CHOL50009 PO; +FLU45SYR IM; -HYDR-902 PO; -HYDR25TA6 PO; -IBUP-1542 PO; -IPRA3AMP INHALATION; -IPRA4AER INHALATION; -LACTINEX PO; -LEVO25TA53 PO; +LEVO50TA74 PO; -NEBU1KIT17 MC; -PRED20TA PO; -RANO500T2 PO
[2017-06-28 08:12] VITALS: Ht 167.6 cm; Wt 74.0 kg
[2017-06-28] MEDS ORDERED: ALBUTEROL 0.083% (NEB) 2.5 MG/3 ML AMP HHN STA (09:02)
[2017-06-28] MEDS ORDERED: ONDANSETRON 4 MG INJ IM STA (09:02)
[2017-06-28] MEDS ORDERED: ALBU8.5H3 INH (09:07)
[2017-06-28] MEDS ORDERED: ONDA4TAB8 PO (09:07)
[2017-06-28] MEDS ORDERED: NAPR-260 PO (09:07)
[2017-06-28] MEDS ORDERED: OXYCODONE/ACETAMINOPHEN (5/325) TAB PO ONE (09:30)
--- NOTE | 2017-06-28 09:58 | RADRPT ---
PROCEDURE: XR Chest. CLINICAL INDICATION: Shortness of breath TECHNIQUE: Single AP view of the chest were obtained COMPARISON: 06/19/2016 and 09/21/2015 FINDINGS: The heart and mediastinum are within normal limits. The pulmonary vasculature are unremarkable. The aorta demonstrates atherosclerotic calcifications. There is faint nodular opacities seen in the right inferior lower thorax which is stable from prior exam, however it is not present on 09/21/2015 which is indeterminate. There is no other lung opacity with no evidence of effusion or pneumothorax. Degenerative changes are seen within the thoracic sp ine. There is no acute osseous abnormality. IMPRESSION: Nodular opacity in the right lower thorax is stable from prior exam, however appears new from 2015. This can be better assessed with a CT of the thorax. RPTAT: AA .Caesar uMrrell MD, Date Time Electronically viewed and signed by .Caesar Murrell MD, on 06/28/2017 09:58 .Jennifer/
--- NOTE | 2017-06-28 10:13 | ERD ---
ER Documentation Chief Complaint Chief Complaint pt bib self with c/o chest pain starting yesterday with cough , pressure HPI 51-year-old woman with a history of chronic chest pain and chronic pain syndrome presents with sharp nonradiating none exertional chest pain with cough beginning yesterday, she also complains of nausea and a few episodes of diarrhea. She denies fevers or chills, no calf or leg swelling, no shortness, no headache or blurry vision. ROS All systems reviewed and are negative except as per history of present illness. Medications Home Meds Active Scripts Naproxen* (Naprosyn*) 500 Mg Tablet, 500 MG PO BID Y for PAIN AND/OR INFLAMMATION, #30 TAB Prov:KARLI TIERNEY MD 06/28/17 Ondansetron Hcl* (Zofran*) 4 Mg Tablet, 4 MG PO Q8H Y for NAUSEA AND/OR VOMITING , #15 TAB Prov:KARLI TIERNEY MD 06/28/17 Albuterol Sulfate* (Proair HFA*) 8.5 Gm Hfa.aer.ad, 2 PUFF INH Q4 for COUGH, #1 INHALER Prov:KARLI TIERNEY MD 06/28/17 Aspirin (Aspirin) 81 Mg Chew, 81 MG PO DAILY for 30 Days, TAB Prov:MESFIN BARBOZA 06/26/16 Alprazolam* (Xanax*) 0.5 Mg Tab, 0.5 MG PO QHS Y for ANXIETY, #20 TAB Prov:MESFIN BARBOZA 06/26/16 Reported Medications Levothyroxine Sodium* (Levothyroxine Sodium*) 50 Mcg Tablet, 50 MCG PO BEFORE BREAKFAST, #30 TAB 06/03/17 Flu Vaccin [id number] 5Yr Up/Pf (Afluria [id number] Syringe) 45 Mcg/0.5 Ml Syringe , 45 MCG IM ONCE 06/03/17 Topiramate* (Topiramate*) 100 Mg Tablet, 100 MG ORAL DAILY, #30 01/13/17 Venlafaxine Hcl* (Effexor XR*) 150 Mg Cap.sr.24h, 300 MG PO QAM, CAP 08/08/14 Gabapentin* (Neurontin*) 300 Mg Capsule, 300 MG PO BID, CAP 08/08/14 Discontinued Scripts Cephalexin* (Keflex*) 500 Mg Capsule, 500 MG PO QID for 7 Days, CAP Prov:BETTE MONZON MD 05/25/17 Sulfamethoxazole/Trimethoprim* (Bactrim Ds* Tablet) 1 Each Tablet, 1 TAB PO BID for 7 Days, #14 TAB Prov:BETTE MONZON MD 05/25/17 Hydrocodone/Acetaminophen ([place] 5-325 Tablet) 1 Each Tablet, 1 TAB PO Q6H Y for PAIN, #7 TAB Prov:BETTE MONZON MD 05/25/17 Salmeterol Xinaf/Fluticasone* (Advair*) 250-50 Diskus Inhaler, 1 INH INH BID for 30 Days Prov:MAXWELL ELLINGTON MD 01/23/17 Allergies Allergies: Coded Allergies: No Known Drug Allergies (Unverified Allergy, Unknown, 06/28/17) PMhx/Soc Chronic pain syndrome, depression, COPD, back pain, hypothyroidism, recent arterial and venous Doppler ultrasound of the right lower extremity which ruled out ischemia stenosis and thrombus. Recent echocardiogram revealing left ventricular ejection fraction of 65%, recent cardiac perfusion stress imaging which was normal, hypertension History of Surgery: Yes (hysterectomy, spine fusion sx in 2011) Anesthesia Reaction: No Hx Neurological Disorder: No Hx Respiratory Disorders: Yes (Asthma, Chronic Bronchitis) Hx Cardiac Disorders: No Hx Psychiatric Problems: Yes (Depression, Anxiety) Hx Miscellaneous Medical Probl: Yes (asthma, depression, hypothyroidsm, COPD. ) Hx Alcohol Use: Yes (once and a while) Hx Substance Use: No Hx Tobacco Use: Yes FmHx Family History: No diabetes Physical Exam Vitals Vital Signs Date Time Temp Pulse Resp B/P Pulse Ox O2 Delivery O2 Flow Rate FiO2 06/28/17 10:42 78 20 130/78 99 Room Air 06/28/17 09:27 73 16 98 21 06/28/17 08:12 99.3 73 16 122/65 98 Physical Exam GENERAL: Well-developed, well-nourished, well-hydrated, in no apparent distress , looks nontoxic in appearance HEENT: Moist mucous membranes, pink conjunctiva, no cervical spine tenderness or step-off deformities, no goiter, no jaundice or icterus, extraocular movements intact without pain. No submandibular induration, and no pharyngeal erythema NEURO: Alert and oriented 3, cranial nerves II through XII intact bilaterally, pupils equal round reactive to light, no focal deficits or facial asymmetry, sensation intact distally Strength 5/5 in upper and lower extremities bilaterally CARDIAC: Regular rate and rhythm, no murmurs rubs or gallops LUNGS: Clear bilaterally no wheezing crackles or stridor ABDOMEN: Soft nontender, no guarding, no rigidity, no rebound, no psoas sign no obturator sign. Normoactive bowel sounds SKIN: Warm and dry to touch, no abrasions, contusions, or hematomas, no lacerations, no ecchymosis, no target lesions, and without ulcers EXTREMITIES: No clubbing cyanosis or edema, calves are bilaterally symmetrical, no Homans sign, no popliteal cord sign. Distal pulses equal and bilateral PSYCH: Normal affect without agitation or irritability Results 24 hrs Laboratory Tests Test 06/28/17 09:05 Troponin I < 0.012ng/ml Current Medications Medications (Trade) Dose Ordered Sig/Marnie Route PRN Reason Start Time Stop Time Status Last Admin Dose Admin Ondansetron HCl (Zofran Inj) 4 mg ONCE STAT IM 06/28/17 09:02 06/28/17 09:04 DC 06/28/17 09:12 Oxycodone/ Acetaminophen (Percocet (5/ 325)) 1 tab ONCE ONCE PO 06/28/17 09:30 06/28/17 09:31 DC 06/28/17 09:12 Albuterol (Proventil 0.083% (Neb)) 5 mg ONCE STAT HHN 06/28/17 09:02 06/28/17 09:04 DC 06/28/17 09:26 Procedures/MDM Patient was placed on cardiac/vascular sonographer rhythm strip revealed a sinus bradycardia at about 60 bpm. Patient was afebrile. One view chest x-ray performed, read by me, no acute infiltrates, no pneumothorax, no air under the diaphragm. Unremarkable chest x-ray. I administered albuterol 5 mg via nebulizer for cough, Zofran 4 mg IM 1 for nausea although she had no episodes of vomiting while here, and Percocet 1 tablet p.o. for complaints of pain. EKG performed, read by me: Sinus bradycardia 58 bpm, normal sinus rhythm, normal axis, diffuse nonspecific T-wave inversions, narrow QRS complex, with good R-wave progression in precordial leads. Troponin was negative. Differential diagnoses considered, included but not limited to acute coronary syndrome, pulmonary embolism, aortic dissection, abdominal aortic aneurysm, sepsis, stroke, meningitis, encephalitis, pneumonia, appendicitis, cholecystitis , bowel obstruction, pyelonephritis, nephrolithiasis, cystitis, as well as metabolic, hematologic, and electrolyte abnormalities. As well as abscess, cellulitis, fractures, and dislocations. Patient feels much better at this time, and vital signs are normal, symptoms have improved. I did give strict instructions to return to the ED if symptoms continue or worsen, patient will otherwise follow-up with primary care physician. Patient understood instructions and agreed to plan. Disclaimer: Inadvertent spelling and grammatical errors are likely due to EHR/ dictation software use and do not reflect on the overall quality of patient care. Also, please note that the electronic time recorded on this note does not necessarily reflect the actual time of the patient encounter. Departure Diagnosis: Primary Impression: Chest pain Chest pain type: unspecified Qualified Code: R07.9 - Chest pain, unspecified type Additional Impressions: URI (upper respiratory infection) URI type: acute nasopharyngitis (common cold) Qualified Code: J00 - Acute nasopharyngitis Chronic pain Chronic pain type: chronic pain syndrome Qualified Code: G89.4 - Chronic pain syndrome Condition: Good Patient Instructions: Chest Pain, Uncertain Cause, Diarrhea, Unk Cause (Adult) Report Pendg, Uri, Viral W/ Wheezing (Adult) Referrals: [facility] (PCP) KARLI TIERNEY MD Jun 28, 2017 10:13
[2017-06-28 10:42] VITALS: BP 130/78; PULSE 78; RESP 20
== END 2017-06-28 10:43 | disposition home or self-care (01) ==
LOC: E/R 08:10
DX: R07.9 Chest pain, unspecified (principal); R40.2342 Coma scale, best motor response, flexion withdrawal, at arrival to emergency department; J00 Acute nasopharyngitis [common cold]; G89.4 Chronic pain syndrome; J44.9 Chronic obstructive pulmonary disease, unspecified; E03.9 Hypothyroidism, unspecified; I10 Essential (primary) hypertension; J45.909 Unspecified asthma, uncomplicated; R40.2142 Coma scale, eyes open, spontaneous, at arrival to emergency department; R40.2252 Coma scale, best verbal response, oriented, at arrival to emergency department; R05 Cough; Z79.82 Long term (current) use of aspirin; Z87.891 Personal history of nicotine dependence
CPT/HCPCS: 71010; 84484; 94664; 96372; J2405; Z7502; Z7610

== ENCOUNTER 2017-09-20 01:22 | Inpatient (IN) | END 2017-09-21 18:19 | disposition home or self-care (01) | DRG 310 ==

== ENCOUNTER 2017-09-29 16:40 | Emergency (ER) | END 2017-09-29 19:03 | disposition home or self-care (01) ==

== ENCOUNTER 2018-09-21 00:37 | Emergency (ER) | payer OTHER ==
[~2018-09-21] VITALS: Ht 167.6 cm; Wt 64.5 kg
[~2018-09-21 00:37] MED LIST changes: -ADV25050 INH; +ALBU8.5H8 INH; +ASPI-831 PO; -ASPI81TA3 PO; -CEPH-443 PO; -FLU45SYR IM; -HYDR-906 PO; +LEVO50TA7 PO; -LEVO50TA74 PO; +NAPR-985 PO; +NICO-546 TD; +ONDA4TAB8 PO; -SULF1TAB31 PO; -TOPI-25 ORAL; +TOPI100T11 ORAL; +TRIA15CR55 TOP
[2018-09-21 00:47] VITALS: Ht 167.6 cm; Wt 64.5 kg
[2018-09-21] MEDS ORDERED: ALBUTEROL 0.083% (NEB) 2.5 MG/3 ML AMP NEB STA (03:04)
[2018-09-21] MEDS ORDERED: IPRATROPIUM (NEB) 0.5 MG/2.5 ML AMP NEB STA (03:04)
[2018-09-21] MEDS ORDERED: ONDANSETRON 4 MG INJ IV STA (05:14)
[2018-09-21] MEDS ORDERED: morphine 4 MG/ML VIAL IV STA (05:14)
[2018-09-21] MEDS ORDERED: LORA1TAB PO (05:48)
[2018-09-21 06:00] VITALS: BP 117/67; PULSE 70; RESP 18
--- NOTE | 2018-09-30 23:54 | ERD ---
ER Documentation Chief Complaint Chief Complaint chest pain x 2 days, cough x 1 week HPI This is a 52-year-old female with chest pain for 3 days and cough for 1 week. She said the cough is mildly productive. Chest pain started mainly only post cough. Mild to moderate intensity no exacerbating alleviating factors. No nausea no vomiting no chills. No other current complaints. ROS All systems reviewed and are negative except as per history of present illness. Medications Home Meds Active Scripts Lorazepam* (Lorazepam*) 1 Mg Tablet, 1 MG PO Q8H PRN for ANXIETY, #10 TAB Prov:OMARI SMITH 09/21/18 Triamcinolone Acetonide* (Kenalog*) 0.1%-15GM Cr, 1 APPLIC TOP BID for 7 Days, #1 TUB Prov:CHICHI ALSTON MD 09/29/17 Nicotine* (Nicotine* Patch) 21 mg/day Patch, 1 EACH TD DAILY for 30 Days, #30 PATCH 5 Refills Prov:ROX COLLINS MD 09/21/17 Naproxen* (Naprosyn*) 500 Mg Tablet, 500 MG PO BID PRN for PAIN AND/OR INFLAMMATION, #30 TAB Prov:KARLI TIERNEY MD 06/28/17 Ondansetron Hcl* (Zofran*) 4 Mg Tablet, 4 MG PO Q8H PRN for NAUSEA AND/OR VOMITING, #15 TAB Prov:KARLI TIERNEY MD 06/28/17 Albuterol Sulfate* (Proair HFA*) 8.5 Gm Hfa.aer.ad, 2 PUFF INH Q4 for COUGH, #1 INHALER Prov:KARLI TIERNEY MD 06/28/17 Aspirin (Aspirin) 81 Mg Chew, 81 MG PO DAILY for 30 Days, TAB Prov:MESFIN BARBOZA 06/26/16 Alprazolam* (Xanax*) 0.5 Mg Tab, 0.5 MG PO QHS PRN for ANXIETY, #20 TAB Prov:MESFIN BARBOZA 06/26/16 Reported Medications Levothyroxine Sodium* (Levothyroxine Sodium*) 50 Mcg Tablet, 50 MCG PO BEFORE BREAKFAST, #30 TAB 06/03/17 Topiramate* (Topiramate*) 100 Mg Tablet, 100 MG ORAL DAILY, #30 01/13/17 Venlafaxine Hcl* (Effexor XR*) 150 Mg Cap.sr.24h, 300 MG PO QAM, CAP 08/08/14 Gabapentin* (Neurontin*) 300 Mg Capsule, 300 MG PO BID, CAP 08/08/14 Allergies Allergies: Coded Allergies: No Known Drug Allergies (Unverified Allergy, Unknown, 09/19/17) PMhx/Soc History of Surgery: Yes (Hysterectomy,Spine Fusion 2011,Ortho Surg,Thoracostomy) Anesthesia Reaction: No Hx Neurological Disorder: No Hx Respiratory Disorders: Yes (Asthma) Hx Cardiac Disorders: Yes (HTN) Hx Psychiatric Problems: Yes (Depression,Anxiety) Hx Miscellaneous Medical Probl: Yes (CRP Syndrome) Hx Alcohol Use: Yes (Formerly ETOH) Hx Substance Use: Yes (Med Marijuana) Hx Tobacco Use: Yes (3 sticks/day) Smoking Status: Current every day smoker Physical Exam Physical Exam Const: No acute distress Head: Atraumatic Eyes: Normal Conjunctiva ENT: Normal External Ears, Nose and Mouth. Neck: Full range of motion. No meningismus. Resp: Clear to auscultation bilaterally Cardio: Regular rate and rhythm, no murmurs Abd: Soft, non tender, non distended. Normal bowel sounds Skin: No petechiae or rashes Back: No midline or flank tenderness Ext: No cyanosis, or edema Neur: Awake and alert Psych: Normal Mood and Affect Results 24 hrs Laboratory Tests Test 09/21/18 04:15 White Blood Count 10.0 10^3/ul Red Blood Count 3.69 10^6/ul Hemoglobin 12.2 g/dl Hematocrit 35.2 % Mean Corpuscular Volume 95.4 fl Mean Corpuscular Hemoglobin 33.1 pg Mean Corpuscular Hemoglobin Concent 34.7 g/dl Red Cell Distribution Width 12.0 % Platelet Count 230 10^3/UL Mean Platelet Volume 9.7 fl Immature Granulocytes % 0.300 % Neutrophils % 52.1 % Lymphocytes % 39.2 % Monocytes % 5.5 % Eosinophils % 2.3 % Basophils % 0.6 % Nucleated Red Blood Cells % 0.0 /100WBC Immature Granulocytes # 0.030 10^3/ul Neutrophils # 5.2 10^3/ul Lymphocytes # 3.9 10^3/ul Monocytes # 0.6 10^3/ul Eosinophils # 0.2 10^3/ul Basophils # 0.1 10^3/ul Nucleated Red Blood Cells # 0.0 10^3/ul Sodium Level 142 mmol/L Potassium Level 3.6 mmol/L Chloride Level 107 mmol/L Carbon Dioxide Level 24 mmol/L Anion Gap 11 Blood Urea Nitrogen 22 mg/dl Creatinine 0.72 mg/dl Est Glomerular Filtrat Rate mL/min > 60 mL/min Glucose Level 113 mg/dl Calcium Level 9.6 mg/dl Troponin I < 0.012 ng/ml Current Medications Medications Dose Sig/Marnie Start Time Status Last (Trade) Ordered Route PRN Stop Time Admin Dose Reason Admin Albuterol 5 mg ONCE STAT 09/21/18 DC 09/21/18 (Proventil NEB 03:04 03:20 0.083% (Neb)) 09/21/18 03:06 Ipratropium 0.5 mg ONCE STAT 09/21/18 DC 09/21/18 [place] NEB 03:04 03:20 (Atrovent 09/21/18 03:06 0.02% (Neb)) Morphine 4 mg ONCE STAT 09/21/18 DC 09/21/18 Sulfate IV 05:14 05:21 (morphine) 09/21/18 05:15 Ondansetron 4 mg ONCE STAT 09/21/18 DC 09/21/18 HCl (Zofran IV 05:14 05:20 Inj) 09/21/18 05:15 Procedures/MDM EKG: Rate/Rhythm: [Normal Sinus Rhythm] QRS, ST, T-waves: [No changes consistent w/ acute ischemia] Impression: [No evidence of ischemia or arrhythmia] Chest X-ray 1V Interpreted by me: Soft Tissue: No acute abnormaliti es Bones: No acute abnormalities Mediastinum/Cardiac Silhouette/Lungs: [No acute abnormalities] Medical decision making: Patient's thoracic symptoms have stabilized while in the department and are stable for outpatient follow up. Exam and work up not consistent w/ ischemia, arrhythmia, PE or dissection. Departure Diagnosis: Primary Impression: Chest pain Chest pain type: unspecified Qualified Codes: R07.9 - Chest pain, unspecified Condition: Stable Patient Instructions: Chest Pain, Uncertain Cause OMARI SMITH Sep 30, 2018 23:53
== END 2018-09-21 06:00 | disposition home or self-care (01) ==
LOC: E/R 00:37
DX: R07.9 Chest pain, unspecified (principal); I10 Essential (primary) hypertension; J45.901 Unspecified asthma with (acute) exacerbation; F17.210 Nicotine dependence, cigarettes, uncomplicated; Z79.82 Long term (current) use of aspirin
CPT/HCPCS: 71045; 80048; 84484; 85025; 93005; 94664; J2270; J2405; Z7610; 96374; 96375

== ENCOUNTER 2018-11-14 10:30 | Emergency (ER) | payer OTHER ==
[~2018-11-14] VITALS: Ht 167.6 cm; Wt 64.1 kg
[~2018-11-14 10:30] MED LIST changes: +LORA1TAB PO
[2018-11-14 10:31] VITALS: BP 161/76; PULSE 74; RESP 18; Ht 167.6 cm; Wt 64.1 kg
[2018-11-14] MEDS ORDERED: KETOROLAC 30 MG INJ IM STA (12:17)
[2018-11-14] MEDS ORDERED: IBUPROFEN 600 MG TAB PO ONE (12:30)
--- NOTE | 2018-11-14 12:43 | ERD ---
ER Documentation Chief Complaint Chief Complaint leg pain and swelling HPI 53-year-old female with medical history of depression and anxiety, chronic pain previously on methadone followed by pain management who presents with a 2-day complaint of right knee pain. Denies any recent injury or fall. States she has noticed some swelling to her right knee but no erythema. She follows with pain management frequently last seen November 02, 2018. Reports she takes [place] at home as well as medical marijuana. Has tried [place] and states that this did not alleviate her pain. She otherwise denies chest pain, shortness of breath, fever, chills, nausea vomiting, abdominal pain, urinary symptoms. At time of exam patient recorded requesting Dilaudid medication. States when she visited ER in September she got Dilaudid as well as morphine. ROS All systems reviewed and are negative except as per history of present illness. Medications Home Meds Active Scripts Oxycodone HCl/Acetaminophen (Percocet 5-325 mg Tablet) 1 Each Tablet, 1 EACH PO Q6 for 1 Day, TAB Prov:HUY GUTHRIE PA-C 11/14/18 Lorazepam* (Lorazepam*) 1 Mg Tablet, 1 MG PO Q8H PRN for ANXIETY, #10 TAB Prov:OMARI SMITH 09/21/18 Triamcinolone Acetonide* (Kenalog*) 0.1%-15GM Cr, 1 APPLIC TOP BID for 7 Days, #1 TUB Prov:CHICHI ALSTON MD 09/29/17 Nicotine* (Nicotine* Patch) 21 mg/day Patch, 1 EACH TD DAILY for 30 Days, #30 PATCH 5 Refills Prov:ROX COLLINS MD 09/21/17 Naproxen* (Naprosyn*) 500 Mg Tablet, 500 MG PO BID PRN for PAIN AND/OR INFLAMMATION, #30 TAB Prov:KARLI TIERNEY MD 06/28/17 Ondansetron Hcl* (Zofran*) 4 Mg Tablet, 4 MG PO Q8H PRN for NAUSEA AND/OR VOMITING, #15 TAB Prov:KARLI TIERNEY MD 06/28/17 Albuterol Sulfate* (Proair HFA*) 8.5 Gm Hfa.aer.ad, 2 PUFF INH Q4 for COUGH, #1 INHALER Prov:KARLI TIERNEY MD 06/28/17 Aspirin (Aspirin) 81 Mg Chew, 81 MG PO DAILY for 30 Days, TAB Prov:MESFIN BARBOZA M. 06/26/16 Alprazolam* (Xanax*) 0.5 Mg Tab, 0.5 MG PO QHS PRN for ANXIETY, #20 TAB Prov:MESFIN BARBOZA M. 06/26/16 Reported Medications Levothyroxine Sodium* (Levothyroxine Sodium*) 50 Mcg Tablet, 50 MCG PO BEFORE BREAKFAST, #30 TAB 06/03/17 Topiramate* (Topiramate*) 100 Mg Tablet, 100 MG ORAL DAILY, #30 01/13/17 Venlafaxine Hcl* (Effexor XR*) 150 Mg Cap.sr.24h, 300 MG PO QAM, CAP 08/08/14 Gabapentin* (Neurontin*) 300 Mg Capsule, 300 MG PO BID, CAP 08/08/14 Allergies Allergies: Coded Allergies: No Known Drug Allergies (Unverified Allergy, Unknown, 09/19/17) PMhx/Soc History of Surgery: Yes (Hysterectomy,Spine Fusion 2011,Ortho Surg,Thoracostomy) Anesthesia Reaction: No Hx Neurological Disorder: No Hx Respiratory Disorders: Yes (Asthma) Hx Cardiac Disorders: Yes (HTN) Hx Psychiatric Problems: Yes (Depression,Anxiety) Hx Miscellaneous Medical Probl: Yes (CRP Syndrome) Hx Alcohol Use: Yes (Formerly ETOH) Hx Substance Use: Yes (Med Marijuana) Hx Tobacco Use: Yes (3 sticks/day) Smoking Status: Current every day smoker FmHx Family History: No diabetes, No coronary disease, No other Physical Exam Vitals Vital Signs Date Temp Pulse Resp B/P (MAP) Pulse Ox O2 O2 Flow FiO2 Time Delivery Rate 11/14/18 98.2 74 18 161/76 100 10:31 (104) Physical Exam Const: No acute distress Head: Atraumatic Neck: Full range of motion. No meningismus. Resp: Clear to auscultation bilaterally Cardio: Regular rate and rhythm, no murmurs Abd: Soft, non tender, non distended. Normal bowel sounds Back: No midline or flank tenderness Ext: R knee no edema, no erythema, full ROM, pt states pain on ranging, no signs of injury, distal pulses present Neur: Awake and alert Psych: anxious, normal mood and affect Results 24 hrs Current Medications Medications Dose Sig/[place] Start Time Status Last (Trade) Ordered Route PRN Stop Time Admin Dose Reason Admin Ketorolac 30 mg ONCE STAT 11/14/18 DC 11/14/18 Tromethamine IM 12:17 11/14/18 12:26 (Toradol) 12:19 Ibuprofen 600 mg ONCE ONCE 11/14/18 DC 11/14/18 (Motrin) PO 12:30 11/14/18 12:26 12:31 Procedures/MDM I discussed the patient's recurrent pain issues with her. I emphasized that my training was in the treatment of acute pain, that her physical exam here is quite reassuring, and that definitive treatment of chronic pain is not the role of the emergency department. I compassionately explained to patient that I felt providing opiate medications from the emergency department was counterproductive in that this may cause or exacerbate tolerance, acute overdose, physiological or psychological dependence, or withdrawal. We discussed that opiate use in the management of chronic pain is best managed by a single practitioner, such as a primary care provider or a pain specialist. We discussed adjunctive therapies such as heat, ice, and exercise, as well as non-opiate medications such as acetaminophen, NSAIDs, antidepressants, gabapentin, and pregabalin. I reiterated to her that the most effective management of her chronic pain involves a multimodal approach coordinated by pain management and her primary care provider and often includes physical therapy, cognitive behavioral therapy, and referrals to practitioners such as anesthesiologists trained in chronic pain management. Ed course: Toradol Plan: Follow up with pain management and PMD. Percocet 3 tabs Departure Diagnosis: Primary Impression: Knee pain, chronic Condition: Stable Patient Instructions: Chronic Pain Referrals: [facility] HUY GUTHRIE PA-C Nov 14, 2018 12:42 CHICHI CUTLER DO Nov 17, 2018 20:14
[2018-11-14] MEDS ORDERED: OXYC-279 PO (12:53)
== END 2018-11-14 13:05 | disposition home or self-care (01) ==
LOC: FTE 10:30
DX: M25.561 Pain in right knee (principal); I10 Essential (primary) hypertension; J45.909 Unspecified asthma, uncomplicated; F17.210 Nicotine dependence, cigarettes, uncomplicated; Z79.82 Long term (current) use of aspirin
CPT/HCPCS: 96372; J1885; Z7502; Z7610

== ENCOUNTER 2019-01-15 11:24 | Emergency (ER) | payer OTHER ==
[~2019-01-15] VITALS: Ht 167.6 cm; Wt 60.4 kg
[~2019-01-15 11:24] MED LIST changes: +OXYC-279 PO
[2019-01-15 11:27] VITALS: Ht 167.6 cm; Wt 60.4 kg
[2019-01-15] MEDS ORDERED: ONDANSETRON 4 MG INJ IV STA (11:44)
[2019-01-15] MEDS ORDERED: SOD CHLORIDE 0.9% 1,000 ML IV STA (11:44)
[2019-01-15] MEDS ORDERED: GABA300C16 PO (12:19)
[2019-01-15] MEDS ORDERED: ASPI-817 PO (12:20)
[2019-01-15] MEDS ORDERED: LEVO50TA7 PO (12:20)
[2019-01-15] MEDS ORDERED: VENL150C94 PO (12:22)
[2019-01-15] MEDS ORDERED: TOPI100T11 PO (12:22)
[2019-01-15] MEDS ORDERED: HYDR-3980 PO (12:23)
[2019-01-15] MEDS ORDERED: HYDROmorphONE 0.5 MG/0.5 ML SYG IV STA (13:33)
--- NOTE | 2019-01-15 13:43 | ERD ---
ER Documentation Chief Complaint Chief Complaint nausea, diarrhea , abdominal pain x 4 days; light headedness HPI 53 year old female presents to the emergency department complaining of nausea diarrhea and abdominal pain. Patient has a history of chronic pain. She states that she is having nonspecific abdominal pain, nonspecific chest pain, nonspecific pain in her neck and her bones. These all seem to be related to her chronic pain. She is unclear about the details about what is changed or what is different. She reports no fevers or chills. She does report that she is having nausea with no emesis and crushable loose stool with no melena or blood in her stool. ROS All systems reviewed and are negative except as per history of present illness. Medications Home Meds Reported Medications Hydrocodone/Acetaminophen ([place] 10-325 Tablet) 1 Each Tablet, 1 EACH PO QID, T AB 01/15/19 Topiramate* (Topiramate*) 100 Mg Tablet, 100 MG PO DAILY, TAB 01/15/19 Venlafaxine Hcl* (Venlafaxine Hcl ER*) 150 Mg Cap.er.24h, 300 MG PO QHS, CAP 01/15/19 Aspirin* (Aspirin* EC) 81 Mg Tablet.dr, 81 MG PO DAILY, TAB 01/15/19 Levothyroxine Sodium* (Levothyroxine Sodium*) 50 Mcg Tablet, 50 MCG PO BEFORE BREAKFAST, #30 TAB 01/15/19 Gabapentin* (Gabapentin*) 300 Mg Capsule, 300 MG PO DAILY, #60 CAP 01/15/19 Discontinued Reported Medications Levothyroxine Sodium* (Levothyroxine Sodium*) 50 Mcg Tablet, 50 MCG PO BEFORE BREAKFAST, #30 TAB 06/03/17 Topiramate* (Topiramate*) 100 Mg Tablet, 100 MG ORAL DAILY, #30 01/13/17 Venlafaxine Hcl* (Effexor XR*) 150 Mg Cap.sr.24h, 300 MG PO QAM, CAP 08/08/14 Gabapentin* (Neurontin*) 300 Mg Capsule, 300 MG PO BID, CAP 08/08/14 Discontinued Scripts Oxycodone HCl/Acetaminophen (Percocet 5-325 mg Tablet) 1 Each Tablet, 1 EACH PO Q6 for 1 Day, TAB Prov:HUY GUTHRIE PA-C 11/14/18 Lorazepam* (Lorazepam*) 1 Mg Tablet, 1 MG PO Q8H PRN for ANXIETY, #10 TAB Prov:OMARI SMITH 09/21/18 Triamcinolone Acetonide* (Kenalog*) 0.1%-15GM Cr, 1 APPLIC TOP BID for 7 Days, #1 TUB Prov:CHICHI ALSTON MD 09/29/17 Nicotine* (Nicotine* Patch) 21 mg/day Patch, 1 EACH TD DAILY for 30 Days, #30 PATCH 5 Refills Prov:ROX COLLINS MD 09/21/17 Naproxen* (Naprosyn*) 500 Mg Tablet, 500 MG PO BID PRN for PAIN AND/OR INFLAMMATION, #30 TAB Prov:KARLI TIERNEY MD 06/28/17 Ondansetron Hcl* (Zofran*) 4 Mg Tablet, 4 MG PO Q8H PRN for NAUSEA AND/OR VOMITING, #15 TAB Prov:KARLI TIERNEY MD 06/28/17 Albuterol Sulfate* (Proair HFA*) 8.5 Gm Hfa.aer.ad, 2 PUFF INH Q4 for COUGH, #1 INHALER Prov:KARLI TIERNEY MD 06/28/17 Aspirin (Aspirin) 81 Mg Chew, 81 MG PO DAILY for 30 Days, TAB Prov:MESFIN BARBOZA 06/26/16 Alprazolam* (Xanax*) 0.5 Mg Tab, 0.5 MG PO QHS PRN for ANXIETY, #20 TAB Prov:MESFIN BARBOZA 06/26/16 Allergies Allergies: Coded Allergies: morphine (Unverified Adverse Reaction, Unknown, 01/15/19) PMhx/Soc History of Surgery: Yes (Hysterectomy,Spine Fusion 2011,Ortho Surg, Thoracostomy) Anesthesia Reaction: No Hx Neurological Disorder: No Hx Respiratory Disorders: Yes (Asthma) Hx Cardiac Disorders: Yes (HTN) Hx Psychiatric Problems: Yes (Depression,Anxiety) Hx Miscellaneous Medical Probl: Yes (CRP Syndrome) Hx Alcohol Use: Yes (Formerly ETOH) Hx Substance Use: Yes (Med Marijuana) Hx Tobacco Use: Yes (3 sticks/day) Smoking Status: Light tobacco smoker Physical Exam Vitals Vital Signs Date Temp Pulse Resp B/P (MAP) Pulse Ox O2 O2 Flow FiO2 Time Delivery Rate 01/15/19 97.9 94 18 139/84 100 11:27 (102) Physical Exam GENERAL: The patient is well developed and appropriate for usual state of health in no apparent distress HEENT: Pupils equal, round, and reactive to light. EOMI. There is no scleral icterus. NECK: C-spine is soft and supple, there is no meningismus. There is no cervical lymphadenopathy. LUNGS: Clear to auscultation bilaterally. There are no rales, wheezes or r honchi. HEART: Regular rate and rhythm, no murmurs, clicks, rubs or gallops. ABDOMEN: Soft, non-tender, non-distended. There are bowel sounds in all four quadrants. No rebound or guarding. EXTREMITIES: There is no peripheral cyanosis or edema. No focal swelling or erythema. NEURO: The patient moves all four extremities with 5/5 strength. Cranial nerves II - XII are intact. Normal gait. Alert and oriented SKIN: There is no apparent rash or petechiae. HEME/LYMPHATIC: There is no evidence of excessive bruising or lymphedema. PSYCHIATRIC: The patient does not appear anxious or depressed. Result Diagram: 01/15/19 1205 01/15/19 1205 Results 24 hrs Laboratory Tests Test 01/15/19 12:05 01/15/19 13:02 White Blood Count 8.0 10^3/ul Red Blood Count 4.21 10^6/ul Hemoglobin 13.6 g/dl Hematocrit 39.6 % Mean Corpuscular Volume 94.1 fl Mean Corpuscular Hemoglobin 32.3 pg Mean Corpuscular Hemoglobin Concent 34.3 g/dl Red Cell Distribution Width 12.2 % Platelet Count 251 10^3/UL Mean Platelet Volume 9.4 fl Immature Granulocytes % 0.300 % Neutrophils % 66.9 % Lymphocytes % 24.4 % Monocytes % 6.4 % Eosinophils % 1.6 % Basophils % 0.4 % Nucleated Red Blood Cells % 0.0 /100WBC Immature Granulocytes # 0.020 10^3/ul Neutrophils # 5.3 10^3/ul Lymphocytes # 1.9 10^3/ul Monocytes # 0.5 10^3/ul Eosinophils # 0.1 10^3/ul Basophils # 0.0 10^3/ul Nucleated Red Blood Cells # 0.0 10^3/ul Sodium Level 144 mmol/L Potassium Level 3.7 mmol/L Chloride Level 113 mmol/L Carbon Dioxide Level 18 mmol/L Anion Gap 13 Blood Urea Nitrogen 15 mg/dl Creatinine 0.75 mg/dl Est Glomerular Filtrat Rate mL/min > 60 mL/min Glucose Level 103 mg/dl Calcium Level 9.8 mg/dl Total Bilirubin 0.5 mg/dl Direct Bilirubin 0.00 mg/dl Indirect Bilirubin 0.5 mg/dl Aspartate Amino Transf (AST/SGOT) 17 IU/L Alanine Aminotransferase (ALT/SGPT) 19 IU/L Alkaline Phosphatase 118 IU/L Troponin I < 0.012 ng/ml Total Protein 8.1 g/dl Albumin 4.5 g/dl Globulin 3.60 g/dl Albumin/Globulin Ratio 1.25 Lipase 101 U/L Urine Color YELLOW Urine Clarity SLIGHTLY CLOUDY Urine pH 5.0 Urine Specific [place] 1.023 Urine Ketones NEGATIVE mg/dL Urine Nitrite NEGATIVE mg/dL Urine Bilirubin NEGATIVE mg/dL Urine Urobilinogen NEGATIVE mg/dL Urine Leukocyte Esterase 2+ Alexander/ul Urine Microscopic RBC 6 /HPF Urine Microscopic WBC 15 /HPF Urine Squamous Epithelial Cells MODERATE /HPF Urine Bacteria FEW /HPF Urine Mucus MANY /HPF Urine Hemoglobin 2+ mg/dL Urine Glucose NEGATIVE mg/dL Urine Total Protein NEGATIVE mg/dl Current Medications Medications Dose Sig/Marnie Start Time Status Last (Trade) Ordered Route PRN Stop Time Admin Dose Reason Admin Sodium 1,000 ml @ Q1H STAT 01/15/19 DC 01/15/19 Chloride 1,000 mls/hr IV 11:44 12:02 01/15/19 12:43 Ondansetron 4 mg ONCE STAT 01/15/19 DC 01/15/19 HCl (Zofran IV 11:44 12:01 Inj) 01/15/19 11:55 0.5 mg ONCE STAT 01/15/19 DC Hydromorphone IV 13:33 HCl 01/15/19 13:34 (Dilaudid) Procedures/MDM Patient was taken to a room, seen and evaluated. Comfort measures were initiated. [facility] was reviewed Diagnostic tests were ordered and reviewed. 3 LEAD RHYTHM STRIP: [Normal sinus rhythm without ectopy] EK lead EKG reviewed by myself: [Normal Sinus Rhythm] [Normal [place] and intervals] [No ST elevation, depression, or T wave inversion] Impression: [Normal EKG] RADIOLOGY: [reviewed with the radiologist] REEVALUATION: 1345: Diagnostic tests were appreciated discussed with the patient. She remained clinically comfortable appearing I felt appropriate for discharge. MEDICAL DECISION MAKIN-year-old female presents the emergency department with a number of nonspecific discomfort. Her evaluation focused on cardiac GI and other high-risk concerns. Her evaluation does not demonstrate any indications of significant decompensated medical disease. At this time, patient seems to have her discomforts related to her chronic pain management issue. She is already had a significant work-up for cardiac disease and therefore I am not concerned about this nonspecific chest pain, especially in light of the negative troponin and normal EKG. Similarly, her nonspecific abdominal discomfort does not seem to be related to appendicitis or other high-risk concerns. Departure Diagnosis: Primary Impression: Chronic pain Condition: Stable Patient Instructions: Chronic Pain Additional Instructions: See your doctor for follow-up as discussed. Take a copy of your test results, if appropriate, to this follow-up visit. See your doctor or return here if your symptoms do not improve as expected. At any time, please return to the emergency department for any change or worsening in her symptoms. JOSE ALBERTO GARCIA January 15, 2019 13:43
[2019-01-15 14:20] VITALS: BP 128/83; PULSE 77; RESP 18
== END 2019-01-15 15:49 | disposition home or self-care (01) ==
LOC: E/R 11:24
DX: G89.29 Other chronic pain (principal); I10 Essential (primary) hypertension; J45.909 Unspecified asthma, uncomplicated; F17.210 Nicotine dependence, cigarettes, uncomplicated; R11.0 Nausea; Z79.82 Long term (current) use of aspirin
CPT/HCPCS: 36415; 80053; 81001; 83690; 84484; 85025; 93005; 96374; 96375; J1170; J2405; J7030; Z7502

== ENCOUNTER 2019-02-04 19:20 | Inpatient (IN) | payer OTHER ==
[~2019-02-04] VITALS: Ht 167.6 cm; Wt 61.7 kg
[~2019-02-04 19:20] MED LIST changes: -ALBU8.5H8 INH; -ALPR0.5T PO; +ASPI-817 PO; -ASPI-831 PO; -GABA300C PO; +GABA300C16 PO; +HYDR-3980 PO; -LORA1TAB PO; -NAPR-985 PO; -NICO-546 TD; -ONDA4TAB8 PO; -OXYC-279 PO; -TOPI100T11 ORAL; +TOPI100T11 PO; -TRIA15CR55 TOP; -VENL150C PO; +VENL150C94 PO
[2019-02-04] MEDS ORDERED: ASPIRIN 81 MG TAB PO STA (21:04)
[2019-02-04] MEDS ORDERED: NITROGLYCERIN 2% 1 GM OINT PKT TD STA (21:04)
[2019-02-04] MEDS ORDERED: NITROGLYCERIN (SL) 0.4 MG TAB SL PRN ×2 (21:30→23:30)
[2019-02-04] MEDS ORDERED: ACETAMINOPHEN 325 MG TAB PO ONE (22:00)
[2019-02-04] MEDS ORDERED: ONDANSETRON 4 MG INJ IV PRN ×2 (23:30)
[2019-02-04] MEDS ORDERED: NACL 0.9% 3 ML SYG IV SCH (23:30)
[2019-02-04] MEDS ORDERED: DOCUSATE SODIUM 100 MG CAP PO PRN (23:30)
[2019-02-04] MEDS ORDERED: BISACODYL (EC) 5 MG TAB PO PRN (23:30)
[2019-02-04] MEDS ORDERED: morphine 2 MG INJ IV PRN (23:30)
[2019-02-04] MEDS ORDERED: ACETAMINOPHEN 325 MG TAB PO PRN ×2 (23:30)
--- NOTE | 2019-02-04 23:55 | ERD ---
ER Documentation Chief Complaint Chief Complaint midsternal chest pain non-provoked non-radiating; left arm numb +CMS HPI Patient is a 53-year-old female with no medical problems who presents with chest pain. The patient's chest pain is on the left side and radiates down her left arm. She felt numbness and tingling in the left hand as well. She felt dizzy and almost passed out while she was driving she had a pull to the side of the road. Patient said that she does not feel well and that she was sweating when this happened. She describes the chest pain as a pressure. She does have a primary doctor. ROS All systems reviewed and are negative except as per history of present illness. Medications Home Meds Reported Medications Hydrocodone/Acetaminophen ([place] 10-325 Tablet) 1 Each Tablet, 1 EACH PO QID, TAB 01/15/19 Topiramate* (Topiramate*) 100 Mg Tablet, 100 MG PO DAILY, TAB 01/15/19 Venlafaxine Hcl* (Venlafaxine Hcl ER*) 150 Mg Cap.er.24h, 300 MG PO QHS, CAP 01/15/19 Aspirin* (Aspirin* EC) 81 Mg Tablet.dr, 81 MG PO DAILY, TAB 01/15/19 Levothyroxine Sodium* (Levothyroxine Sodium*) 50 Mcg Tablet, 50 MCG PO BEFORE BREAKFAST, #30 TAB 01/15/19 Gabapentin* (Gabapentin*) 300 Mg Capsule, 300 MG PO DAILY, #60 CAP 01/15/19 Allergies Allergies: Coded Allergies: morphine (Unverified Adverse Reaction, Unknown, 01/15/19) PMhx/Soc History of Surgery: Yes (Hysterectomy,Spine Fusion 2011,Ortho Surg,Thoracostomy) Anesthesia Reaction: No Hx Neurological Disorder: No Hx Respiratory Disorders: Yes (Asthma) Hx Cardiac Disorders: Yes (HTN) Hx Psychiatric Problems: Yes (Depression,Anxiety) Hx Miscellaneous Medical Probl: Yes (CRP Syndrome) Hx Alcohol Use: Yes (Formerly ETOH) Hx Substance Use: Yes (Med Marijuana) Hx Tobacco Use: Yes (3 sticks/day) Smoking Status: Current every day smoker FmHx Family History: coronary disease Physical Exam Vitals Vital Signs Date Temp Pulse Resp B/P (MAP) Pulse Ox O2 O2 Flow FiO2 Time Delivery Rate 02/04/19 48 19 101/57 100 Room Air 22:39 (72) 02/04/19 97.9 74 26 152/103 100 19:33 (119) Physical Exam Const: No acute distress Head: Atraumatic Eyes: Normal Conjunctiva ENT: Normal External Ears, Nose and Mouth. Neck: Full range of motion. No meningismus. Resp: Clear to auscultation bilaterally Cardio: Regular rate and rhythm, no murmurs Abd: Soft, non tender, non distended. Normal bowel sounds Skin: No petechiae or rashes Back: No midline or flank tenderness Ext: No cyanosis, or edema Neur: Awake and alert Psych: Normal Mood and Affect Result Diagram: 02/04/19211702/04/192117 Results 24 hrs Laboratory Tests Test 02/04/19 21:18 White Blood Count 11.1 10^3/ul Red Blood Count 3.81 10^6/ul Hemoglobin 12.3 g/dl Hematocrit 37.1 % Mean Corpuscular Volume 97.4 fl Mean Corpuscular Hemoglobin 32.3 pg Mean Corpuscular Hemoglobin Concent 33.2 g/dl Red Cell Distribution Width 12.6 % Platelet Count 266 10^3/UL Mean Platelet Volume 9.5 fl Immature Granulocytes % 0.200 % Neutrophils % 54.1 % Lymphocytes % 36.8 % Monocytes % 6.0 % Eosinophils % 2.4 % Basophils % 0.5 % Nucleated Red Blood Cells % 0.0 /100WBC Immature Granulocytes # 0.020 10^3/ul Neutrophils # 6.0 10^3/ul Lymphocytes # 4.1 10^3/ul Monocytes # 0.7 10^3/ul Eosinophils # 0.3 10^3/ul Basophils # 0.1 10^3/ul Nucleated Red Blood Cells # 0.0 10^3/ul Sodium Level 141 mmol/L Potassium Level 3.9 mmol/L Chloride Level 111 mmol/L Carbon Dioxide Level 24 mmol/L Anion Gap 6 Blood Urea Nitrogen 12 mg/dl Creatinine 0.70 mg/dl Est Glomerular Filtrat Rate mL/min > 60 mL/min Glucose Level 96 mg/dl Calcium Level 9.3 mg/dl Troponin I < 0.012 ng/ml Current Medications Medications Dose Sig/Marnie Start Time Status Last (Trade) Ordered Route PRN Stop Time Admin Dose Reason Admin Aspirin 162 mg ONCE STAT 02/04/19 DC 02/04/19 (Aspirin) PO 21:04 21:22 02/04/19 21:05 1 inch ONCE STAT 02/04/19 DC 02/04/19 Nitroglycerin TD 21:04 21:22 02/04/19 21:05 (Nitroglyceri n 2% Oint) 1 tab Q5M UP TO 3 02/04/19 02/04/19 Nitroglycerin DOSES PRN 21:30 21:22 SL .CHEST (Nitroglyceri PAIN n (Sl Tab) 0.4 Mg) 650 mg ONCE ONCE 02/04/19 DC 02/04/19 Acetaminophen PO 22:00 22:41 (Tylenol 02/04/19 22:01 Tab) Ondansetron 4 mg ER BRIDGE 02/04/19 HCl (Zofran PRN IV 23:30 Inj) NAUSEA/VOMITI 02/05/19 23:29 NG 650 mg ER BRIDGE 02/04/19 Acetaminophen PRN PO 23:30 (Tylenol .MILD PAIN 02/05/19 23:29 Tab) 1-3 OR TEMP Aspirin 81 mg DAILY PO 02/05/19 (Halfprin) 09:00 Gabapentin 300 mg DAILY PO 02/05/19 (Neurontin) 09:00 50 mcg BEFORE 02/05/19 Levothyroxine BREAKFAST 07:00 Sodium PO (Synthroid) Venlafaxine 300 mg QHS PO 02/05/19 HCl 21:00 (Effexor Xr) IV Flush 3 ml PER 02/04/19 (NS 3 ml) PROTOCOL IV 23:30 Ondansetron 4 mg Q6H PRN 02/04/19 HCl (Zofran IV 23:30 Inj) NAUSEA/VOMITI NG 1 tab Q5M PRN 02/04/19 Nitroglycerin SL .CHEST 23:30 PAIN (Nitroglyceri n (Sl Tab) 0.4 Mg) 650 mg Q6H PRN 02/04/19 Acetaminophen PO .PAIN 1-3 23:30 (Tylenol OR TEMP Tab) Morphine 2 mg Q4H PRN 02/04/19 Sulfate IV .PAIN 23:30 (morphine) 7-10 Docusate 100 mg Q12H PRN 02/04/19 Sodium PO 23:30 (Colace) .CONSTIPATION Bisacodyl 5 mg DAILY PRN 02/04/19 (Dulcolax) PO 23:30 .CONSTIPATION Procedures/MDM Smoking Cessation Therapy: Pt. was lectured for greater than 3 minutes on the health risks of continued smoking and the benefits of cessation. EKG read by me: Rate/Rhythm: Regular rate and rhythm at a normal rate Intervals: Normal Impression: Flipped T waves in the lateral leads X-ray read by radiology. Patient is a 53-year-old female with a family history of coronary disease and smoking who presents with chest pain. I am concerned for possible acute coronary syndrome. I doubt pneumonia, pneumothorax, pulmonary embolism, or aortic dissection. The patient will be given aspirin nitroglycerin and will be admitted to the care of Dr. Hammer to a telemetry observation bed. Initial troponin is negative. Departure Diagnosis: Primary Impression: Chest pain Chest pain type: unspecified Qualified Codes: R07.9 - Chest pain, unspecified Condition: BIA Dodd MD February 04, 2019 23:55
[2019-02-05] VITALS (11 sets, daily range): BP systolic 104–131; BP diastolic 54–71; PULSE 44–67; RESP 18–19; Ht 167.6 cm; Wt 61.7 kg
[2019-02-05] MEDS ORDERED: KETOROLAC 15 MG INJ IV ONE (00:29)
--- NOTE | 2019-02-05 02:18 | HP ---
Date/Time of Note Date/Time of Note DATE: 02/05/19 TIME: 02:03 Assessment/Plan VTE Prophylaxis SCD applied (from Nsg): Yes Pharmacological prophylaxis: NA/contraindicated Pharm contraindication: low risk/ambulating Lines/Catheters IV Catheter Type (from Nrsg): Saline Lock Assessment/Plan Hospital Course This is a 53-year-old female being admitted to the telemetry floor for observation for: #1 chest pain: Rule out ACS versus other. Will monitor the patient on telemetry. Will check cardiac enzymes x3, the first that was negative. EKG did show T wave inversions in lead V2, V3 and V4. PRN nitro. Will check lipid panel hemoglobin A1c, TSH. Will consult cardiology Dr. Kingston. #2 symptomatic bradycardia: Patient was observed to go down to the 40s on the telemetry strip while complaining of a headache. She states that the headache started when she came to the ER and the nitro patch was started. Nitro patch was removed. She was given Tylenol and Toradol for headache. We will continue to monitor this closely. Check urine drug screen. Atropine 0.5 as needed for heart rate less than 35 #3 Asthma: Stable #4 depression: We will continue patient's home medications #5 hypothyroidism: We will check TSH, continue with levothyroxine #6 tobacco use: Encourage cessation #7 DVT GI prophylaxis: SCDs, no GI prophylaxis indicated Further treatment strategy will be implemented as per the clinical course Result Diagram: 02/04/19211702/04/192117 Results 24hrs Laboratory Tests Test 02/04/19 21:18 White Blood Count 11.1 #H Red Blood Count 3.81 L Hemoglobin 12.3 Hematocrit 37.1 Mean Corpuscular Volume 97.4 Mean Corpuscular Hemoglobin 32.3 Mean Corpuscular Hemoglobin Concent 33.2 Red Cell Distribution Width 12.6 Platelet Count 266 Mean Platelet Volume 9.5 Immature Granulocytes % 0.200 Neutrophils % 54.1 Lymphocytes % 36.8 Monocytes % 6.0 Eosinophils % 2.4 Basophils % 0.5 Nucleated Red Blood Cells % 0.0 Immature Granulocytes # 0.020 Neutrophils # 6.0 Lymphocytes # 4.1 H Monocytes # 0.7 Eosinophils # 0.3 Basophils # 0.1 Nucleated Red Blood Cells # 0.0 Sodium Level 141 Potassium Level 3.9 Chloride Level 111 H Carbon Dioxide Level 24 Anion Gap 6 Blood Urea Nitrogen 12 Creatinine 0.70 Est Glomerular Filtrat Rate mL/min > 60 Glucose Level 96 Calcium Level 9.3 Troponin I < 0.012 HPI/ROS Admit Date/Time Admit Date/Time Hx of Present Illness Chief complaint: Chest pain This is a 53-year-old female who presented to the emergency department complaining of chest pain. She stated that while she was driving she started feeling left-sided chest pain radiating down to her left arm. She also felt numb leg and tingling on her left hand. She started feeling dizzy and so she pulled over. She denies syncope. She denies any recent stressors. She does have a history of depression. She reported the chest pain is a pressure-like sensation and occasionally sharp. She denies any nausea vomiting or diarrhea. during my examination I did notice that the patient one down to the 40s on telemetry. She at that time was reporting a headache. She states that the headache started after she got the nitro patch in the emergency department. I did remove the nitro patch at the current time. Allergies: Morphine Medications: See CARLITOS MORALES Const: As per HPI Eyes : No pain discharge or redness or change in visual acuity ENT: No pain, sore throat, congestion, congestion, dysphagia or discharge Respiratory: No shortness of breath, cough, sputum, wheezing, or pleuritic pain Cardiovascular: As per HPI GI : no change in appetite, abdominal pain, nausea, vomiting, diarrhea, cons tipation, or change in the color his stool Genitourinary: No dysuria, hematuria, flank pain , discharge or CVA tenderness Musculoskeletal: No joint pain, back pain, neck pain, restricted range of motion in neck or joints Skin: No rash, bruising or hives Neuro: As per HPI Endocrine: No polyuria, polydipsia, temperature intolerance Psych: No hallucination, depression, anxiety or suicidal ideation PMH/Family/Social Past Medical History asthma, depression, hypothyroidism, Vitamin D def, kidney stones, history of thoracic outlet obstruction status post surgical repair Medications Current Medications Nitroglycerin (Nitroglycerin (Sl Tab) 0.4 Mg) 1 tab Q5M UP TO 3 DOSES PRN SL .CHEST PAIN Last administered on 02/04/19at 21:22; Admin Dose 1 TAB; Start 02/04/19 at 21:30 Ondansetron HCl (Zofran Inj) 4 mg ER BRIDGE PRN IV NAUSEA/VOMITING; Start 02/04/19 at 23:30; Stop 02/05/19 at 23:29 Acetaminophen (Tylenol Tab) 650 mg ER BRIDGE PRN PO .MILD PAIN 1-3 OR TEMP; Start 02/04/19 at 23:30; Stop 02/05/19 at 23:29 Aspirin (Halfprin) 81 mg DAILY PO ; Start 02/05/19 at 09:00 Gabapentin (Neurontin) 300 mg DAILY PO ; Start 02/05/19 at 09:00 Levothyroxine Sodium (Synthroid) 50 mcg BEFORE BREAKFAST PO ; Start 02/05/19 at 07:00 Venlafaxine HCl (Effexor Xr) 300 mg QHS PO ; Start 02/05/19 at 21:00 IV Flush (NS 3 ml) 3 ml PER PROTOCOL IV ; Start 02/04/19 at 23:30 Ondansetron HCl (Zofran Inj) 4 mg Q6H PRN IV NAUSEA/VOMITING; Start 02/04/19 at 23:30 Nitroglycerin (Nitroglycerin (Sl Tab) 0.4 Mg) 1 tab Q5M PRN SL .CHEST PAIN; Start 02/04/19 at 23:30 Acetaminophen (Tylenol Tab) 650 mg Q6H PRN PO .PAIN 1-3 OR TEMP; Start 02/04/19 at 23:30 Docusate Sodium (Colace) 100 mg Q12H PRN PO .CONSTIPATION; Start 02/04/19 at 23:30 Bisacodyl (Dulcolax) 5 mg DAILY PRN PO .CONSTIPATION; Start 02/04/19 at 23:30 Atropine Sulfate (Atropine) 0.5 mg PRN PRN IV for HR less than 35; Start 02/05/19 at 02:30; Status UNV Coded Allergies: morphine (Unverified Adverse Reaction, Unknown, 02/05/19) Past Surgical History Back surgery, hysterectomy, cholecystectomy, kidney stone surgery, right ankle bone spur surgery, right thoracic outlet obstruction surgery Past Surgical Hx: other Family History Significant Family History: heart disease Social History Alcohol Use: none Smoking Status: Current every day smoker (1 pack) Drug Use: none Exam/Review of Systems Vital Signs Vitals Vital Signs Date Temp Pulse Resp B/P (MAP) Pulse Ox O2 O2 Flow FiO2 Time Delivery Rate 02/05/19 51 20 97/52 (67) 99 Room Air 01:13 02/04/19 97.9 19:33 Exam Exam General: Patient currently lying in bed, she does appear to be lethargic but she is easily arousable HEENT: Atraumatic, normocephalic. The pupils are equal, round and reactive. Extraocular motor are intact Neck: Supple with full range of motion. No rigidity or meningismus Chest: Nontender Lungs: Clear to auscultation bilaterally no crackles rales or wheezing Heart: Sinus bradycardia Abdomen: Soft , nontender, nondistended , bowel sounds are present. No guarding no rebound tenderness , No masses or organomegaly. No costovertebral temporal angle mass Extremities: Normal to inspection, no edema no cyanosis Neurologic: Normal mental status, speech normal, cranial nerves II through XII are intact, motor and sensory are intact, Psych: Slightly anxious Additional Comments EKG: Normal sinus at 75 bpm, T wave inversions noted in leads V3, V4 and V5 equipment monitor phototypesetting did show heart rates going down to 40s. PROCEDURE: XR 1 view Chest. CLINICAL INDICATION: Chest pain. TECHNIQUE: Portable Single frontal view of the chest was obtained. COMPARISON: CHEST 09/21/2018 FINDINGS: The heart is normal in size. There are mild aortic calcifications. There is no focal consolidation. There is no pleural effusion. No pneumothorax is identified. The osseous structures are intact. There is mild to moderate spondylosis/enthesopathy within the thoracic spine. IMPRESSION: No significant change. No evidence for acute cardiopulmonary disease. Aortic calcifications. Further findings as detailed above. RPTAT: HVF .Fabián Phillips MD, Date Time Electronically viewed and signed by .Fabián Phillips MD, MD on 02/04/2019 22:10 .F/ CC: BIA JOSEPH MD [phone] YANNA BELL February 05, 2019 02:15
[2019-02-05] MEDS ORDERED: ATROPINE 1 MG/10 ML SYRINGE IV PRN (02:30)
[2019-02-05] MEDS: LEVOTHYROXINE 50 MCG TAB PO SCH (06:33)
[2019-02-05] MEDS: ASPIRIN (EC) 81 MG TAB PO SCH (08:30)
[2019-02-05] MEDS: GABAPENTIN 300 MG CAP PO SCH (08:30)
--- NOTE | 2019-02-05 10:01 | PN ---
Date/Time of Note Date/Time of Note DATE: 02/05/19 TIME: 10:01 Assessment/Plan VTE Prophylaxis SCD applied (from Nsg): Yes Pharmacological prophylaxis: NA/contraindicated Pharm contraindication: low risk/ambulating Lines/Catheters IV Catheter Type (from Nrsg): Saline Lock Assessment/Plan Assessment/Plan 1. Acute chest pain with radiation to digits b/l - appears more musculoskeletal vs stress related - serial trops negative - ECHO ordered - Cardiology consulted for further recomemndations 2. Symptomatic bradycardia - has been admitted in the past with low HR. Was taking BB at the time but currently not on any BP medications 3. Tobacco abuse - nicotine patch - cessation discussed 4. Depression - continue home medications - patient under a great deal of stress lately 5. hypothyroidism: We will check TSH, continue with levothyroxine 6. Disposition - Cardiology consultation pending. when symptoms improve, will d/c home Result Diagram: 02/05/19 0418 02/05/19 0418 Results 24hrs Laboratory Tests Test 02/04/19 21:18 02/05/19 04:18 White Blood Count 11.1 #H 7.2 # Red Blood Count 3.81 L 3.45 L Hemoglobin 12.3 11.2 L Hematocrit 37.1 34.0 L Mean Corpuscular Volume 97.4 98.6 Mean Corpuscular Hemoglobin 32.3 32.5 Mean Corpuscular Hemoglobin Concent 33.2 32.9 Red Cell Distribution Width 12.6 12.5 Platelet Count 266 226 Mean Platelet Volume 9.5 9.4 Immature Granulocytes % 0.200 0.300 Neutrophils % 54.1 43.3 Lymphocytes % 36.8 45.5 Monocytes % 6.0 6.7 Eosinophils % 2.4 3.5 Basophils % 0.5 0.7 Nucleated Red Blood Cells % 0.0 0.0 Immature Granulocytes # 0.020 0.020 Neutrophils # 6.0 3.1 Lymphocytes # 4.1 H 3.3 H Monocytes # 0.7 0.5 Eosinophils # 0.3 0.3 Basophils # 0.1 0.1 Nucleated Red Blood Cells # 0.0 0.0 Sodium Level 141 144 Potassium Level 3.9 3.5 Chloride Level 111 H 113 H Carbon Dioxide Level 24 23 Anion Gap 6 8 Blood Urea Nitrogen 12 13 Creatinine 0.70 0.72 Est Glomerular Filtrat Rate mL/min > 60 > 60 Glucose Level 96 88 Calcium Level 9.3 9.0 Troponin I < 0.012 < 0.012 Hemoglobin A1c 5.4 Total Bilirubin 0.7 Direct Bilirubin 0.00 Indirect Bilirubin 0.7 Aspartate Amino Transf (AST/SGOT) 14 L Alanine Aminotransferase (ALT/SGPT) 11 L Alkaline Phosphatase 84 Creatine Kinase 61 Creatine Kinase Index 0.5 Creatinine Kinase MB (Mass) 0.33 Total Protein 6.8 Albumin 3.9 Globulin 2.90 Albumin/Globulin Ratio 1.34 Thyroid Stimulating Hormone (TSH) Pending Subjective 24 Hr Interval Summary Free Text/Dictation Patient still with discomfort in hand bilaterally with numbness and tingling. Still with chest discomfort as well. Admits to being under a great deal of stress lately as well. Exam/Review of Systems Exam Vitals Vital Signs Date Temp Pulse Resp B/P (MAP) Pulse Ox O2 O2 Flow FiO2 Time Delivery Rate 02/05/19 97.9 55 18 107/54 96 07:37 (71) 02/05/19 Room Air 05:02 Intake and Output 02/04/19 02/04/19 02/05/19 1515:00 23:00 07:00 IntakeIntake Total 350 ml BalanceBalance 350 ml Exam General: Patient currently lying in bed, no acute distress Neck: Supple Chest: Nontender Lungs: Clear to auscultation bilaterally no crackles rales or wheezing Heart: Sinus bradycardia, no murmurs Abdomen: Soft , nontender, nondistended , bowel sounds are present. No guarding no rebound tenderness Extremities: Normal to inspection, no edema no cyanosis Neurologic: Normal mental status, speech normal, cranial nerves II through XII are intact, motor intact. diminished sensation fingertips Results Results 24hrs Laboratory Tests Test 02/04/19 21:18 02/05/19 04:18 White Blood Count 11.1 #H 7.2 # Red Blood Count 3.81 L 3.45 L Hemoglobin 12.3 11.2 L Hematocrit 37.1 34.0 L Mean Corpuscular Volume 97.4 98.6 Mean Corpuscular Hemoglobin 32.3 32.5 Mean Corpuscular Hemoglobin Concent 33.2 32.9 Red Cell Distribution Width 12.6 12.5 Platelet Count 266 226 Mean Platelet Volume 9.5 9.4 Immature Granulocytes % 0.200 0.300 Neutrophils % 54.1 43.3 Lymphocytes % 36.8 45.5 Monocytes % 6.0 6.7 Eosinophils % 2.4 3.5 Basophils % 0.5 0.7 Nucleated Red Blood Cells % 0.0 0.0 Immature Granulocytes # 0.020 0.020 Neutrophils # 6.0 3.1 Lymphocytes # 4.1 H 3.3 H Monocytes # 0.7 0.5 Eosinophils # 0.3 0.3 Basophils # 0.1 0.1 Nucleated Red Blood Cells # 0.0 0.0 Sodium Level 141 144 Potassium Level 3.9 3.5 Chloride Level 111 H 113 H Carbon Dioxide Level 24 23 Anion Gap 6 8 Blood Urea Nitrogen 12 13 Creatinine 0.70 0.72 Est Glomerular Filtrat Rate mL/min > 60 > 60 Glucose Level 96 88 Calcium Level 9.3 9.0 Troponin I < 0.012 < 0.012 Hemoglobin A1c 5.4 Total Bilirubin 0.7 Direct Bilirubin 0.00 Indirect Bilirubin 0.7 Aspartate Amino Transf (AST/SGOT) 14 L Alanine Aminotransferase (ALT/SGPT) 11 L Alkaline Phosphatase 84 Creatine Kinase 61 Creatine Kinase Index 0.5 Creatinine Kinase MB (Mass) 0.33 Total Protein 6.8 Albumin 3.9 Globulin 2.90 Albumin/Globulin Ratio 1.34 Thyroid Stimulating Hormone (TSH) Pending Medications Medication Current Medications Nitroglycerin (Nitroglycerin (Sl Tab) 0.4 Mg) 1 tab Q5M UP TO 3 DOSES PRN SL .CHEST PAIN Last administered on 02/04/19at 21:22; Admin Dose 1 TAB; Start 02/04/19 at 21:30 Aspirin (Halfprin) 81 mg DAILY PO Last administered on 02/05/19at 08:30; Admin Dose 81 MG; Start 02/05/19 at 09:00 Gabapentin (Neurontin) 300 mg DAILY PO Last administered on 02/05/19at 08:30; Admin Dose 300 MG; Start 02/05/19 at 09:00 Levothyroxine Sodium (Synthroid) 50 mcg BEFORE BREAKFAST PO Last administered on 02/05/19at 06:33; Admin Dose 50 MCG; Start 02/05/19 at 07:00 Venlafaxine HCl (Effexor Xr) 300 mg QHS PO ; Start 02/05/19 at 21:00 IV Flush (NS 3 ml) 3 ml PER PROTOCOL IV ; Start 02/04/19 at 23:30 Ondansetron HCl (Zofran Inj) 4 mg Q6H PRN IV NAUSEA/VOMITING; Start 02/04/19 at 23:30 Nitroglycerin (Nitroglycerin (Sl Tab) 0.4 Mg) 1 tab Q5M PRN SL .CHEST PAIN; Start 02/04/19 at 23:30 Acetaminophen (Tylenol Tab) 650 mg Q6H PRN PO .PAIN 1-3 OR TEMP; Start 02/04/19 at 23:30 Docusate Sodium (Colace) 100 mg Q12H PRN PO .CONSTIPATION; Start 02/04/19 at 23:30 Bisacodyl (Dulcolax) 5 mg DAILY PRN PO .CONSTIPATION; Start 02/04/19 at 23:30 Atropine Sulfate (Atropine (Syringe)) 0.5 mg PRN PRN IV for HR less than 35; Start 02/05/19 at 02:30 Nicotine (Nicoderm 21 Mg/ 24hr) 1 patch DAILY TRANSDERM ; Start 02/05/19 at 09:30 ALENA PORTER MD February 05, 2019 10:01
[2019-02-05] MEDS: NICOTINE (21 MG/24 HR) PATCH TRANSDERM SCH (10:26)
[2019-02-05] MEDS: TOPIRAMATE 100 MG TAB PO SCH (10:26)
[2019-02-05] MEDS: VENLAFAXINE (XR) 75 MG CAP PO SCH (10:26)
[2019-02-05] MEDS: HYDROCODONE/APAP (10/325) TAB PO PRN ×2 (10:27→17:48)
--- NOTE | 2019-02-05 11:12 | CONS ---
Assessment/Plan Assessment/Plan Hospital Course (Demo Recall) Bilateral hand paresthesia Shoulder and chest wall pain History of depression History of chronic pain syndrome Sinus bradycardia -Patient presents with bilateral hand paresthesia and bilateral shoulder pain and chest pain. Symptoms were at rest. She denies exertional symptoms, her symptoms since admission have since improved. -2 sets of cardiac enzymes are negative, ECG done today with sinus rhythm with no significant ischemic abnormalities -Patient with CT coronary angiogram performed January 2017 with no evidence of obstructive coronary artery disease, nuclear cardiac perfusion study June 2016 with no perfusion abnormalities -Patient denies exertional symptoms, furthermore her symptoms began with bilateral hand numbness and paresthesia. This could possibly be related to her psychiatric medications or other etiology. -Awaiting third set of cardiac enzymes, echocardiogram. -Regards her bradycardia, patient was sinus bradycardia, currently heart rates in the 50s, on review of multiple previous admissions, patient was noted to be bradycardia at times down to the 40s. Would monitor on telemetry Consultation Date/Type/Reason Admit Date/Time Type of Consult Cardiology Reason for Consultation Arm and chest pain Date/Time of Note DATE: 02/05/19 TIME: 11:01 Hx of Present Illness Is a 53-year-old female with past medical history of depression and chronic pain who presents with numbness in her bilateral hands, shoulder and chest pain. Patient was driving and felt numbness and tingling in both of her hands most sore on the left hand. This sensation began in her hand and radiate up to her shoulder. She also felt a fluttering-like sensation in her chest. Also complains of left and right shoulder discomfort worse with arm movements and pushing on her chest wall. While this was going on, patient felt somewhat confused. She went home and was not feeling well including shortness of breath and anxiety. She was brought to the emergency room for evaluation and care. She is currently feeling better, she still having this sensation in her hands and her chest. The chest discomfort has improved. It feels more like a soreness when she pushes on her chest wall. At times she does get dizzy as well. Prior to this episode, she denies any exertional chest pain or shortness of breath, she does get occasional palpitations. 12 point review of systems was performed with all pertinent positives and negatives mentioned above and all else is negative Past Medical History Impression Chronic pain syndrome Home Meds Reported Medications Hydrocodone/Acetaminophen ([place] 10-325 Tablet) 1 Each Tablet, 1 EACH PO QID, TAB 01/15/19 Topiramate* (Topiramate*) 100 Mg Tablet, 100 MG PO DAILY, TAB 01/15/19 Venlafaxine Hcl* (Venlafaxine Hcl ER*) 150 Mg Cap.er.24h, 300 MG PO QHS, CAP 01/15/19 Aspirin* (Aspirin* EC) 81 Mg Tablet.dr, 81 MG PO DAILY, TAB 01/15/19 Levothyroxine Sodium* (Levothyroxine Sodium*) 50 Mcg Tablet, 50 MCG PO BEFORE BREAKFAST, #30 TAB 01/15/19 Gabapentin* (Gabapentin*) 300 Mg Capsule, 300 MG PO DAILY, #60 CAP 01/15/19 Medications Current Medications Nitroglycerin (Nitroglycerin (Sl Tab) 0.4 Mg) 1 tab Q5M UP TO 3 DOSES PRN SL .CHEST PAIN Last administered on 02/04/19at 21:22; Admin Dose 1 TAB; Start 02/04/19 at 21:30 Aspirin (Halfprin) 81 mg DAILY PO Last administered on 02/05/19at 08:30; Admin Dose 81 MG; Start 02/05/19 at 09:00 Gabapentin (Neurontin) 300 mg DAILY PO Last administered on 02/05/19at 08:30; Admin Dose 300 MG; Start 02/05/19 at 09:00 Levothyroxine Sodium (Synthroid) 50 mcg BEFORE BREAKFAST PO Last administered on 02/05/19at 06:33; Admin Dose 50 MCG; Start 02/05/19 at 07:00 IV Flush (NS 3 ml) 3 ml PER PROTOCOL IV ; Start 02/04/19 at 23:30 Ondansetron HCl (Zofran Inj) 4 mg Q6H PRN IV NAUSEA/VOMITING; Start 02/04/19 at 23:30 Nitroglycerin (Nitroglycerin (Sl Tab) 0.4 Mg) 1 tab Q5M PRN SL .CHEST PAIN; Start 02/04/19 at 23:30 Acetaminophen (Tylenol Tab) 650 mg Q6H PRN PO .PAIN 1-3 OR TEMP; Start 02/04/19 at 23:30 Docusate Sodium (Colace) 100 mg Q12H PRN PO .CONSTIPATION; Start 02/04/19 at 23:30 Bisacodyl (Dulcolax) 5 mg DAILY PRN PO .CONSTIPATION; Start 02/04/19 at 23:30 Atropine Sulfate (Atropine (Syringe)) 0.5 mg PRN PRN IV for HR less than 35; Start 02/05/19 at 02:30 Nicotine (Nicoderm 21 Mg/ 24hr) 1 patch DAILY TRANSDERM Last administered on 02/05/19at 10:26; Admin Dose 1 PATCH; Start 02/05/19 at 09:30 Venlafaxine HCl (Effexor Xr) 300 mg DAILY PO Last administered on 02/05/19at 10:26; Admin Dose 300 MG; Start 02/05/19 at 10:30 Acetaminophen/ Hydrocodone Bitart ([place] (10)) 1 tab QID PRN PO PAIN LEVEL 4-6 Last administered on 02/05/19at 10:27; Admin Dose 1 TAB; Start 02/05/19 at 10:30 Topiramate (Topamax) 100 mg DAILY PO Last administered on 02/05/19at 10:26; Admin Dose 100 MG; Start 02/05/19 at 10:30 Allergies: Coded Allergies: morphine (Unverified Adverse Reaction, Unknown, 02/05/19) Past Surgical History Past Surgical Hx: other (Thoracic outlet surgery) Family History Significant Family History: no pertinent family hx Social History Alcohol Use: none Smoking Status: Current every day smoker Drug Use: none, marijuana (Medical marijuana) Exam/Review of Systems Vital Signs Vitals Vital Signs Date Temp Pulse Resp B/P (MAP) Pulse Ox O2 O2 Flow FiO2 Time Delivery Rate 02/05/19 97.9 55 18 107/54 96 07:37 (71) 02/05/19 Room Air 05:02 Intake and Output 02/04/19 02/04/19 02/05/19 1515:00 23:00 07:00 IntakeIntake Total 350 ml BalanceBalance 350 ml Exam Exam Flat affect, no apparent distress Constitutional: alert, oriented Head: normocephalic Respiratory: clear to auscultation, normal air movement Cardiovascular: regular rate and rhythm (S1-S2 heard, no murmurs appreciated) Gastrointestinal: soft, non-tender, bowel sounds Musculoskeletal: other (Pain with palpation of chest wall and with movement of bilateral arms) Extremities: other (No edema) Labs Result Diagram: 02/05/19 4148 02/05/19 0418 Results 24hrs Laboratory Tests Test 02/04/19 21:18 02/05/19 04:18 White Blood Count 11.1 #H 7.2 # Red Blood Count 3.81 L 3.45 L Hemoglobin 12.3 11.2 L Hematocrit 37.1 34.0 L Mean Corpuscular Volume 97.4 98.6 Mean Corpuscular Hemoglobin 32.3 32.5 Mean Corpuscular Hemoglobin Concent 33.2 32.9 Red Cell Distribution Width 12.6 12.5 Platelet Count 266 226 Mean Platelet Volume 9.5 9.4 Immature Granulocytes % 0.200 0.300 Neutrophils % 54.1 43.3 Lymphocytes % 36.8 45.5 Monocytes % 6.0 6.7 Eosinophils % 2.4 3.5 Basophils % 0.5 0.7 Nucleated Red Blood Cells % 0.0 0.0 Immature Granulocytes # 0.020 0.020 Neutrophils # 6.0 3.1 Lymphocytes # 4.1 H 3.3 H Monocytes # 0.7 0.5 Eosinophils # 0.3 0.3 Basophils # 0.1 0.1 Nucleated Red Blood Cells # 0.0 0.0 Sodium Level 141 144 Potassium Level 3.9 3.5 Chloride Level 111 H 113 H Carbon Dioxide Level 24 23 Anion Gap 6 8 Blood Urea Nitrogen 12 13 Creatinine 0.70 0.72 Est Glomerular Filtrat Rate mL/min > 60 > 60 Glucose Level 96 88 Calcium Level 9.3 9.0 Troponin I < 0.012 < 0.012 Hemoglobin A1c 5.4 Total Bilirubin 0.7 Direct Bilirubin 0.00 Indirect Bilirubin 0.7 Aspartate Amino Transf (AST/SGOT) 14 L Alanine Aminotransferase (ALT/SGPT) 11 L Alkaline Phosphatase 84 Creatine Kinase 61 Creatine Kinase Index 0.5 Creatinine Kinase MB (Mass) 0.33 Total Protein 6.8 Albumin 3.9 Globulin 2.90 Albumin/Globulin Ratio 1.34 Thyroid Stimulating Hormone (TSH) 4.460 Medications Medications Current Medications Nitroglycerin (Nitroglycerin (Sl Tab) 0.4 Mg) 1 tab Q5M UP TO 3 DOSES PRN SL .CHEST PAIN Last administered on 02/04/19at 21:22; Admin Dose 1 TAB; Start 02/04/19 at 21:30 Aspirin (Halfprin) 81 mg DAILY PO Last administered on 02/05/19 08:30; Admin Dose 81 MG; Start 02/05/19 at 09:00 Gabapentin (Neurontin) 300 mg DAILY PO Last administered on 02/05/19 08:30; Admin Dose 300 MG; Start 02/05/19 at 09:00 Levothyroxine Sodium (Synthroid) 50 mcg BEFORE BREAKFAST PO Last administered on 02/05/19 06:33; Admin Dose 50 MCG; Start 02/05/19 at 07:00 IV Flush (NS 3 ml) 3 ml PER PROTOCOL IV ; Start 02/04/19 at 23:30 Ondansetron HCl (Zofran Inj) 4 mg Q6H PRN IV NAUSEA/VOMITING; Start 02/04/19 at 23:30 Nitroglycerin (Nitroglycerin (Sl Tab) 0.4 Mg) 1 tab Q5M PRN SL .CHEST PAIN; Start 02/04/19 at 23:30 Acetaminophen (Tylenol Tab) 650 mg Q6H PRN PO .PAIN 1-3 OR TEMP; Start 02/04/19 at 23:30 Docusate Sodium (Colace) 100 mg Q12H PRN PO .CONSTIPATION; Start 02/04/19 at 23:30 Bisacodyl (Dulcolax) 5 mg DAILY PRN PO .CONSTIPATION; Start 02/04/19 at 23:30 Atropine Sulfate (Atropine (Syringe)) 0.5 mg PRN PRN IV for HR less than 35; Start 02/05/19 at 02:30 Nicotine (Nicoderm 21 Mg/ 24hr) 1 patch DAILY TRANSDERM Last administered on 02/05/19at 10:26; Admin Dose 1 PATCH; Start 02/05/19 at 09:30 Venlafaxine HCl (Effexor Xr) 300 mg DAILY PO Last administered on 02/05/19 10:26; Admin Dose 300 MG; Start 02/05/19 at 10:30 Acetaminophen/ Hydrocodone Bitart ([place] (10325)) 1 tab QID PRN PO PAIN LEVEL 4-6 Last administered on 02/05/19 10:27; Admin Dose 1 TAB; Start 02/05/19 at 10:30 Topiramate (Topamax) 100 mg DAILY PO Last administered on 02/05/19at 10:26; Admin Dose 100 MG; Start 5/31/19 at 10:30 Latrell Kingston DO February 05, 2019 11:12
--- NOTE | 2019-02-05 14:03 | RADRPT ---
Echocardiogram Report Patient Name: RAHEEL BAKERPatient ID: [id number] : 1965 (53y 4m)Study Date: 02/05/2019 10:13:43 AM Gender: FAccession #: [id number] Tech: Jonathan [facility] Location: [facility] ([place]) Ref.Physician: YANNA BELL Height(Cm): BSA: Weight(Kg): Quality: AdequateOrder Physician: YANNA BELL Account #: Procedures: Echocardiographic Report: Transthoracic echocardiogram with complete 2D, M-Mode, and doppler examination. Indications: Chest Pain. Measurements: 2D/M Mode Doppler Measurement Value Normal Range Measurement Value Normal Range LVIDd 2D 5.1 [ 3.8 - 5.2 ] cm AV Peak Cody 1.1 [ 100.0 - 170.0 ] cm/sec LVIDs 2D 3.4 [ 2.2 - 3.5 ] cm AV Peak PG 5.0 [ 2.0 - 9.0 ] mmHg LVPWd 2D 0.6 [ 0.6 - 0.9 ] cm LVOT Peak Cody 0.9 [ 70.0 - 110.0 ] cm/sec IVSd 2D 1.1 [ 0.6 - 0.9 ] cm LVOT Peak PG 3.0 [ 2.0 - 6.0 ] mmHg AoR Diam 2D 2.6 [ 2.3 - 3.1 ] cm MV E Peak Cody 0.9 [ 60.0 - 130.0 ] cm/sec EDV 2D 123.0 [ 46.0 - 106.0 ] ml MV A Peak Cody 0.8 [ 100.0 - 120.0 ] cm/sec ESV 2D 48.5 [ 14.0 - 42.0 ] ml MV E/A 1.1 [ 0.8 - 1.5 ] ratio EF 2D 60.6 [ 54.0 - 74.0 ] percent MV Decel Time 264 [ 104 - 258 ] msec LA Dimen 2D 3.2 [ 2.7 - 3.8 ] cm Lat E` Cody 0.1 [ 10.0 - 15.0 ] cm/sec Lateral E/E` 7.4 [ 1.0 - 2.0 ] ratio MV E/A 1.1 [ 0.8 - 1.5 ] ratio TR Peak Cody 2.4 [ 100.0 - 280.0 ] cm/sec TR Peak PG 24.0 mmHg RVSP 27.0 [ 10.0 - 36.0 ] mmHg Findings: Left Ventricle: Normal left ventricular systolic function. Normal left ventricular cavity size. Sigmoid septum. Ejection fraction is visually estimated at 65 %. Right Ventricle: Normal right ventricular size. Normal right ventricular systolic function. Left Atrium: The left atrium is normal in size. Right Atrium: The right atrium is normal in size. Mitral Valve: Mild mitral leaflet calcification. Mild mitral annular calcification. Trace mitral regurgitation. Aortic Valve: No hemodynamically significant aortic stenosis by doppler. Aortic cusps appear mildly calcified. Tricuspid Valve: Normal appearance of the tricuspid valve. The estimated Peak RVSP is 27 mmHg. There is trace tricuspid regurgitation. Pericardium: Normal pericardium with no significant pericardial effusion. Aorta: Normal aortic root. IVC: Normal size and normal respiratory collapse consistent with normal right atrial pressure. Conclusions: Normal left ventricular systolic function. Normal left ventricular cavity size. Sigmoid septum. Ejection fraction is visually estimated at 65 %. Normal right ventricular size. Normal right ventricular systolic function. The left atrium is normal in size. The right atrium is normal in size. No significant valvular stenosis or regurgitation seen. Normal pericardium with no significant pericardial effusion. Electronically Signed By: Latrell Kingston 2019-02-05 14:02:30 PDT
[2019-02-05] MEDS ORDERED: ACET/BUTAL/CAFF TAB PO PRN (18:00)
[2019-02-05] MEDS: KETOROLAC 15 MG INJ IV PRN (20:36)
[2019-02-05] MEDS ORDERED: VENLAFAXINE (XR) 75 MG CAP PO SCH (21:00)
[2019-02-06] VITALS (11 sets, daily range): BP systolic 93–110; BP diastolic 57–66; PULSE 47–69; RESP 17–20
[2019-02-06] MEDS: HYDROCODONE/APAP (10/325) TAB PO PRN ×2 (00:21→06:50)
[2019-02-06] MEDS: KETOROLAC 15 MG INJ IV PRN (05:08)
[2019-02-06] MEDS: LEVOTHYROXINE 50 MCG TAB PO SCH (06:50)
[2019-02-06] MEDS ORDERED: POTASSIUM CHLORIDE (SR) 20 MEQ TAB PO STA (08:51)
[2019-02-06] MEDS: VENLAFAXINE (XR) 75 MG CAP PO SCH (09:14)
[2019-02-06] MEDS: ASPIRIN (EC) 81 MG TAB PO SCH (09:15)
[2019-02-06] MEDS: TOPIRAMATE 100 MG TAB PO SCH ×2 (09:15→21:16)
[2019-02-06] MEDS: GABAPENTIN 300 MG CAP PO SCH (09:15)
[2019-02-06] MEDS: NICOTINE (21 MG/24 HR) PATCH TRANSDERM SCH (09:18)
[2019-02-06] MEDS ORDERED: HYDROmorphONE 0.5 MG/0.5 ML SYG IV PRN (09:30)
[2019-02-06] MEDS ORDERED: MAGNESIUM SULFATE 2 GM/50 ML 50 ML IVPB ONE (11:30)
[2019-02-06] MEDS ORDERED: METOCLOPRAMIDE 10 MG INJ IV PRN (11:30)
[2019-02-06] MEDS ORDERED: LORAZEPAM 2 MG INJ IV PRN (11:30)
--- NOTE | 2019-02-06 13:46 | PN ---
Date/Time of Note Date/Time of Note DATE: 02/06/19 TIME: 13:39 Assessment/Plan VTE Prophylaxis Risk score (from Ns)>0 risk: 2 SCD applied (from Ns): Yes Pharmacological prophylaxis: NA/contraindicated Pharm contraindication: low risk/ambulating Lines/Catheters IV Catheter Type (from Nrsg): Saline Lock Assessment/Plan Assessment/Plan 1. Acute chest pain with radiation to digits b/l- resolved - appears more musculoskeletal vs stress related - serial trops negative - ECHO resulted noted - Cardiology consultation appreciated and cleared for discharge 2. Bradycardia - stable 3. Acute migraines - will check MRI/MRA to rule out pathological etiology for headache - pain control - zofran for nausea - will increase Topamax dose 4. Tobacco abuse - nicotine patch - cessation discussed 5. Depression - continue home medications - patient under a great deal of stress lately 6. GERD - will start Pepcid BID 7. hypothyroidism - Continue levothyroxine 8. Disposition - Will check MRI/MRA head to rule out pathological cause for headache. once symptoms improve and no further workup warranted will d/ home Result Diagram: 02/06/19 0603 02/06/19 0603 Results 24hrs Laboratory Tests Test 02/06/19 06:03 White Blood Count 6.7 Red Blood Count 3.79 L Hemoglobin 12.2 Hematocrit 36.6 L Mean Corpuscular Volume 96.6 Mean Corpuscular Hemoglobin 32.2 Mean Corpuscular Hemoglobin Concent 33.3 Red Cell Distribution Width 12.4 Platelet Count 221 Mean Platelet Volume 9.7 Immature Granulocytes % 0.100 Neutrophils % 56.4 Lymphocytes % 34.5 Monocytes % 5.8 Eosinophils % 2.8 Basophils % 0.4 Nucleated Red Blood Cells % 0.0 Immature Granulocytes # 0.010 Neutrophils # 3.8 Lymphocytes # 2.3 Monocytes # 0.4 Eosinophils # 0.2 Basophils # 0.0 Nucleated Red Blood Cells # 0.0 Sodium Level 142 Potassium Level 3.6 Chloride Level 112 H Carbon Dioxide Level 23 Anion Gap 7 Blood Urea Nitrogen 18 Creatinine 0.81 Glucose Level 95 Calcium Level 9.0 Phosphorus Level 4.6 Magnesium Level 2.2 Albumin 3.8 Subjective 24 Hr Interval Summary Free Text/Dictation Patient complaining of severe headache with dropping of left eye. Most likely migraine related. No acute overnight event. Exam/Review of Systems Exam Vitals Vital Signs Date Temp Pulse Resp B/P (MAP) Pulse Ox O2 O2 Flow FiO2 Time Delivery Rate 02/06/19 97.9 55 20 108/65 99 Room Air 11:19 (79) Intake and Output 02/05/19 02/05/19 02/06/19 1515:00 23:00 07:00 IntakeIntake Total 550 ml 450 ml BalanceBalance 550 ml 450 ml Exam General: Patient currently lying in bed, distress secondary to pain Eye: nystagmus noted bilaterally, mild ptosis left eye Lungs: Clear to auscultation bilaterally no crackles rales or wheezing Heart: Sinus bradycardia, no murmurs Abdomen: Soft , nontender, nondistended , bowel sounds are present. No guarding no rebound tenderness Extremities: Normal to inspection, no edema no cyanosis Neurologic: Normal mental status, speech normal, cranial nerves II through XII are intact, motor intact. diminished sensation fingertips Results Results 24hrs Laboratory Tests Test 02/06/19 06:03 White Blood Count 6.7 Red Blood Count 3.79 L Hemoglobin 12.2 Hematocrit 36.6 L Mean Corpuscular Volume 96.6 Mean Corpuscular Hemoglobin 32.2 Mean Corpuscular Hemoglobin Concent 33.3 Red Cell Distribution Width 12.4 Platelet Count 221 Mean Platelet Volume 9.7 Immature Granulocytes % 0.100 Neutrophils % 56.4 Lymphocytes % 34.5 Monocytes % 5.8 Eosinophils % 2.8 Basophils % 0.4 Nucleated Red Blood Cells % 0.0 Immature Granulocytes # 0.010 Neutrophils # 3.8 Lymphocytes # 2.3 Monocytes # 0.4 Eosinophils # 0.2 Basophils # 0.0 Nucleated Red Blood Cells # 0.0 Sodium Level 142 Potassium Level 3.6 Chloride Level 112 H Carbon Dioxide Level 23 Anion Gap 7 Blood Urea Nitrogen 18 Creatinine 0.81 Glucose Level 95 Calcium Level 9.0 Phosphorus Level 4.6 Magnesium Level 2.2 Albumin 3.8 Medications Medication Current Medications Nitroglycerin (Nitroglycerin (Sl Tab) 0.4 Mg) 1 tab Q5M UP TO 3 DOSES PRN SL .CHEST PAIN Last administered on 02/04/19at 21:22; Admin Dose 1 TAB; Start 02/04/19 at 21:30 Aspirin (Halfprin) 81 mg DAILY PO Last administered on 02/06/19at 09:15; Admin Dose 81 MG; Start 02/05/19 at 09:00 Gabapentin (Neurontin) 300 mg DAILY PO Last administered on 02/06/19 09:15; Admin Dose 300 MG; Start 02/05/19 at 09:00 Levothyroxine Sodium (Synthroid) 50 mcg BEFORE BREAKFAST PO Last administered on 02/06/19 06:50; Admin Dose 50 MCG; Start 02/05/19 at 07:00 IV Flush (NS 3 ml) 3 ml PER PROTOCOL IV ; Start 02/04/19 at 23:30 Ondansetron HCl (Zofran Inj) 4 mg Q6H PRN IV NAUSEA/VOMITING Last administered on 02/06/19 00:50; Admin Dose 4 MG; Start 02/04/19 at 23:30 Nitroglycerin (Nitroglycerin (Sl Tab) 0.4 Mg) 1 tab Q5M PRN SL .CHEST PAIN; Start 02/04/19 at 23:30 Acetaminophen (Tylenol Tab) 650 mg Q6H PRN PO .PAIN 1-3 OR TEMP; Start 02/04/19 at 23:30 Docusate Sodium (Colace) 100 mg Q12H PRN PO .CONSTIPATION; Start 02/04/19 at 23:30 Bisacodyl (Dulcolax) 5 mg DAILY PRN PO .CONSTIPATION; Start 02/04/19 at 23:30 Atropine Sulfate (Atropine (Syringe)) 0.5 mg PRN PRN IV for HR less than 35; Start 02/05/19 at 02:30 Nicotine (Nicoderm 21 Mg/ 24hr) 1 patch DAILY TRANSDERM Last administered on 02/06/19 09:18; Admin Dose 1 PATCH; Start 02/05/19 at 09:30 Venlafaxine HCl (Effexor Xr) 300 mg DAILY PO Last administered on 02/06/19 09:14; Admin Dose 300 MG; Start 02/05/19 at 10:30 Acetaminophen/ Hydrocodone Bitart ([place] (10/325)) 1 tab QID PRN PO PAIN LEVEL 4-6 Last administered on 02/06/19 06:50; Admin Dose 1 TAB; Start 02/05/19 at 10:30 Ketorolac Tromethamine (Toradol) 15 mg Q6H PRN IV PAIN LEVEL 1-3 Last administered on 02/06/19 05:08; Admin Dose 15 MG; Start 02/05/19 at 18:00; Stop 02/08/19 at 17:59 Acetaminophen/ Butalbital/ Caffeine (Fioricet) 1 tab Q4H PRN PO headache Last administered on 02/05/19at 21:42; Admin Dose 1 TAB; Start 02/05/19 at 18:00 Topiramate (Topamax) 100 mg BID PO ; Start 02/06/19 at 21:00 Lorazepam (Ativan) 1 mg ONCE PRN IV prior to MRI; Start 02/06/19 at 11:30; Stop 02/06/19 at 20:00 Metoclopramide HCl (Reglan) 10 mg Q4H PRN IV nausea; Start 02/06/19 at 11:30 Hydromorphone HCl (Dilaudid) 0.5 mg Q4H PRN IV SEVERE PAIN LEVEL 7-10; Start 02/06/19 at 13:30 ALENA PORTER MD Feb 06, 2019 13:46
[2019-02-06] MEDS: HYDROmorphONE 0.5 MG/0.5 ML SYG IV PRN ×2 (18:25→22:25)
[2019-02-06] MEDS: FAMOTIDINE 20 MG TAB PO SCH (21:15)
[2019-02-07] VITALS (7 sets, daily range): BP systolic 87–146; BP diastolic 51–63; PULSE 51–61; RESP 18–20
[2019-02-07] MEDS: HYDROmorphONE 0.5 MG/0.5 ML SYG IV PRN ×2 (04:59→10:02)
[2019-02-07] MEDS: LEVOTHYROXINE 50 MCG TAB PO SCH (06:30)
[2019-02-07] MEDS: ASPIRIN (EC) 81 MG TAB PO SCH (10:02)
[2019-02-07] MEDS: TOPIRAMATE 100 MG TAB PO SCH (10:02)
[2019-02-07] MEDS: FAMOTIDINE 20 MG TAB PO SCH (10:02)
[2019-02-07] MEDS: NICOTINE (21 MG/24 HR) PATCH TRANSDERM SCH (10:02)
[2019-02-07] MEDS: GABAPENTIN 300 MG CAP PO SCH (10:03)
[2019-02-07] MEDS: VENLAFAXINE (XR) 75 MG CAP PO SCH (10:03)
--- NOTE | 2019-02-07 12:02 | PN ---
Date/Time of Note Date/Time of Note DATE: 02/07/19 TIME: 11:51 Assessment/Plan VTE Prophylaxis Risk score (from Nsg)>0 risk: 1 SCD applied (from Nsg): Yes Pharmacological prophylaxis: NA/contraindicated Pharm contraindication: low risk/ambulating Lines/Catheters IV Catheter Type (from Nrsg): Saline Lock Assessment/Plan Assessment/Plan 1. Acute chest pain with radiation to digits b/l- resolved - appears more musculoskeletal vs stress related - serial trops negative - ECHO resulted noted - Cardiology consultation appreciated and cleared for discharge 2. Bradycardia - stable 3. Acute migraines - MRI/MRA results noted and discussed with patient. Will start Lipitor and encouraged smoking cessation - pain control - zofran for nausea - 4. Tobacco abuse - nicotine patch - cessation discussed 5. Depression - continue home medications - patient under a great deal of stress lately 6. GERD - H2 maggie 7. hypothyroidism - Continue levothyroxine 8. Disposition - Medically stable for discharge home Result Diagram: 02/07/19 0544 02/07/19 0544 Results 24hrs Laboratory Tests Test 02/07/19 05:44 White Blood Count 5.8 Red Blood Count 3.77 L Hemoglobin 12.1 Hematocrit 36.3 L Mean Corpuscular Volume 96.3 Mean Corpuscular Hemoglobin 32.1 Mean Corpuscular Hemoglobin Concent 33.3 Red Cell Distribution Width 12.4 Platelet Count 233 Mean Platelet Volume 9.8 Immature Granulocytes % 0.200 Neutrophils % 52.5 Lymphocytes % 36.2 Monocytes % 7.2 Eosinophils % 3.4 Basophils % 0.5 Nucleated Red Blood Cells % 0.0 Immature Granulocytes # 0.010 Neutrophils # 3.1 Lymphocytes # 2.1 Monocytes # 0.4 Eosinophils # 0.2 Basophils # 0.0 Nucleated Red Blood Cells # 0.0 Sodium Level 142 Potassium Level 3.9 Chloride Level 112 H Carbon Dioxide Level 23 Anion Gap 7 Blood Urea Nitrogen 15 Creatinine 0.70 Glucose Level 92 Calcium Level 9.2 Phosphorus Level 4.5 Magnesium Level 2.4 Albumin 3.9 Subjective 24 Hr Interval Summary Free Text/Dictation Patient still with migraine affecting left eye. Denies any nausea or vomiting. Exam/Review of Systems Exam Vitals Vital Signs Date Temp Pulse Resp B/P (MAP) Pulse Ox O2 O2 Flow FiO2 Time Delivery Rate 02/07/19 98.0 61 18 95/54 (68) 99 11:35 02/07/19 Room Air 07:21 Intake and Output 02/06/19 02/06/19 02/07/19 1515:00 23:00 07:00 IntakeIntake Total 960 ml 600 ml BalanceBalance 960 ml 600 ml Exam General: Patient currently lying in bed, distress secondary to pain Lungs: clear. no wheezing or rhonchi appreciated Heart: Sinus bradycardia, regular rhythm no murmurs Abdomen: Soft , nontender, nondistended , bowel sounds are present. No guarding no rebound tenderness Extremities: Normal to inspection, no edema no cyanosis Neurologic: Normal mental status, speech normal, cranial nerves II through XII are intact, motor intact. diminished sensation fingertips Results Results 24hrs Laboratory Tests Test 02/07/19 05:44 White Blood Count 5.8 Red Blood Count 3.77 L Hemoglobin 12.1 Hematocrit 36.3 L Mean Corpuscular Volume 96.3 Mean Corpuscular Hemoglobin 32.1 Mean Corpuscular Hemoglobin Concent 33.3 Red Cell Distribution Width 12.4 Platelet Count 233 Mean Platelet Volume 9.8 Immature Granulocytes % 0.200 Neutrophils % 52.5 Lymphocytes % 36.2 Monocytes % 7.2 Eosinophils % 3.4 Basophils % 0.5 Nucleated Red Blood Cells % 0.0 Immature Granulocytes # 0.010 Neutrophils # 3.1 Lymphocytes # 2.1 Monocytes # 0.4 Eosinophils # 0.2 Basophils # 0.0 Nucleated Red Blood Cells # 0.0 Sodium Level 142 Potassium Level 3.9 Chloride Level 112 H Carbon Dioxide Level 23 Anion Gap 7 Blood Urea Nitrogen 15 Creatinine 0.70 Glucose Level 92 Calcium Level 9.2 Phosphorus Level 4.5 Magnesium Level 2.4 Albumin 3.9 Medications Medication Current Medications Nitroglycerin (Nitroglycerin (Sl Tab) 0.4 Mg) 1 tab Q5M UP TO 3 DOSES PRN SL .CHEST PAIN Last administered on 02/04/19at 21:22; Admin Dose 1 TAB; Start 02/04/19 at 21:30 Aspirin (Halfprin) 81 mg DAILY PO Last administered on 02/07/19at 10:02; Admin Dose 81 MG; Start 02/05/19 at 09:00 Gabapentin (Neurontin) 300 mg DAILY PO Last administered on 02/07/19at 10:03; Admin Dose 300 MG; Start 02/05/19 at 09:00 Levothyroxine Sodium (Synthroid) 50 mcg BEFORE BREAKFAST PO Last administered on 02/07/19 06:30; Admin Dose 50 MCG; Start 02/05/19 at 07:00 IV Flush (NS 3 ml) 3 ml PER PROTOCOL IV ; Start 02/04/19 at 23:30 Ondansetron HCl (Zofran Inj) 4 mg Q6H PRN IV NAUSEA/VOMITING Last administered on 02/06/19at 00:50; Admin Dose 4 MG; Start 02/04/19 at 23:30 Nitroglycerin (Nitroglycerin (Sl Tab) 0.4 Mg) 1 tab Q5M PRN SL .CHEST PAIN; Start 02/04/19 at 23:30 Acetaminophen (Tylenol Tab) 650 mg Q6H PRN PO .PAIN 1-3 OR TEMP Last administered on 02/07/19at 01:04; Admin Dose 650 MG; Start 02/04/19 at 23:30 Docusate Sodium (Colace) 100 mg Q12H PRN PO .CONSTIPATION; Start 02/04/19 at 23:30 Bisacodyl (Dulcolax) 5 mg DAILY PRN PO .CONSTIPATION; Start 02/04/19 at 23:30 Atropine Sulfate (Atropine (Syringe)) 0.5 mg PRN PRN IV for HR less than 35; Start 02/05/19 at 02:30 Nicotine (Nicoderm 21 Mg/ 24hr) 1 patch DAILY TRANSDERM Last administered on 02/07/19at 10:02; Admin Dose 1 PATCH; Start 02/05/19 at 09:30 Venlafaxine HCl (Effexor Xr) 300 mg DAILY PO Last administered on 02/07/19at 10:03; Admin Dose 300 MG; Start 02/05/19 at 10:30 Acetaminophen/ Hydrocodone Bitart ([place] (10/325)) 1 tab QID PRN PO PAIN LEVEL 4-6 Last administered on 02/06/19at 06:50; Admin Dose 1 TAB; Start 02/05/19 at 10:30 Ketorolac Tromethamine (Toradol) 15 mg Q6H PRN IV PAIN LEVEL 1-3 Last administered on 02/06/19 05:08; Admin Dose 15 MG; Start 02/05/19 at 18:00; Stop 02/08/19 at 17:59 Acetaminophen/ Butalbital/ Caffeine (Fioricet) 1 tab Q4H PRN PO headache Last administered on 02/05/19at 21:42; Admin Dose 1 TAB; Start 02/05/19 at 18:00 Topiramate (Topamax) 100 mg BID PO Last administered on 02/07/19at 10:02; Admin Dose 100 MG; Start 02/06/19 at 21:00 Metoclopramide HCl (Reglan) 10 mg Q4H PRN IV nausea; Start 02/06/19 at 11:30 Hydromorphone HCl (Dilaudid) 0.5 mg Q4H PRN IV SEVERE PAIN LEVEL 7-10 Last administered on 02/07/19at 10:02; Admin Dose 0.5 MG; Start 02/06/19 at 13:30 Famotidine (Pepcid) 20 mg BID PO Last administered on 02/07/19at 10:02; Admin Dose 20 MG; Start 02/06/19 at 21:00 Atorvastatin Calcium (Lipitor) 40 mg HS PO ; Start 02/07/19 at 21:00; Status ALENA BENNETT MD Feb 07, 2019 12:02
[2019-02-07] MEDS ORDERED: ATOR40TA68 PO (12:10)
[2019-02-07] MEDS ORDERED: TOPI100T11 PO (12:10)
[2019-02-07] MEDS ORDERED: FAMO20TA18 PO (12:10)
[2019-02-07] MEDS ORDERED: NICO-546 TRANSDERM (12:10)
[2019-02-07] MEDS ORDERED: BUTA1CAP35 PO (12:10)
--- NOTE | 2019-02-07 12:13 | PDOCDIS ---
Discharge Instructions DIAGNOSIS Discharge Diagnosis 1. Acute chest pain with radiation to digits b/l- resolved 2. Bradycardia, stable 3. Acute migraines 4. Tobacco abuse 5. Depression 6. GERD 7. hypothyroidism CONDITION [id number] Patient Condition: [id number] Stable HOME CARE INSTRUCTIONS: [id number] Diet Instructions: [id number] Low Fat /Cholesterol ACTIVITY: [id number] Activity Restrictions: [id number] No Restrictions FOLLOW UP/APPOINTMENTS Follow-up Plan 1. Follow up with your primary care physician in 1-2 weeks 2. Take all medications as prescribed. Your Topamax was increased to twice a day to help prevent migraines 3. Take Fioricet, 2 tablets as needed for headaches 4. Continue nicotine patch, 21mg and ask your PCP for prescriptions to continue the taper of 14mg and 7mg 5. Increase physical therapy and eat healthy diet as discussed 6. If experiencing any concerning symptoms, please return to the closest emergency department ALENA PORTER MD Feb 07, 2019 12:13
--- NOTE | 2019-02-07 14:50 | DS ---
Date/Time of Note Date/Time of Note DATE: 02/07/19 TIME: 14:46 Discharge Summary Admission/Discharge Info Admit Date/Time Feb 06, 2019 at 11:11 Discharge Date/Time Feb 07, 2019 at 13:52 Discharge Diagnosis 1. Acute chest pain with radiation to digits b/l- resolved 2. Bradycardia, stable 3. Acute migraines 4. Tobacco abuse 5. Depression 6. GERD 7. hypothyroidism Patient Condition: Stable Consults Cardiology- Dr. Vashti Arthur of Present Illness Chief complaint: Chest pain This is a 53-year-old female who presented to the emergency department compl aining of chest pain. She stated that while she was driving she started feeling left-sided chest pain radiating down to her left arm. She also felt numb leg and tingling on her left hand. She started feeling dizzy and so she pulled over. She denies syncope. She denies any recent stressors. She does have a history of depression. She reported the chest pain is a pressure-like sensation and occasionally sharp. She denies any nausea vomiting or diarrhea. during my examination I did notice that the patient one down to the 40s on telemetry. She at that time was reporting a headache. She states that the headache started after she got the nitro patch in the emergency department. I did remove the nitro patch at the current time. Allergies: Morphine Medications: See [facility] Hospital Course Patient was admitted for workup of acute chest pain and seen by Cardiology. Serial troponins were negative and ECHO showed preserved ejection fraction. Patient was complaining of migraines with dropping of left eye lid. MRI and MRA was performed with noted narrowing of ICA. Discussion was held with patient rega rding dietary changes and smoking cessation. Adjustments were made to patients medication regime to help control migraines and pain. Patients presenting symptoms improved and she was discharged home in good condition. Home Meds Active Scripts Famotidine* (Famotidine*) 20 Mg Tablet, 20 MG PO BID PRN for reflux for 30 Days, #60 TAB Prov:ALENA PORTER MD 02/07/19 Butalb/Acetaminophen/Caffeine ([id number] [id number]) 1 Each Capsule, 2 TAB PO Q8H PRN for headache for 5 Days, #30 CAP Prov:ALENA PORTER MD 02/07/19 Atorvastatin* (Atorvastatin*) 40 Mg Tablet, 40 MG PO HS for 30 Days, #30 TAB Prov:ALENA PORTER MD 02/07/19 Nicotine* (Nicotine* Patch) 21 mg/day Patch, 1 PATCH TRANSDERM DAILY for 40 Days, #40 PATCH Prov:ALENA PORTER MD 02/07/19 Topiramate* (Topiramate*) 100 Mg Tablet, 100 MG PO BID for 30 Days, #60 TAB Prov:ALENA PORTER MD 02/07/19 Reported Medications Hydrocodone/Acetaminophen ([place] 10-325 Tablet) 1 Each Tablet, 1 EACH PO QID, TAB 01/15/19 Venlafaxine Hcl* (Venlafaxine Hcl ER*) 150 Mg Cap.er.24h, 300 MG PO QHS, CAP 01/15/19 Aspirin* (Aspirin* EC) 81 Mg Tablet.dr, 81 MG PO DAILY, TAB 01/15/19 Levothyroxine Sodium* (Levothyroxine Sodium*) 50 Mcg Tablet, 50 MCG PO BEFORE BREAKFAST, #30 TAB 01/15/19 Gabapentin* (Gabapentin*) 300 Mg Capsule, 300 MG PO DAILY, #60 CAP 01/15/19 Follow-up Plan 1. Follow up with your primary care physician in 1-2 weeks 2. Take all medications as prescribed. Your Topamax was increased to twice a day to help prevent migraines 3. Take Fioricet, 2 tablets as needed for headaches 4. Continue nicotine patch, 21mg and ask your PCP for prescriptions to continue the taper of 14mg and 7mg 5. Increase physical therapy and eat healthy diet as discussed 6. If experiencing any concerning symptoms, please return to the closest emergency department Primary Care Provider Yanira Mathis Time spent on discharge: > 30 minutes Pending Labs Laboratory Tests Test 02/07/19 05:44 White Blood Count 5.8 10^3/ul (4.8-10.8) Red Blood Count 3.77 10^6/ul (4.20-5.40) Hemoglobin 12.1 g/dl (12.0-16.0) Hematocrit 36.3 % (37.0-47.0) Mean Corpuscular Volume 96.3 fl (82.0-101.0) Mean Corpuscular Hemoglobin 32.1 pg (29.0-33.0) Mean Corpuscular Hemoglobin Concent 33.3 g/dl (32.0-37.0) Red Cell Distribution Width 12.4 % (11.5-14.5) Platelet Count 233 10^3/UL (140-415) Mean Platelet Volume 9.8 fl (7.4-10.4) Immature Granulocytes % 0.200 % (0.001-0.429) Neutrophils % 52.5 % (39.0-77.0) Lymphocytes % 36.2 % (15.0-51.0) Monocytes % 7.2 % (0.0-11.0) Eosinophils % 3.4 % (0.0-7.0) Basophils % 0.5 % (0.0-2.0) Nucleated Red Blood Cells % 0.0 /100WBC (0.0-0.0) Immature Granulocytes # 0.010 10^3/ul (0.0-0.031) Neutrophils # 3.1 10^3/ul (1.6-7.5) Lymphocytes # 2.1 10^3/ul (0.8-2.9) Monocytes # 0.4 10^3/ul (0.3-0.9) Eosinophils # 0.2 10^3/ul (0.0-0.5) Basophils # 0.0 10^3/ul (0.0-0.1) Nucleated Red Blood Cells # 0.0 10^3/ul (0.0-0.0) Sodium Level 142 mmol/L (135-144) Potassium Level 3.9 mmol/L (3.5-5.1) Chloride Level 112 mmol/L (97-110) Carbon Dioxide Level 23 mmol/L (21-31) Anion Gap 7 (5-13) Blood Urea Nitrogen 15 mg/dl (7-20) Creatinine 0.70 mg/dl (0.44-1.00) Glucose Level 92 mg/dl (70-220) Calcium Level 9.2 mg/dl (8.4-10.2) Phosphorus Level 4.5 mg/dl (2.5-4.9) Magnesium Level 2.4 mg/dl (1.7-2.5) Albumin 3.9 g/dl (3.3-4.9) ALENA PORTER MD Feb 07, 2019 14:50
[2019-02-07] MEDS ORDERED: ATORVASTATIN 40 MG TAB PO SCH (21:00)
--- NOTE | 2019-02-08 17:36 | RADRPT ---
Vent Rate: 50 bpm RR Interval: 1192 msec IA Interval: 118 msec QRS Duration: 96 msec QT Interval: 487 msec QTC Interval: 446 msec P-R-T [place]: 41 - 53 - 73 degrees marked sinus bradycardia Electronically Signed By: Eladio Torres
== END 2019-02-07 13:52 | disposition home or self-care (01) | DRG 313 ==
LOC: E/R 19:20 → TEL 23:18 → EDBEDREQSVC 02-05 02:38 → OBSVTOIN 02-06 11:11
PROVIDERS: ADMIT Family Medicine; ATTEND Internal Medicine
DX: R07.9 Chest pain, unspecified (principal); R00.1 Bradycardia, unspecified; J45.909 Unspecified asthma, uncomplicated; F32.9 Major depressive disorder, single episode, unspecified; E03.9 Hypothyroidism, unspecified; F17.200 Nicotine dependence, unspecified, uncomplicated; G89.4 Chronic pain syndrome; R20.2 Paresthesia of skin; G43.909 Migraine, unspecified, not intractable, without status migrainosus; K21.9 Gastro-esophageal reflux disease without esophagitis
CPT/HCPCS: 36415; 70545; 70552; 71045; 80048; 80053; 80069; 80307; 82550; 82553; 83036; 83735; 84443; 84484; 85025; 93005; 93306; G0378; J1170; J1885; J2060; J2405; J3475